=== PATIENT | male | born 1945 | race Hispanic/Latino ===

== ENCOUNTER 2019-09-30 23:44 | Emergency (ER) | payer MEDICARE ==
[~2019-09-30] VITALS: Ht 175.3 cm; Wt 85.7 kg
--- OUTSIDE RECORDS SUMMARY | 2019-09-30 23:49 | XMS REPORT ---
Author [facility] Address Unknown Phone Unavailable Care Team Providers Care Special Needs Teacher Name Role Phone Unavailable Unavailable Payers Payer Name Policy Type Policy Number Effective Date Expiration Date Problems This patient has no known problems. Allergies, Adverse Reactions, Alerts Allergy Name Allergy Type Status Severity Reaction(s) Onset Date Inactive Date Treating Clinician Comments No Known Allergies DA Active U 2019-08-21 00:00:00 No Known Contrast Allergies DA Active U 2005-10-22 00:00:00 No Known Drug Allergies DA Active U 2005-10-22 00:00:00 No Known Food Allergies DA Active U 2005-10-22 00:00:00 Medications This patient has no known medications. Results Test Description Test Time Test Comments Text Results Atomic Results Result Comments GLUBED 2019-09-18 10:03:00 GLUBED (test code=GLUBED) 151 mg/dL 74-106 Performed by certified blanching machine operator at [facility] [id number] 11:13:00* Test Item Value Reference Range Comments GLUBED (test code=GLUBED) 106 mg/dL 74-106 Performed by certified blanching machine operator at [facility] [id number] 07:37:00* Test Item Value Reference Range Comments GLUBED (test code=GLUBED) 125 mg/dL 74-106 Performed by certified blanching machine operator at [facility] [id number] 20:26:00* Test Item Value Reference Range Comments GLUBED (test code=GLUBED) 113 mg/dL 74-106 Performed by certified blanching machine operator at [facility] [id number] 14:51:00* Test Item Value Reference Range Comments GLUBED (test code=GLUBED) 130 mg/dL 74-106 Performed by certified blanching machine operator at [facility] [id number] 11:24:00* Test Item Value Reference Range Comments GLUBED (test code=GLUBED) 123 mg/dL 74-106 Performed by certified blanching machine operator at [facility] [id number] 07:41:00* Test Item Value Reference Range Comments GLUBED (test code=GLUBED) 127 mg/dL 74-106 Performed by certified blanching machine operator at [facility] [id number] 19:56:00* Test Item Value Reference Range Comments GLUBED (test code=GLUBED) 118 mg/dL 74-106 Performed by certified blanching machine operator at [facility] [id number] 16:51:00* Test Item Value Reference Range Comments GLUBED (test code=GLUBED) 120 mg/dL 74-106 [facility] certified blanching machine [facility] GASTRIC,[id number] 15:40:00 RUN DATE: 09/07/19 [place] - Lab PAGE 1 RUN TIME: 1540 Specimen Inqui ry RUN USER: INTERFACE PATIENT: MULUGETA DOTSON ACCT #: [id number] LOC: [facility] U #: [id number] AGE/SX: 73/M [facility] DR: Atul Maynard MD : 43 BED: A DIS: STATUS: ADM IN TLOC: SPEC #: [id number] RECD: 09/03/19 STATUS: EZEKIEL REQ #: [id number] NEEMA: 09/03/[address] [facility] [address]: Vikas Egan MD ENTERED: 09/03/19 SP TYPE: GASTRIC BX OTHR DR: Deondre Egan MD, Lawrence R MD Gonzalez, Julian J MD Guthikonda, Lalitha N MD Kalife, Gerardo MD Lee, Remington Pek Fong DO Pham, Dang Thanh MDORDERED: GROSS COPIES TO: Vikas Egan MD [address] [place] [address] Beka Louis MD [address] [place], [place] [id number] [place] [address] [place] [address] [place] [address] [facility] [place] [address] Deion Edgar MD [address] [place] [address] Tay Morrow DO [address] [place], [place] [address] Smitha Cruz MD [address] [place] [address] CONTINUED ON NEXT PAGE RUN DATE: 0 09/07/19 [facility] PAGE 2 RUN TIME: 1540 Specimen Inquiry R UN USER: INTERFACE --- ---------SPEC #: [id number] PATIENT: MULUGETA DOTSON #[id number] (Continued) PROCEDURES: GROSS (09/07/19-946) TISSUES: ANTRUM - BX CLINICAL HISTORY COLLECTION DATE: 09/03/19 DY SPHAGIA FINAL DIAGNOSIS Antrum, biopsy: CHRONIC INACTIVE GASTR ITIS NO INTESTINAL METAPLASIA SEEN NEGATIVE FOR HELICOBACTER PYLO RI BY GIEMSA STAIN NEGATIVE FOR MALIGNANCY DMW/[place]a D [id number], [address] MACROSCOPIC The specimen is received in formalin, labeled wi th the patient's name, and identified as "antrum bx", and consists of two ramirez biopsy tissue measuring 0.3 cm each. GROSS PERFORMED AT [facility] [address] [facility] [address] (P)[phone] MICROSCOPIC All of the stains, including any controls performed, stain appropriately. MICROSCOPIC PERFO RMED AT [facility] [address] [facility] [place] [address] (P)[phone] CONTINUED ON NEXT PAGE RUN DATE: 09/07/19 [place] [employer] [facility] PAGE 3 RUN TIME: 1540 Specimen Inquiry RUN USER: INTERFACE SPEC #: [id number] PATIENT: MULUGETA DOTSON #[id number] (Continued)--------- --- PERFORMING SITE Diagnosis performed at: [facility], [place] [address] [place] [address] Signed SIGNATURE ON FILE Clair East MD 09/07/19 1540 END OF REPORT [id number] 11:48:00* Test Item Value Reference Range Comments GLUBED (test code=GLUBED) 140 mg/dL 74-106 [facility] certified blanching machine [facility] [id number] 08:47:00* Test Item Value Reference Range Comments GLUBED (test code=GLUBED) 125 mg/dL 74-106 Performed by certified blanching machine operator [facility] BASIC METABOLIC [id number] 02:31:00* Test Item Value Reference Range Comments SODIUM (test code=NA) 137 mmol/L 136-145 POTASSIUM (test code=K) 4.2 mmol/L 3.5-5.1 CHLORIDE (test code=CL) 106.0 mmol/L 98-107 CARBON DIOXIDE (test code=CO2) 26.0 mmol/L 21-32 ANION GAP (test code=GAP) 9.2 10-20 GLUCOSE (test code=GLU) 136 mg/dL 74-106 BLOOD UREA NITROGEN (test code=BUN) 18 mg/dL 7-18 GLOMERULAR FILTRATION RATE (test code=GFR) > 60 mL/min >=60 Estimated GFR by using Modified MDRD formula.Chronic kidney disease is defined as either kidney damageor GFR <60 mL/min/1.73 m2 for >3 months. CREATININE (test code=CREAT) 0.80 mg/dL 0.7-1.3 BUN/CREATININE RATIO (test code=BUN/CREA) 23.7 10-20 CALCIUM (test code=CA) 7.9 mg/dL 8.5-10.1 [id number] 02:31:00* Test Item Value Reference Range Comments MAGNESIUM (test code=MAG) 2.0 mg/dL 1.8-2.4 BASIC METABOLIC [id number] 02:20:00* Test Item Value Reference Range Comments SODIUM (test code=NA) 137 mmol/L 136-145 POTASSIUM (test code=K) 4.2 mmol/L 3.5-5.1 CHLORIDE (test code=CL) 106.0 mmol/L 98-107 CARBON DIOXIDE (test code=CO2) mmol/L 21-32 ANION GAP (test code=GAP) 10-20 GLUCOSE (test code=GLU) mg/dL 74-106 BLOOD UREA NITROGEN (test code=BUN) mg/dL 7-18 GLOMERULAR FILTRATION RATE (test code=GFR) mL/min >=60 CREATININE (test code=CREAT) mg/dL 0.7-1.3 BUN/CREATININE RATIO (test code=BUN/CREA) 10-20 CALCIUM (test code=CA) mg/dL 8.5-10.1 [id number] 02:20:00* Test Item Value Reference Range Comments MAGNESIUM (test code=MAG) mg/dL 1.8-2.4 CBC W/O [id number] 02:10:00* Test Item Value Reference Range Comments WHITE BLOOD CELL (test code=WBC) 11.5 K/mm3 4.5-12.5 RED BLOOD CELL (test code=RBC) 4.39 mill/mm3 4.0-5.8 HEMOGLOBIN (test code=HGB) 12.0 gram/dL 13.0-17.5 HEMATOCRIT (test code=HCT) 37.8 % 42.0-52.0 MEAN CELL VOLUME (test code=MCV) 86.1 fL 80-98 MEAN CELL HGB (test code=MCH) 27.3 picogram 27.0-33.0 MEAN CELL HGB CONCETRATION (test code=MCHC) 31.7 gram/dL 33.0-36.0 RED CELL DISTRIBUTION WIDTH (test code=RDW) 13.8 % 11.6-16.2 PLATELET COUNT (test code=PLT) 404 K/mm3 150-450 MEAN PLATELET VOLUME (test code=MPV) 11.3 fL 6.7-11.0 [id number] 20:16:00* Test Item Value Reference Range Comments GLUBED (test code=GLUBED) 130 mg/dL 74-106 Performed by certified blanching machine operator at [facility] [id number] 16:29:00* Test Item Value Reference Range Comments GLUBED (test code=GLUBED) 116 mg/dL 74-106 Performed by certified blanching machine operator at [facility] [id number] 11:46:00* Test Item Value Reference Range Comments GLUBED (test code=GLUBED) 121 mg/dL 74-106 Performed by certified blanching machine operator at [facility] [id number] 08:17:00* Test Item Value Reference Range Comments GLUBED (test code=GLUBED) 134 mg/dL 74-106 Performed by certified blanching machine operator at [facility] BASIC METABOLIC [id number] 07:39:00* Test Item Value Reference Range Comments SODIUM (test code=NA) 140 mmol/L 136-145 POTASSIUM (test code=K) 4.5 mmol/L 3.5-5.1 CHLORIDE (test code=CL) 107.0 mmol/L 98-107 CARBON DIOXIDE (test code=CO2) 28.0 mmol/L 21-32 ANION GAP (test code=GAP) 9.5 10-20 GLUCOSE (test code=GLU) 110 mg/dL 74-106 BLOOD UREA NITROGEN (test code=BUN) 18 mg/dL 7-18 GLOMERULAR FILTRATION RATE (test code=GFR) > 60 mL/min >=60 Estimated GFR by using Modified MDRD formula.Chronic kidney disease is defined as either kidney damageor GFR <60 mL/min/1.73 m2 for >3 months. CREATININE (test code=CREAT) 0.80 mg/dL 0.7-1.3 BUN/CREATININE RATIO (test code=BUN/CREA) 21.8 10-20 CALCIUM (test code=CA) 7.5 mg/dL 8.5-10.1 CBC W/O [id number] 03:38:00* Test Item Value Reference Range Comments WHITE BLOOD CELL (test code=WBC) 13.2 K/mm3 4.5-12.5 RED BLOOD CELL (test code=RBC) 4.62 mill/mm3 4.0-5.8 HEMOGLOBIN (test code=HGB) 12.8 gram/dL 13.0-17.5 HEMATOCRIT (test code=HCT) 39.7 % 42.0-52.0 MEAN CELL VOLUME (test code=MCV) 85.9 fL 80-98 MEAN CELL HGB (test code=MCH) 27.7 picogram 27.0-33.0 MEAN CELL HGB CONCETRATION (test code=MCHC) 32.2 gram/dL 33.0-36.0 RED CELL DISTRIBUTION WIDTH (test code=RDW) 13.7 % 11.6-16.2 PLATELET COUNT (test code=PLT) 376 K/mm3 150-450 RESULT VERIFIED BY REPEAT ANALYSIS MEAN PLATELET VOLUME (test code=MPV) 11.6 fL 6.7-11.0 [id number] 03:04:00* Test Item Value Reference Range Comments MAGNESIUM (test code=MAG) 2.3 mg/dL 1.8-2.4 BASIC METABOLIC [id number] 05:58:00* Test Item Value Reference Range Comments SODIUM (test code=NA) 140 mmol/L 136-145 POTASSIUM (test code=K) 4.3 mmol/L 3.5-5.1 CHLORIDE (test code=CL) 109.0 mmol/L 98-107 CARBON DIOXIDE (test code=CO2) 27.0 mmol/L 21-32 ANION GAP (test code=GAP) 8.3 10-20 GLUCOSE (test code=GLU) 114 mg/dL 74-106 BLOOD UREA NITROGEN (test code=BUN) 22 mg/dL 7-18 GLOMERULAR FILTRATION RATE (test code=GFR) > 60 mL/min >=60 Estimated GFR by using Modified MDRD formula.Chronic kidney disease is defined as either kidney damageor GFR <60 mL/min/1.73 m2 for >3 months. CREATININE (test code=CREAT) 0.70 mg/dL 0.7-1.3 BUN/CREATININE RATIO (test code=BUN/CREA) 29.6 10-20 CALCIUM (test code=CA) 7.4 mg/dL 8.5-10.1 [id number] 05:58:00* Test Item Value Reference Range Comments PHOSPHORUS (test code=PHOS) 2.5 mg/dL 2.5-4.9 [id number] 05:58:00* Test Item Value Reference Range Comments MAGNESIUM (test code=MAG) 2.4 mg/dL 1.8-2.4 CALCIUM [id number] 05:58:00* Test Item Value Reference Range Comments CALCIUM IONIZED (test code=SHANNAN) 1.15 mmol/L 1.12-1.32 BASIC METABOLIC [id number] 05:47:00* Test Item Value Reference Range Comments SODIUM (test code=NA) 140 mmol/L 136-145 POTASSIUM (test code=K) 4.3 mmol/L 3.5-5.1 CHLORIDE (test code=CL) 109.0 mmol/L 98-107 CARBON DIOXIDE (test code=CO2) 27.0 mmol/L 21-32 ANION GAP (test code=GAP) 8.3 10-20 GLUCOSE (test code=GLU) 114 mg/dL 74-106 BLOOD UREA NITROGEN (test code=BUN) 22 mg/dL 7-18 GLOMERULAR FILTRATION RATE (test code=GFR) > 60 mL/min >=60 Estimated GFR by using Modified MDRD formula.Chronic kidney disease is defined as either kidney damageor GFR <60 mL/min/1.73 m2 for >3 months. CREATININE (test code=CREAT) 0.70 mg/dL 0.7-1.3 BUN/CREATININE RATIO (test code=BUN/CREA) 29.6 10-20 CALCIUM (test code=CA) 7.4 mg/dL 8.5-10.1 [id number] 05:47:00* Test Item Value Reference Range Comments PHOSPHORUS (test code=PHOS) 2.5 mg/dL 2.5-4.9 [id number] 05:47:00* Test Item Value Reference Range Comments MAGNESIUM (test code=MAG) 2.4 mg/dL 1.8-2.4 CALCIUM [id number] 05:47:00* Test Item Value Reference Range Comments CALCIUM IONIZED (test code=SHANNAN) mmol/L 1.12-1.32 BASIC METABOLIC [id number] 05:45:00* Test Item Value Reference Range Comments SODIUM (test code=NA) 140 mmol/L 136-145 POTASSIUM (test code=K) 4.3 mmol/L 3.5-5.1 CHLORIDE (test code=CL) 109.0 mmol/L 98-107 CARBON DIOXIDE (test code=CO2) mmol/L 21-32 ANION GAP (test code=GAP) 10-20 GLUCOSE (test code=GLU) mg/dL 74-106 BLOOD UREA NITROGEN (test code=BUN) mg/dL 7-18 GLOMERULAR FILTRATION RATE (test code=GFR) mL/min >=60 CREATININE (test code=CREAT) mg/dL 0.7-1.3 BUN/CREATININE RATIO (test code=BUN/CREA) 10-20 CALCIUM (test code=CA) mg/dL 8.5-10.1 [id number] 05:45:00* Test Item Value Reference Range Comments PHOSPHORUS (test code=PHOS) mg/dL 2.5-4.9 [id number] 05:45:00* Test Item Value Reference Range Comments MAGNESIUM (test code=MAG) mg/dL 1.8-2.4 CALCIUM [id number] 05:45:00* Test Item Value Reference Range Comments CALCIUM IONIZED (test code=SHANNAN) mmol/L 1.12-1.32 CBC W/O [id number] 05:36:00* Test Item Value Reference Range Comments WHITE BLOOD CELL (test code=WBC) 14.2 K/mm3 4.5-12.5 RED BLOOD CELL (test code=RBC) 4.72 mill/mm3 4.0-5.8 HEMOGLOBIN (test code=HGB) 13.1 gram/dL 13.0-17.5 HEMATOCRIT (test code=HCT) 40.8 % 42.0-52.0 MEAN CELL VOLUME (test code=MCV) 86.4 fL 80-98 MEAN CELL HGB (test code=MCH) 27.8 picogram 27.0-33.0 MEAN CELL HGB CONCETRATION (test code=MCHC) 32.1 gram/dL 33.0-36.0 RED CELL DISTRIBUTION WIDTH (test code=RDW) 13.4 % 11.6-16.2 PLATELET COUNT (test code=PLT) 276 K/mm3 150-450 MEAN PLATELET VOLUME (test code=MPV) 11.7 fL 6.7-11.0 CBC W/O [id number] 05:34:00* Test Item Value Reference Range Comments WHITE BLOOD CELL (test code=WBC) K/mm3 4.5-12.5 RED BLOOD CELL (test code=RBC) mill/mm3 4.0-5.8 HEMOGLOBIN (test code=HGB) 13.1 gram/dL 13.0-17.5 HEMATOCRIT (test code=HCT) % 42.0-52.0 MEAN CELL VOLUME (test code=MCV) fL 80-98 MEAN CELL HGB (test code=MCH) picogram 27.0-33.0 MEAN CELL HGB CONCETRATION (test code=MCHC) gram/dL 33.0-36.0 RED CELL DISTRIBUTION WIDTH (test code=RDW) % 11.6-16.2 PLATELET COUNT (test code=PLT) K/mm3 150-450 MEAN PLATELET VOLUME (test code=MPV) fL 6.7-11.0 THROMBOPLASTIN TIME [id number] 09:56:00* Test Item Value Reference Range Comments THROMBOPLASTIN TIME PARTIAL (test code=PTT) 67.2 seconds 25.0-36.5 IS PATIENT ON ANTICOAGULANTS? YLIST ANTICOAGULANTS HEPARINBASIC METABOLIC [id number] 05:09:00* Test Item Value Reference Range Comments SODIUM (test code=NA) 141 mmol/L 136-145 POTASSIUM (test code=K) 4.6 mmol/L 3.5-5.1 CHLORIDE (test code=CL) 108.0 mmol/L 98-107 CARBON DIOXIDE (test code=CO2) 31.0 mmol/L 21-32 ANION GAP (test code=GAP) 6.6 10-20 GLUCOSE (test code=GLU) 118 mg/dL 74-106 BLOOD UREA NITROGEN (test code=BUN) 37 mg/dL 7-18 RESULT VERIFIED BY REPEAT ANALYSIS GLOMERULAR FILTRATION RATE (test code=GFR) > 60 mL/min >=60 Estimated GFR by using Modified MDRD formula.Chronic kidney disease is defined as either kidney damageor GFR <60 mL/min/1.73 m2 for >3 months. CREATININE (test code=CREAT) 1.10 mg/dL 0.7-1.3 BUN/CREATININE RATIO (test code=BUN/CREA) 33.6 10-20 CALCIUM (test code=CA) 7.7 mg/dL 8.5-10.1 [id number] 05:09:00* Test Item Value Reference Range Comments PHOSPHORUS (test code=PHOS) 2.8 mg/dL 2.5-4.9 [id number] 05:09:00* Test Item Value Reference Range Comments MAGNESIUM (test code=MAG) 2.7 mg/dL 1.8-2.4 CALCIUM [id number] 05:09:00* Test Item Value Reference Range Comments CALCIUM IONIZED (test code=SHANNAN) 1.14 mmol/L 1.12-1.32 BASIC METABOLIC [id number] 04:47:00* Test Item Value Reference Range Comments SODIUM (test code=NA) 141 mmol/L 136-145 POTASSIUM (test code=K) 4.6 mmol/L 3.5-5.1 CHLORIDE (test code=CL) 108.0 mmol/L 98-107 CARBON DIOXIDE (test code=CO2) 31.0 mmol/L 21-32 ANION GAP (test code=GAP) 6.6 10-20 GLUCOSE (test code=GLU) 118 mg/dL 74-106 BLOOD UREA NITROGEN (test code=BUN) 37 mg/dL 7-18 RESULT VERIFIED BY REPEAT ANALYSIS GLOMERULAR FILTRATION RATE (test code=GFR) > 60 mL/min >=60 Estimated GFR by using Modified MDRD formula.Chronic kidney disease is defined as either kidney damageor GFR <60 mL/min/1.73 m2 for >3 months. CREATININE (test code=CREAT) 1.10 mg/dL 0.7-1.3 BUN/CREATININE RATIO (test code=BUN/CREA) 33.6 10-20 CALCIUM (test code=CA) 7.7 mg/dL 8.5-10.1 [id number] 04:47:00* Test Item Value Reference Range Comments PHOSPHORUS (test code=PHOS) 2.8 mg/dL 2.5-4.9 [id number] 04:47:00* Test Item Value Reference Range Comments MAGNESIUM (test code=MAG) 2.7 mg/dL 1.8-2.4 CALCIUM [id number] 04:47:00* Test Item Value Reference Range Comments CALCIUM IONIZED (test code=SHANNAN) mmol/L 1.12-1.32 CBC W/AUTO [id number] 04:01:00* Test Item Value Reference Range Comments WHITE BLOOD CELL (test code=WBC) 20.7 K/mm3 4.5-12.5 RED BLOOD CELL (test code=RBC) 4.49 mill/mm3 4.0-5.8 HEMOGLOBIN (test code=HGB) 12.5 gram/dL 13.0-17.5 HEMATOCRIT (test code=HCT) 39.4 % 42.0-52.0 MEAN CELL VOLUME (test code=MCV) 87.8 fL 80-98 MEAN CELL HGB (test code=MCH) 27.8 picogram 27.0-33.0 MEAN CELL HGB CONCETRATION (test code=MCHC) 31.7 gram/dL 33.0-36.0 RED CELL DISTRIBUTION WIDTH (test code=RDW) 13.6 % 11.6-16.2 RED CELL DISTRIBUTION WIDTH SD (test code=RDW-SD) 43.1 fL 37.0-51.0 PLATELET COUNT (test code=PLT) 265 K/mm3 150-450 MEAN PLATELET VOLUME (test code=MPV) 12.4 fL 6.7-11.0 NEUTROPHIL % (test code=NT%) 86.7 % 39.0-69.0 IMMATURE GRANULOCYTE % (test code=IG%) 1.3 % 0.0-5.0 LYMPHOCYTE % (test code=LY%) 6.8 % 25.0-55.0 MONOCYTE % (test code=MO%) 4.4 % 0.0-10.0 EOSINOPHIL % (test code=EO%) 0.6 % 0.0-5.0 BASOPHIL % (test code=BA%) 0.2 % 0.0-1.0 NUCLEATED RBC % (test code=NRBC%) 0.0 % 0-0 NEUTROPHIL # (test code=NT#) 17.94 K/mm3 1.8-7.7 IMMATURE GRANULOCYTE # (test code=IG#) 0.26 x10 3/uL 0-0.03 LYMPHOCYTE # (test code=LY#) 1.40 K/mm3 1.0-5.0 MONOCYTE # (test code=MO#) 0.92 K/mm3 0-0.8 EOSINOPHIL # (test code=EO#) 0.13 K/mm3 0.0-0.5 BASOPHIL # (test code=BA#) 0.05 K/mm3 0.0-0.2 NUCLEATED RBC # (test code=NRBC#) 0.00 K/mm3 0.0-0.1 MANUAL DIFF REQUIRED (test code=MDIFF) NO BASIC METABOLIC [id number] 03:57:00* Test Item Value Reference Range Comments SODIUM (test code=NA) 141 mmol/L 136-145 POTASSIUM (test code=K) 4.6 mmol/L 3.5-5.1 CHLORIDE (test code=CL) 108.0 mmol/L 98-107 CARBON DIOXIDE (test code=CO2) mmol/L 21-32 ANION GAP (test code=GAP) 10-20 GLUCOSE (test code=GLU) mg/dL 74-106 BLOOD UREA NITROGEN (test code=BUN) mg/dL 7-18 GLOMERULAR FILTRATION RATE (test code=GFR) mL/min >=60 CREATININE (test code=CREAT) mg/dL 0.7-1.3 BUN/CREATININE RATIO (test code=BUN/CREA) 10-20 CALCIUM (test code=CA) mg/dL 8.5-10.1 [id number] 03:57:00* Test Item Value Reference Range Comments PHOSPHORUS (test code=PHOS) mg/dL 2.5-4.9 [id number] 03:57:00* Test Item Value Reference Range Comments MAGNESIUM (test code=MAG) mg/dL 1.8-2.4 CALCIUM [id number] 03:57:00* Test Item Value Reference Range Comments CALCIUM IONIZED (test code=SHANNAN) mmol/L 1.12-1.32 THROMBOPLASTIN TIME [id number] 21:46:00* Test Item Value Reference Range Comments THROMBOPLASTIN TIME PARTIAL (test code=PTT) 29.2 seconds 25.0-36.5 IS PATIENT ON ANTICOAGULANTS? YLIST ANTICOAGULANTS HEPARINBASIC METABOLIC [id number] 03:42:00* Test Item Value Reference Range Comments SODIUM (test code=NA) 139 mmol/L 136-145 POTASSIUM (test code=K) 4.7 mmol/L 3.5-5.1 CHLORIDE (test code=CL) 105.0 mmol/L 98-107 CARBON DIOXIDE (test code=CO2) 27.0 mmol/L 21-32 ANION GAP (test code=GAP) 11.7 10-20 GLUCOSE (test code=GLU) 137 mg/dL 74-106 BLOOD UREA NITROGEN (test code=BUN) 53 mg/dL 7-18 GLOMERULAR FILTRATION RATE (test code=GFR) 46 mL/min >=60 Estimated GFR by using Modified MDRD formula.Chronic kidney disease is defined as either kidney damageor GFR <60 mL/min/1.73 m2 for >3 months. CREATININE (test code=CREAT) 1.50 mg/dL 0.7-1.3 BUN/CREATININE RATIO (test code=BUN/CREA) 35.3 10-20 CALCIUM (test code=CA) 8.1 mg/dL 8.5-10.1 [id number] 03:42:00* Test Item Value Reference Range Comments PHOSPHORUS (test code=PHOS) 3.8 mg/dL 2.5-4.9 [id number] 03:42:00* Test Item Value Reference Range Comments MAGNESIUM (test code=MAG) 2.7 mg/dL 1.8-2.4 CALCIUM [id number] 03:42:00* Test Item Value Reference Range Comments CALCIUM IONIZED (test code=SHANNAN) 1.12 mmol/L 1.12-1.32 BASIC METABOLIC [id number] 03:26:00* Test Item Value Reference Range Comments SODIUM (test code=NA) 139 mmol/L 136-145 POTASSIUM (test code=K) 4.7 mmol/L 3.5-5.1 CHLORIDE (test code=CL) 105.0 mmol/L 98-107 CARBON DIOXIDE (test code=CO2) 27.0 mmol/L 21-32 ANION GAP (test code=GAP) 11.7 10-20 GLUCOSE (test code=GLU) 137 mg/dL 74-106 BLOOD UREA NITROGEN (test code=BUN) 53 mg/dL 7-18 GLOMERULAR FILTRATION RATE (test code=GFR) 46 mL/min >=60 Estimated GFR by using Modified MDRD formula.Chronic kidney disease is defined as either kidney damageor GFR <60 mL/min/1.73 m2 for >3 months. CREATININE (test code=CREAT) 1.50 mg/dL 0.7-1.3 BUN/CREATININE RATIO (test code=BUN/CREA) 35.3 10-20 CALCIUM (test code=CA) 8.1 mg/dL 8.5-10.1 [id number] 03:26:00* Test Item Value Reference Range Comments PHOSPHORUS (test code=PHOS) 3.8 mg/dL 2.5-4.9 [id number] 03:26:00* Test Item Value Reference Range Comments MAGNESIUM (test code=MAG) 2.7 mg/dL 1.8-2.4 CALCIUM [id number] 03:26:00* Test Item Value Reference Range Comments CALCIUM IONIZED (test code=SHANNAN) mmol/L 1.12-1.32 BASIC METABOLIC [id number] 03:19:00* Test Item Value Reference Range Comments SODIUM (test code=NA) 139 mmol/L 136-145 POTASSIUM (test code=K) 4.7 mmol/L 3.5-5.1 CHLORIDE (test code=CL) 105.0 mmol/L 98-107 CARBON DIOXIDE (test code=CO2) mmol/L 21-32 ANION GAP (test code=GAP) 10-20 GLUCOSE (test code=GLU) mg/dL 74-106 BLOOD UREA NITROGEN (test code=BUN) mg/dL 7-18 GLOMERULAR FILTRATION RATE (test code=GFR) mL/min >=60 CREATININE (test code=CREAT) mg/dL 0.7-1.3 BUN/CREATININE RATIO (test code=BUN/CREA) 10-20 CALCIUM (test code=CA) mg/dL 8.5-10.1 [id number] 03:19:00* Test Item Value Reference Range Comments PHOSPHORUS (test code=PHOS) mg/dL 2.5-4.9 [id number] 03:19:00* Test Item Value Reference Range Comments MAGNESIUM (test code=MAG) mg/dL 1.8-2.4 CALCIUM [id number] 03:19:00* Test Item Value Reference Range Comments CALCIUM IONIZED (test code=SHANNAN) mmol/L 1.12-1.32 CBC W/AUTO [id number] 02:48:00* Test Item Value Reference Range Comments WHITE BLOOD CELL (test code=WBC) 18.4 K/mm3 4.5-12.5 RED BLOOD CELL (test code=RBC) 4.92 mill/mm3 4.0-5.8 HEMOGLOBIN (test code=HGB) 13.4 gram/dL 13.0-17.5 HEMATOCRIT (test code=HCT) 42.4 % 42.0-52.0 MEAN CELL VOLUME (test code=MCV) 86.2 fL 80-98 MEAN CELL HGB (test code=MCH) 27.2 picogram 27.0-33.0 MEAN CELL HGB CONCETRATION (test code=MCHC) 31.6 gram/dL 33.0-36.0 RED CELL DISTRIBUTION WIDTH (test code=RDW) 13.6 % 11.6-16.2 RED CELL DISTRIBUTION WIDTH SD (test code=RDW-SD) 42.5 fL 37.0-51.0 PLATELET COUNT (test code=PLT) 280 K/mm3 150-450 MEAN PLATELET VOLUME (test code=MPV) 12.1 fL 6.7-11.0 NEUTROPHIL % (test code=NT%) 83.9 % 39.0-69.0 IMMATURE GRANULOCYTE % (test code=IG%) 1.9 % 0.0-5.0 LYMPHOCYTE % (test code=LY%) 8.7 % 25.0-55.0 MONOCYTE % (test code=MO%) 4.4 % 0.0-10.0 EOSINOPHIL % (test code=EO%) 0.8 % 0.0-5.0 BASOPHIL % (test code=BA%) 0.3 % 0.0-1.0 NUCLEATED RBC % (test code=NRBC%) 0.0 % 0-0 NEUTROPHIL # (test code=NT#) 15.42 K/mm3 1.8-7.7 IMMATURE GRANULOCYTE # (test code=IG#) 0.34 x10 3/uL 0-0.03 LYMPHOCYTE # (test code=LY#) 1.60 K/mm3 1.0-5.0 MONOCYTE # (test code=MO#) 0.80 K/mm3 0-0.8 EOSINOPHIL # (test code=EO#) 0.14 K/mm3 0.0-0.5 BASOPHIL # (test code=BA#) 0.05 K/mm3 0.0-0.2 NUCLEATED RBC # (test code=NRBC#) 0.00 K/mm3 0.0-0.1 MANUAL DIFF REQUIRED (test code=MDIFF) NO CBC W/AUTO [id number] 02:46:00* Test Item Value Reference Range Comments WHITE BLOOD CELL (test code=WBC) K/mm3 4.5-12.5 RED BLOOD CELL (test code=RBC) mill/mm3 4.0-5.8 HEMOGLOBIN (test code=HGB) 13.4 gram/dL 13.0-17.5 HEMATOCRIT (test code=HCT) 42.4 % 42.0-52.0 MEAN CELL VOLUME (test code=MCV) fL 80-98 MEAN CELL HGB (test code=MCH) picogram 27.0-33.0 MEAN CELL HGB CONCETRATION (test code=MCHC) gram/dL 33.0-36.0 RED CELL DISTRIBUTION WIDTH (test code=RDW) % 11.6-16.2 RED CELL DISTRIBUTION WIDTH SD (test code=RDW-SD) fL 37.0-51.0 PLATELET COUNT (test code=PLT) K/mm3 150-450 MEAN PLATELET VOLUME (test code=MPV) fL 6.7-11.0 NEUTROPHIL % (test code=NT%) % 39.0-69.0 IMMATURE GRANULOCYTE % (test code=IG%) % 0.0-5.0 LYMPHOCYTE % (test code=LY%) % 25.0-55.0 MONOCYTE % (test code=MO%) % 0.0-10.0 EOSINOPHIL % (test code=EO%) % 0.0-5.0 BASOPHIL % (test code=BA%) % 0.0-1.0 NEUTROPHIL # (test code=NT#) K/mm3 1.8-7.7 LYMPHOCYTE # (test code=LY#) K/mm3 1.0-5.0 MONOCYTE # (test code=MO#) K/mm3 0-0.8 EOSINOPHIL # (test code=EO#) K/mm3 0.0-0.5 BASOPHIL # (test code=BA#) K/mm3 0.0-0.2 - XR CHEST 1 [id number] 06:21:00 FAX: Hung Laura [place]: St: ADM FAX: Davie Allen [phone] FAX: Atul Maynard MD [phone] Name: MULUGETA DOTSON [facility] : 1945 Age/S: 73/M [address] [facility] Unit #: [id number] Loc: VPatti [place] [address] Phys: Hung Laura Acct: [id number] Dis Date: Status: ADM IN PH ONE #: [phone] Exam Date: 09/02/2019 0540 FAX #: [phone] Reason: respiratory failure EXAMS: CPT CODE: [id number] XR CHEST 1 V 95462 CLINICAL HISTO RY: respiratory failure TECHNIQUE: AP chest x-ray CO MPARISON: Previous day. IMPRESSION: No signifi cant interval change. Bibasilar atelectasis, greater on the left. Cardio megaly. 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 ET and NG tubes. LOCATION: LP E lectronically Signed by Lilian Cruz D.O. on 09/02/2019 at 0621 Reported and signed by: Lilian Cruz D.O. CC: Hung Laura; Davie Schultz; Atul Maynard MD Technologist: RENZO Earl Trnscrd Date/Time/By: 09/02/2019 (620) : By: [email or web address] Orig Print D/T: S: 09/02/2019 (0648) PAGE 1 Signed Report BASIC METABOLIC [id number] 03:30:00* Test Item Value Reference Range Comments SODIUM (test code=NA) 139 mmol/L 136-145 POTASSIUM (test code=K) 4.3 mmol/L 3.5-5.1 CHLORIDE (test code=CL) 106.0 mmol/L 98-107 CARBON DIOXIDE (test code=CO2) 26.0 mmol/L 21-32 ANION GAP (test code=GAP) 11.3 10-20 GLUCOSE (test code=GLU) 137 mg/dL 74-106 BLOOD UREA NITROGEN (test code=BUN) 49 mg/dL 7-18 GLOMERULAR FILTRATION RATE (test code=GFR) 46 mL/min >=60 Estimated GFR by using Modified MDRD formula.Chronic kidney disease is defined as either kidney damageor GFR <60 mL/min/1.73 m2 for >3 months. CREATININE (test code=CREAT) 1.50 mg/dL 0.7-1.3 BUN/CREATININE RATIO (test code=BUN/CREA) 32.7 10-20 CALCIUM (test code=CA) 8.2 mg/dL 8.5-10.1 [id number] 03:30:00* Test Item Value Reference Range Comments PHOSPHORUS (test code=PHOS) 4.2 mg/dL 2.5-4.9 [id number] 03:30:00* Test Item Value Reference Range Comments MAGNESIUM (test code=MAG) 2.6 mg/dL 1.8-2.4 CALCIUM [id number] 03:30:00* Test Item Value Reference Range Comments CALCIUM IONIZED (test code=SHANNAN) 1.17 mmol/L 1.12-1.32 BASIC METABOLIC [id number] 03:29:00* Test Item Value Reference Range Comments SODIUM (test code=NA) 139 mmol/L 136-145 POTASSIUM (test code=K) 4.3 mmol/L 3.5-5.1 CHLORIDE (test code=CL) 106.0 mmol/L 98-107 CARBON DIOXIDE (test code=CO2) mmol/L 21-32 ANION GAP (test code=GAP) 10-20 GLUCOSE (test code=GLU) mg/dL 74-106 BLOOD UREA NITROGEN (test code=BUN) mg/dL 7-18 GLOMERULAR FILTRATION RATE (test code=GFR) mL/min >=60 CREATININE (test code=CREAT) mg/dL 0.7-1.3 BUN/CREATININE RATIO (test code=BUN/CREA) 10-20 CALCIUM (test code=CA) mg/dL 8.5-10.1 [id number] 03:29:00* Test Item Value Reference Range Comments PHOSPHORUS (test code=PHOS) mg/dL 2.5-4.9 [id number] 03:29:00* Test Item Value Reference Range Comments MAGNESIUM (test code=MAG) mg/dL 1.8-2.4 CALCIUM [id number] 03:29:00* Test Item Value Reference Range Comments CALCIUM IONIZED (test code=SHANNAN) 1.17 mmol/L 1.12-1.32 BASIC METABOLIC [id number] 03:21:00* Test Item Value Reference Range Comments SODIUM (test code=NA) 139 mmol/L 136-145 POTASSIUM (test code=K) 4.3 mmol/L 3.5-5.1 CHLORIDE (test code=CL) 106.0 mmol/L 98-107 CARBON DIOXIDE (test code=CO2) mmol/L 21-32 ANION GAP (test code=GAP) 10-20 GLUCOSE (test code=GLU) mg/dL 74-106 BLOOD UREA NITROGEN (test code=BUN) mg/dL 7-18 GLOMERULAR FILTRATION RATE (test code=GFR) mL/min >=60 CREATININE (test code=CREAT) mg/dL 0.7-1.3 BUN/CREATININE RATIO (test code=BUN/CREA) 10-20 CALCIUM (test code=CA) mg/dL 8.5-10.1 [id number] 03:21:00* Test Item Value Reference Range Comments PHOSPHORUS (test code=PHOS) mg/dL 2.5-4.9 [id number] 03:21:00* Test Item Value Reference Range Comments MAGNESIUM (test code=MAG) mg/dL 1.8-2.4 CALCIUM [id number] 03:21:00* Test Item Value Reference Range Comments CALCIUM IONIZED (test code=SHANNAN) mmol/L 1.12-1.32 CBC W/AUTO [id number] 03:08:00* Test Item Value Reference Range Comments WHITE BLOOD CELL (test code=WBC) 15.7 K/mm3 4.5-12.5 RED BLOOD CELL (test code=RBC) 5.33 mill/mm3 4.0-5.8 HEMOGLOBIN (test code=HGB) 14.4 gram/dL 13.0-17.5 HEMATOCRIT (test code=HCT) 46.0 % 42.0-52.0 MEAN CELL VOLUME (test code=MCV) 86.3 fL 80-98 MEAN CELL HGB (test code=MCH) 27.0 picogram 27.0-33.0 MEAN CELL HGB CONCETRATION (test code=MCHC) 31.3 gram/dL 33.0-36.0 RED CELL DISTRIBUTION WIDTH (test code=RDW) 13.6 % 11.6-16.2 RED CELL DISTRIBUTION WIDTH SD (test code=RDW-SD) 42.3 fL 37.0-51.0 PLATELET COUNT (test code=PLT) 280 K/mm3 150-450 MEAN PLATELET VOLUME (test code=MPV) 12.0 fL 6.7-11.0 NEUTROPHIL % (test code=NT%) 79.4 % 39.0-69.0 IMMATURE GRANULOCYTE % (test code=IG%) 2.6 % 0.0-5.0 LYMPHOCYTE % (test code=LY%) 10.3 % 25.0-55.0 MONOCYTE % (test code=MO%) 5.7 % 0.0-10.0 EOSINOPHIL % (test code=EO%) 1.7 % 0.0-5.0 BASOPHIL % (test code=BA%) 0.3 % 0.0-1.0 NUCLEATED RBC % (test code=NRBC%) 0.0 % 0-0 NEUTROPHIL # (test code=NT#) 12.47 K/mm3 1.8-7.7 IMMATURE GRANULOCYTE # (test code=IG#) 0.41 x10 3/uL 0-0.03 LYMPHOCYTE # (test code=LY#) 1.61 K/mm3 1.0-5.0 MONOCYTE # (test code=MO#) 0.89 K/mm3 0-0.8 EOSINOPHIL # (test code=EO#) 0.26 K/mm3 0.0-0.5 BASOPHIL # (test code=BA#) 0.04 K/mm3 0.0-0.2 NUCLEATED RBC # (test code=NRBC#) 0.00 K/mm3 0.0-0.1 MANUAL DIFF REQUIRED (test code=MDIFF) NO CBC W/AUTO [id number] 03:07:00* Test Item Value Reference Range Comments WHITE BLOOD CELL (test code=WBC) K/mm3 4.5-12.5 RED BLOOD CELL (test code=RBC) mill/mm3 4.0-5.8 HEMOGLOBIN (test code=HGB) 14.4 gram/dL 13.0-17.5 HEMATOCRIT (test code=HCT) 46.0 % 42.0-52.0 MEAN CELL VOLUME (test code=MCV) fL 80-98 MEAN CELL HGB (test code=MCH) picogram 27.0-33.0 MEAN CELL HGB CONCETRATION (test code=MCHC) gram/dL 33.0-36.0 RED CELL DISTRIBUTION WIDTH (test code=RDW) % 11.6-16.2 RED CELL DISTRIBUTION WIDTH SD (test code=RDW-SD) fL 37.0-51.0 PLATELET COUNT (test code=PLT) K/mm3 150-450 MEAN PLATELET VOLUME (test code=MPV) fL 6.7-11.0 NEUTROPHIL % (test code=NT%) % 39.0-69.0 IMMATURE GRANULOCYTE % (test code=IG%) % 0.0-5.0 LYMPHOCYTE % (test code=LY%) % 25.0-55.0 MONOCYTE % (test code=MO%) % 0.0-10.0 EOSINOPHIL % (test code=EO%) % 0.0-5.0 BASOPHIL % (test code=BA%) % 0.0-1.0 NEUTROPHIL # (test code=NT#) K/mm3 1.8-7.7 LYMPHOCYTE # (test code=LY#) K/mm3 1.0-5.0 MONOCYTE # (test code=MO#) K/mm3 0-0.8 EOSINOPHIL # (test code=EO#) K/mm3 0.0-0.5 BASOPHIL # (test code=BA#) K/mm3 0.0-0.2 ARTERIAL BLOOD [id number] 16:02:00* Test Item Value Reference Range Comments ARTERIAL BLOOD GAS PH (test code=PHA) 7.38 7.35-7.45 ARTERIAL BLOOD GAS PCO2 (test code=PCO2A) 39.6 mm Hg 35-45 ARTERIAL BLOOD GAS PO2 (test code=PO2A) 164.0 mmHg 80-100 BICARBONATE TOTAL HCO3 (test code=HCO3) 23.1 mmol/L 23.0-27.0 BASE EXCESS (test code=MEHUL) -1.7 mmol/L -3.0-5.0 ABG O2 SATURATION (test code=SATA) 98.9 % 90.0-98.0 ABG TYPE (test code=TYPEA) Arterial FIO2 (test code=FIO2A) 100.0 ABG VENT MODE (test code=MODEA) Assist Control ABG VENT RESP RATE (test code=RRA) 14.0 per min ABG TIDAL VOLUME (test code=TVA) 450.0 mL ABG PEEP (test code=PEEPA) 8.0 cmH2O ABG SITE (test code=SITEA) Rt RADIAL ARTERY MODIFIED ALLENS (test code=MODALL) Yes CHECK PERFORMED SODIUM (test code=NA/ABG) 136.6 mEq/L 135-148 POTASSIUM (test code=K/ABG) 4.4 mEq/L 3.5-4.5 CHLORIDE (test code=CL/ABG) 104 mEq/L 98-106 GLUCOSE (test code=GLU/ABG) 130 mg/dL 74-99 HEMATOCRIT (test code=HCT/ABG) 47 % 42-52 IONIZED CALCIUM (test code=CAIABG) 1.15 mmol/L 1.1-1.37 TOTAL HGB (test code=THB) 15.9 gram/dL 13.0-17.5 HGB O2 SAT (test code=HBOSAT) 97.9 % 94.00-98.00 CARBOXYHEMOGLOBIN (test code=HOHGBT) 0.5 %totalHg 0.5-1.5 METHEMOGLOBIN (test code=METHGB) 0.5 % 0.0-1.50 O2 CONTENT (test code=O2CT) 22.2 % vol 18.0-22.0 ARTERIAL BLOOD [id number] 16:00:00* Test Item Value Reference Range Comments ARTERIAL BLOOD GAS PH (test code=PHA) 7.45 7.35-7.45 ARTERIAL BLOOD GAS PCO2 (test code=PCO2A) 38.7 mm Hg 35-45 ARTERIAL BLOOD GAS PO2 (test code=PO2A) 87.9 mmHg 80-100 BICARBONATE TOTAL HCO3 (test code=HCO3) 26.2 mmol/L 23.0-27.0 BASE EXCESS (test code=MEHUL) 2.2 mmol/L -3.0-5.0 ABG O2 SATURATION (test code=SATA) 96.7 % 90.0-98.0 ABG TYPE (test code=TYPEA) Arterial FIO2 (test code=FIO2A) 100.0 ABG L/M (test code=L/M) 40.00 L/MIN ABG SITE (test code=SITEA) Rt RADIAL ARTERY MODIFIED ALLENS (test code=MODALL) Yes CHECK PERFORMED SODIUM (test code=NA/ABG) 137.2 mEq/L 135-148 POTASSIUM (test code=K/ABG) 4.0 mEq/L 3.5-4.5 CHLORIDE (test code=CL/ABG) 104 mEq/L 98-106 GLUCOSE (test code=GLU/ABG) 127 mg/dL 74-99 HEMATOCRIT (test code=HCT/ABG) 46 % 42-52 IONIZED CALCIUM (test code=CAIABG) 1.16 mmol/L 1.1-1.37 TOTAL HGB (test code=THB) 15.6 gram/dL 13.0-17.5 HGB O2 SAT (test code=HBOSAT) 95.7 % 94.00-98.00 CARBOXYHEMOGLOBIN (test code=HOHGBT) 0.6 %totalHg 0.5-1.5 METHEMOGLOBIN (test code=METHGB) 0.4 % 0.0-1.50 O2 CONTENT (test code=O2CT) 21.0 % vol 18.0-22.0 - XR CHEST 1 [id number] 14:52:00 FAX: Davie Allen [phone] [place]: St: ADM FAX: Atul Maynard MD [phone] FAX: Smitha Cruz MD [phone] Name: MULUGETA DOTSON [facility] : 1945 Age/S: 73/M [address] [facility] Unit #: [id number] Loc: V.S07 [place] [address] Phys: Smitha Cruz MD Acct: [id number] Dis Date: Status: ADM IN [facility] #: [phone] Exam Date: 09/01/2019 1444 FAX #: [phone] Reason: S/P INTUBATED EXAMS: CPT CODE: [id number] XR CHEST 1 V 70404 REASON FOR EXAM: S/P INTUBATED Exam Order Date: 09/01/2019 2:31 PM Ordering MGali: Smitha Cruz MD PROCEDURE: - XR CHEST 1 V COMPARISON: Chest x-ray earlier today at 5:20 AM FINDINGS/ IMPRESSION: The patient has been intubated with ET tu be terminating approximately 7.4 cm above the santi. Additionally the s iza port of the enteric suction tube terminates in the distal esophagus and advancement by 8 cm is recommended. Cardiopulmonary findings are unc hanged. Location: [facility] at 1452 Reported and signed by : Celso Coker MD CC: Davie Schultz; Atul Maynard MD; Smitha White MD Technologist: Yumiko Montgomery RT(R); STUDENT TECHNOLOGIST Trnscrd Date/Time/By: 09/01/2019 (1350) : By: [email or web address] Orig Print D/T: S: 09/01/2019 (6477) PAGE 1 Signed Report [id number] 12:45:00* Test Item Value Reference Range Comments DIGOXIN (test code=DIG) 1.1 ng/mL 0.90-2.0 NOTE: Spironolactone interference may cause a decrease inreported Digoxin results of 11-30 %. THROMBOPLASTIN TIME [id number] 12:14:00* Test Item Value Reference Range Comments THROMBOPLASTIN TIME PARTIAL (test code=PTT) 29.5 seconds 25.0-36.5 NO [email or web address] [email or web address] 09/01/19 0315IS PATIENT ON ANTICOAGULANTS? YLIST ANTICOAGU LANTS HEPARIN- XR CHEST 1 [id number] 06:24:00 FAX: Hung Laura [place]: B St: ADM FAX: Davie Allen [phone] FAX: Atul Maynard MD [phone] Name: MULUGETA DOTSON [facility] : 1945 Age/S: 73/M [address] Unit #: [id number] Loc: VS0 [place] [address] Phys: Hung Laura Acct: [id number] Dis Date: Status: ADM IN PH ONE #: [phone] Exam Date: 09/01/201928 FAX #: [phone] Reason: respiratory failure EXAMS: CPT CODE: [id number] XR CHEST 1 V 52703 CLINICAL HISTO RY: respiratory failure TECHNIQUE: AP chest x-ray CO MPARISON: Previous day. IMPRESSION: No signifi cant interval change. Left retrocardiac atelectasis. Mild right basilar subsegmental atelectasis. Cardiomegaly. Atherosclerotic vascular calcifi cation of the thoracic aorta. NG tube. LOC ATION: LP at 0624 Reported and signed by: Lilian Cruz D.O. CC: Hung Guido; Davie Schultz; Atul Maynard MD Technologist: RENZO PRYOR JR; Parisa Earl Trnscrd Date/Time/By: 09/01/2019 (623 ) : By: [email or web address] Orig Print D/T: S: 09/01/2019 (626) PAGE 1 Signed Report BASIC METABOLIC [id number] 03:54:00* Test Item Value Reference Range Comments SODIUM (test code=NA) 142 mmol/L 136-145 POTASSIUM (test code=K) 4.1 mmol/L 3.5-5.1 CHLORIDE (test code=CL) 108.0 mmol/L 98-107 CARBON DIOXIDE (test code=CO2) 26.0 mmol/L 21-32 ANION GAP (test code=GAP) 12.1 10-20 GLUCOSE (test code=GLU) 160 mg/dL 74-106 BLOOD UREA NITROGEN (test code=BUN) 43 mg/dL 7-18 GLOMERULAR FILTRATION RATE (test code=GFR) 59 mL/min >=60 Estimated GFR by using Modified MDRD formula.Chronic kidney disease is defined as either kidney damageor GFR <60 mL/min/1.73 m2 for >3 months. CREATININE (test code=CREAT) 1.20 mg/dL 0.7-1.3 BUN/CREATININE RATIO (test code=BUN/CREA) 35.8 10-20 CALCIUM (test code=CA) 8.1 mg/dL 8.5-10.1 [id number] 03:54:00* Test Item Value Reference Range Comments PHOSPHORUS (test code=PHOS) 3.3 mg/dL 2.5-4.9 [id number] 03:54:00* Test Item Value Reference Range Comments MAGNESIUM (test code=MAG) 2.5 mg/dL 1.8-2.4 CALCIUM [id number] 03:54:00* Test Item Value Reference Range Comments CALCIUM IONIZED (test code=SHANNAN) 1.18 mmol/L 1.12-1.32 BASIC METABOLIC [id number] 03:49:00* Test Item Value Reference Range Comments SODIUM (test code=NA) 142 mmol/L 136-145 POTASSIUM (test code=K) 4.1 mmol/L 3.5-5.1 CHLORIDE (test code=CL) 108.0 mmol/L 98-107 CARBON DIOXIDE (test code=CO2) mmol/L 21-32 ANION GAP (test code=GAP) 10-20 GLUCOSE (test code=GLU) mg/dL 74-106 BLOOD UREA NITROGEN (test code=BUN) mg/dL 7-18 GLOMERULAR FILTRATION RATE (test code=GFR) mL/min >=60 CREATININE (test code=CREAT) mg/dL 0.7-1.3 BUN/CREATININE RATIO (test code=BUN/CREA) 10-20 CALCIUM (test code=CA) 8.1 mg/dL 8.5-10.1 [id number] 03:49:00* Test Item Value Reference Range Comments PHOSPHORUS (test code=PHOS) mg/dL 2.5-4.9 [id number] 03:49:00* Test Item Value Reference Range Comments MAGNESIUM (test code=MAG) mg/dL 1.8-2.4 CALCIUM [id number] 03:49:00* Test Item Value Reference Range Comments CALCIUM IONIZED (test code=SHANNAN) 1.18 mmol/L 1.12-1.32 BASIC METABOLIC [id number] 03:39:00* Test Item Value Reference Range Comments SODIUM (test code=NA) mmol/L 136-145 POTASSIUM (test code=K) mmol/L 3.5-5.1 CHLORIDE (test code=CL) mmol/L 98-107 CARBON DIOXIDE (test code=CO2) mmol/L 21-32 ANION GAP (test code=GAP) 10-20 GLUCOSE (test code=GLU) mg/dL 74-106 BLOOD UREA NITROGEN (test code=BUN) mg/dL 7-18 GLOMERULAR FILTRATION RATE (test code=GFR) mL/min >=60 CREATININE (test code=CREAT) mg/dL 0.7-1.3 BUN/CREATININE RATIO (test code=BUN/CREA) 10-20 CALCIUM (test code=CA) mg/dL 8.5-10.1 [id number] 03:39:00* Test Item Value Reference Range Comments PHOSPHORUS (test code=PHOS) mg/dL 2.5-4.9 [id number] 03:39:00* Test Item Value Reference Range Comments MAGNESIUM (test code=MAG) mg/dL 1.8-2.4 CALCIUM [id number] 03:39:00* Test Item Value Reference Range Comments CALCIUM IONIZED (test code=SHANNAN) 1.18 mmol/L 1.12-1.32 CBC W/AUTO [id number] 03:35:00* Test Item Value Reference Range Comments WHITE BLOOD CELL (test code=WBC) 14.2 K/mm3 4.5-12.5 RED BLOOD CELL (test code=RBC) 5.29 mill/mm3 4.0-5.8 HEMOGLOBIN (test code=HGB) 14.6 gram/dL 13.0-17.5 HEMATOCRIT (test code=HCT) 45.8 % 42.0-52.0 MEAN CELL VOLUME (test code=MCV) 86.6 fL 80-98 MEAN CELL HGB (test code=MCH) 27.6 picogram 27.0-33.0 MEAN CELL HGB CONCETRATION (test code=MCHC) 31.9 gram/dL 33.0-36.0 RED CELL DISTRIBUTION WIDTH (test code=RDW) 13.5 % 11.6-16.2 RED CELL DISTRIBUTION WIDTH SD (test code=RDW-SD) 42.9 fL 37.0-51.0 PLATELET COUNT (test code=PLT) 244 K/mm3 150-450 MEAN PLATELET VOLUME (test code=MPV) 12.4 fL 6.7-11.0 NEUTROPHIL % (test code=NT%) 80.0 % 39.0-69.0 IMMATURE GRANULOCYTE % (test code=IG%) 2.5 % 0.0-5.0 LYMPHOCYTE % (test code=LY%) 10.0 % 25.0-55.0 MONOCYTE % (test code=MO%) 4.9 % 0.0-10.0 EOSINOPHIL % (test code=EO%) 2.2 % 0.0-5.0 BASOPHIL % (test code=BA%) 0.4 % 0.0-1.0 NUCLEATED RBC % (test code=NRBC%) 0.0 % 0-0 NEUTROPHIL # (test code=NT#) 11.38 K/mm3 1.8-7.7 IMMATURE GRANULOCYTE # (test code=IG#) 0.36 x10 3/uL 0-0.03 LYMPHOCYTE # (test code=LY#) 1.43 K/mm3 1.0-5.0 MONOCYTE # (test code=MO#) 0.70 K/mm3 0-0.8 EOSINOPHIL # (test code=EO#) 0.31 K/mm3 0.0-0.5 BASOPHIL # (test code=BA#) 0.06 K/mm3 0.0-0.2 NUCLEATED RBC # (test code=NRBC#) 0.00 K/mm3 0.0-0.1 MANUAL DIFF REQUIRED (test code=MDIFF) NO CBC W/AUTO [id number] 03:34:00* Test Item Value Reference Range Comments WHITE BLOOD CELL (test code=WBC) K/mm3 4.5-12.5 RED BLOOD CELL (test code=RBC) mill/mm3 4.0-5.8 HEMOGLOBIN (test code=HGB) 14.6 gram/dL 13.0-17.5 HEMATOCRIT (test code=HCT) 45.8 % 42.0-52.0 MEAN CELL VOLUME (test code=MCV) fL 80-98 MEAN CELL HGB (test code=MCH) picogram 27.0-33.0 MEAN CELL HGB CONCETRATION (test code=MCHC) gram/dL 33.0-36.0 RED CELL DISTRIBUTION WIDTH (test code=RDW) % 11.6-16.2 RED CELL DISTRIBUTION WIDTH SD (test code=RDW-SD) fL 37.0-51.0 PLATELET COUNT (test code=PLT) K/mm3 150-450 MEAN PLATELET VOLUME (test code=MPV) fL 6.7-11.0 NEUTROPHIL % (test code=NT%) % 39.0-69.0 IMMATURE GRANULOCYTE % (test code=IG%) % 0.0-5.0 LYMPHOCYTE % (test code=LY%) % 25.0-55.0 MONOCYTE % (test code=MO%) % 0.0-10.0 EOSINOPHIL % (test code=EO%) % 0.0-5.0 BASOPHIL % (test code=BA%) % 0.0-1.0 NEUTROPHIL # (test code=NT#) K/mm3 1.8-7.7 LYMPHOCYTE # (test code=LY#) K/mm3 1.0-5.0 MONOCYTE # (test code=MO#) K/mm3 0-0.8 EOSINOPHIL # (test code=EO#) K/mm3 0.0-0.5 BASOPHIL # (test code=BA#) K/mm3 0.0-0.2 THROMBOPLASTIN TIME [id number] 19:11:00* Test Item Value Reference Range Comments THROMBOPLASTIN TIME PARTIAL (test code=PTT) 71.7 seconds 25.0-36.5 IS PATIENT ON ANTICOAGULANTS? YLIST ANTICOAGULANTS HEPARINTHROMBOPLASTIN TIME [id number] 12:46:00* Test Item Value Reference Range Comments THROMBOPLASTIN TIME PARTIAL (test code=PTT) 112.3 seconds 25.0-36.5 Results called to [id number] by SHARON 08/31/19 1246Critical results verified and read back by Nurse? Y IS PATIENT ON ANTICOAGULANTS? YLIST ANTICOAGULANTS HEPARINPROTHROMBIN TIME 2019-08-31 11:01:00* Test Item Value Reference Range Comments PROTHROMBIN TIME PATIENT (test code=PTP) 15.2 seconds 9.0-14.0 INTERNATIONAL NORMAL RATIO (test code=INR) 1.3 0.8-1.2 The therapeutic range for oral anticoagulant therapy formost indications is an international normalized ratio (INR)of between 2.0 and 3.0. The recommended therapeutic INRrange for various clinical situations is listed below: Clinical Situation INR range Pulmonary e mbolism treatment (2.0-3.0)Venous thrombosis treatmentVenous thrombosis prophylaxis (high risk surgery)Prevention of systemic embolism from: Acute myocardial infarction Valvular heart disease Atrial fibrillation Mechanical prosthetic heart valves (2.5-3.5) IS PATIENT ON ANTICOAGULANTS? YLIST ANTICOAGULANTS HEPARIN- XR CHEST 1 V 2019-08-31 06:33:00 FAX: Hung Laura [place]: [address]: ADM FAX: Davie Allen [phone] FAX: Atul Maynard MD [phone] Name: MULUGETA DOTSON [facility] : 1945 Age/S: 73/M [address] [facility] Unit #: [id number] Loc: Meng7 [place] [address] Phys: Hung Laura Acct: [id number] Dis Date: Status: ADM IN ONE #: [phone] Exam Date: 08/31/2019526 FAX #: [phone] Reason: respiratory failure EXAMS: CPT CODE: [id number] XR CHEST 1 V [id number] CLINICAL HISTO RY: respiratory failure TECHNIQUE: AP chest x-ray CO MPARISON: Previous day. IMPRESSION: No signifi cant interval change. Left retrocardiac atelectasis and possible small p leural effusion. Mild right basilar subsegmental atelectasis. Cardiomega ly. 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 NG tub e. LOCATION: LP at 0633 Reported and signed by: Lilian Cruz D.O. CC: Hung Laura; Davie Schultz; Atul Maynard MD Technologist: RENZO Earl Trnscrd Date/Time/By: 08/31/2019 (0641) : By: [email or web address] Orig Print D/T: S: 08/31/2019 (9577) PAGE 1 Signed Report BASIC METABOLIC [id number] 03:58:00* Test Item Value Reference Range Comments SODIUM (test code=NA) 147 mmol/L 136-145 RESULT VERIFIED BY REPEAT ANALYSIS POTASSIUM (test code=K) 4.4 mmol/L 3.5-5.1 CHLORIDE (test code=CL) 112.0 mmol/L 98-107 CARBON DIOXIDE (test code=CO2) 31.0 mmol/L 21-32 ANION GAP (test code=GAP) 8.4 10-20 GLUCOSE (test code=GLU) 134 mg/dL 74-106 BLOOD UREA NITROGEN (test code=BUN) 45 mg/dL 7-18 GLOMERULAR FILTRATION RATE (test code=GFR) 54 mL/min >=60 Estimated GFR by using Modified MDRD formula.Chronic kidney disease is defined as either kidney damageor GFR <60 mL/min/1.73 m2 for >3 months. CREATININE (test code=CREAT) 1.30 mg/dL 0.7-1.3 BUN/CREATININE RATIO (test code=BUN/CREA) 34.6 10-20 CALCIUM (test code=CA) 8.6 mg/dL 8.5-10.1 [id number] 03:58:00* Test Item Value Reference Range Comments PHOSPHORUS (test code=PHOS) 3.3 mg/dL 2.5-4.9 [id number] 03:58:00* Test Item Value Reference Range Comments MAGNESIUM (test code=MAG) 2.7 mg/dL 1.8-2.4 CALCIUM [id number] 03:58:00* Test Item Value Reference Range Comments CALCIUM IONIZED (test code=SHANNAN) 1.13 mmol/L 1.12-1.32 THROMBOPLASTIN TIME [id number] 03:58:00* Test Item Value Reference Range Comments THROMBOPLASTIN TIME PARTIAL (test code=PTT) 150.2 seconds 25.0-36.5 Results called to [id number] by [email or web address] 08/31/19 [id number] results verified and read back by Nurse? Y IS PATIENT ON ANTICOAGULANTS? YLIST ANTICOAGULANTS HEPARINBASIC METABOLIC [id number] 03:56:00* Test Item Value Reference Range Comments SODIUM (test code=NA) mmol/L 136-145 POTASSIUM (test code=K) mmol/L 3.5-5.1 CHLORIDE (test code=CL) mmol/L 98-107 CARBON DIOXIDE (test code=CO2) mmol/L 21-32 ANION GAP (test code=GAP) 10-20 GLUCOSE (test code=GLU) mg/dL 74-106 BLOOD UREA NITROGEN (test code=BUN) mg/dL 7-18 GLOMERULAR FILTRATION RATE (test code=GFR) mL/min >=60 CREATININE (test code=CREAT) mg/dL 0.7-1.3 BUN/CREATININE RATIO (test code=BUN/CREA) 10-20 CALCIUM (test code=CA) mg/dL 8.5-10.1 [id number] 03:56:00* Test Item Value Reference Range Comments PHOSPHORUS (test code=PHOS) mg/dL 2.5-4.9 [id number] 03:56:00* Test Item Value Reference Range Comments MAGNESIUM (test code=MAG) mg/dL 1.8-2.4 CALCIUM [id number] 03:56:00* Test Item Value Reference Range Comments CALCIUM IONIZED (test code=SHANNAN) 1.13 mmol/L 1.12-1.32 CBC W/AUTO [id number] 03:17:00* Test Item Value Reference Range Comments WHITE BLOOD CELL (test code=WBC) 17.0 K/mm3 4.5-12.5 RED BLOOD CELL (test code=RBC) 5.63 mill/mm3 4.0-5.8 HEMOGLOBIN (test code=HGB) 15.5 gram/dL 13.0-17.5 HEMATOCRIT (test code=HCT) 49.3 % 42.0-52.0 MEAN CELL VOLUME (test code=MCV) 87.6 fL 80-98 MEAN CELL HGB (test code=MCH) 27.5 picogram 27.0-33.0 MEAN CELL HGB CONCETRATION (test code=MCHC) 31.4 gram/dL 33.0-36.0 RED CELL DISTRIBUTION WIDTH (test code=RDW) 13.8 % 11.6-16.2 RED CELL DISTRIBUTION WIDTH SD (test code=RDW-SD) 44.1 fL 37.0-51.0 PLATELET COUNT (test code=PLT) 220 K/mm3 150-450 MEAN PLATELET VOLUME (test code=MPV) 12.5 fL 6.7-11.0 NEUTROPHIL % (test code=NT%) 75.3 % 39.0-69.0 IMMATURE GRANULOCYTE % (test code=IG%) 3.7 % 0.0-5.0 LYMPHOCYTE % (test code=LY%) 11.6 % 25.0-55.0 MONOCYTE % (test code=MO%) 7.3 % 0.0-10.0 EOSINOPHIL % (test code=EO%) 1.6 % 0.0-5.0 BASOPHIL % (test code=BA%) 0.5 % 0.0-1.0 NUCLEATED RBC % (test code=NRBC%) 0.0 % 0-0 NEUTROPHIL # (test code=NT#) 12.82 K/mm3 1.8-7.7 IMMATURE GRANULOCYTE # (test code=IG#) 0.63 x10 3/uL 0-0.03 LYMPHOCYTE # (test code=LY#) 1.97 K/mm3 1.0-5.0 MONOCYTE # (test code=MO#) 1.24 K/mm3 0-0.8 EOSINOPHIL # (test code=EO#) 0.27 K/mm3 0.0-0.5 BASOPHIL # (test code=BA#) 0.08 K/mm3 0.0-0.2 NUCLEATED RBC # (test code=NRBC#) 0.00 K/mm3 0.0-0.1 MANUAL DIFF REQUIRED (test code=MDIFF) NO CBC W/AUTO [id number] 03:11:00* Test Item Value Reference Range Comments WHITE BLOOD CELL (test code=WBC) K/mm3 4.5-12.5 RED BLOOD CELL (test code=RBC) mill/mm3 4.0-5.8 HEMOGLOBIN (test code=HGB) 15.5 gram/dL 13.0-17.5 HEMATOCRIT (test code=HCT) 49.3 % 42.0-52.0 MEAN CELL VOLUME (test code=MCV) fL 80-98 MEAN CELL HGB (test code=MCH) picogram 27.0-33.0 MEAN CELL HGB CONCETRATION (test code=MCHC) gram/dL 33.0-36.0 RED CELL DISTRIBUTION WIDTH (test code=RDW) % 11.6-16.2 RED CELL DISTRIBUTION WIDTH SD (test code=RDW-SD) fL 37.0-51.0 PLATELET COUNT (test code=PLT) K/mm3 150-450 MEAN PLATELET VOLUME (test code=MPV) fL 6.7-11.0 NEUTROPHIL % (test code=NT%) % 39.0-69.0 IMMATURE GRANULOCYTE % (test code=IG%) % 0.0-5.0 LYMPHOCYTE % (test code=LY%) % 25.0-55.0 MONOCYTE % (test code=MO%) % 0.0-10.0 EOSINOPHIL % (test code=EO%) % 0.0-5.0 BASOPHIL % (test code=BA%) % 0.0-1.0 NEUTROPHIL # (test code=NT#) K/mm3 1.8-7.7 LYMPHOCYTE # (test code=LY#) K/mm3 1.0-5.0 MONOCYTE # (test code=MO#) K/mm3 0-0.8 EOSINOPHIL # (test code=EO#) K/mm3 0.0-0.5 BASOPHIL # (test code=BA#) K/mm3 0.0-0.2 THROMBOPLASTIN TIME [id number] 18:22:00* Test Item Value Reference Range Comments THROMBOPLASTIN TIME PARTIAL (test code=PTT) 35.0 seconds 25.0-36.5 IS PATIENT ON ANTICOAGULANTS? YLIST ANTICOAGULANTS HEPARINBASIC METABOLIC [id number] 17:04:00* Test Item Value Reference Range Comments SODIUM (test code=NA) 152 mmol/L 136-145 POTASSIUM (test code=K) 3.2 mmol/L 3.5-5.1 CHLORIDE (test code=CL) 119.0 mmol/L 98-107 CARBON DIOXIDE (test code=CO2) 31.0 mmol/L 21-32 ANION GAP (test code=GAP) 5.2 10-20 GLUCOSE (test code=GLU) 128 mg/dL 74-106 BLOOD UREA NITROGEN (test code=BUN) 41 mg/dL 7-18 GLOMERULAR FILTRATION RATE (test code=GFR) 59 mL/min >=60 Estimated GFR by using Modified MDRD formula.Chronic kidney disease is defined as either kidney damageor GFR <60 mL/min/1.73 m2 for >3 months. CREATININE (test code=CREAT) 1.20 mg/dL 0.7-1.3 BUN/CREATININE RATIO (test code=BUN/CREA) 34.2 10-20 CALCIUM (test code=CA) 7.1 mg/dL 8.5-10.1 SAMPLE TO BE COLLECTED BY [id number] 17:04:00* Test Item Value Reference Range Comments PHOSPHORUS (test code=PHOS) 2.2 mg/dL 2.5-4.9 SAMPLE TO BE COLLECTED BY [id number] 17:04:00* Test Item Value Reference Range Comments MAGNESIUM (test code=MAG) 2.3 mg/dL 1.8-2.4 SAMPLE TO BE COLLECTED BY NURSECALCIUM [id number] 17:04:00* Test Item Value Reference Range Comments CALCIUM IONIZED (test code=SHANNAN) 1.16 mmol/L 1.12-1.32 SAMPLE TO BE COLLECTED BY NURSEBASIC METABOLIC [id number] 16:57:00* Test Item Value Reference Range Comments SODIUM (test code=NA) 152 mmol/L 136-145 POTASSIUM (test code=K) 3.2 mmol/L 3.5-5.1 CHLORIDE (test code=CL) 119.0 mmol/L 98-107 CARBON DIOXIDE (test code=CO2) mmol/L 21-32 ANION GAP (test code=GAP) 10-20 GLUCOSE (test code=GLU) mg/dL 74-106 BLOOD UREA NITROGEN (test code=BUN) mg/dL 7-18 GLOMERULAR FILTRATION RATE (test code=GFR) mL/min >=60 CREATININE (test code=CREAT) mg/dL 0.7-1.3 BUN/CREATININE RATIO (test code=BUN/CREA) 10-20 CALCIUM (test code=CA) mg/dL 8.5-10.1 SAMPLE TO BE COLLECTED BY [id number] 16:57:00* Test Item Value Reference Range Comments PHOSPHORUS (test code=PHOS) mg/dL 2.5-4.9 SAMPLE TO BE COLLECTED BY [id number] 16:57:00* Test Item Value Reference Range Comments MAGNESIUM (test code=MAG) mg/dL 1.8-2.4 SAMPLE TO BE COLLECTED BY NURSECALCIUM [id number] 16:57:00* Test Item Value Reference Range Comments CALCIUM IONIZED (test code=SHANNAN) 1.16 mmol/L 1.12-1.32 SAMPLE TO BE COLLECTED BY NURSEBASIC METABOLIC [id number] 16:54:00* Test Item Value Reference Range Comments SODIUM (test code=NA) mmol/L 136-145 POTASSIUM (test code=K) mmol/L 3.5-5.1 CHLORIDE (test code=CL) mmol/L 98-107 CARBON DIOXIDE (test code=CO2) mmol/L 21-32 ANION GAP (test code=GAP) 10-20 GLUCOSE (test code=GLU) mg/dL 74-106 BLOOD UREA NITROGEN (test code=BUN) mg/dL 7-18 GLOMERULAR FILTRATION RATE (test code=GFR) mL/min >=60 CREATININE (test code=CREAT) mg/dL 0.7-1.3 BUN/CREATININE RATIO (test code=BUN/CREA) 10-20 CALCIUM (test code=CA) mg/dL 8.5-10.1 SAMPLE TO BE COLLECTED BY [id number] 16:54:00* Test Item Value Reference Range Comments PHOSPHORUS (test code=PHOS) mg/dL 2.5-4.9 SAMPLE TO BE COLLECTED BY [id number] 16:54:00* Test Item Value Reference Range Comments MAGNESIUM (test code=MAG) mg/dL 1.8-2.4 SAMPLE TO BE COLLECTED BY NURSECALCIUM [id number] 16:54:00* Test Item Value Reference Range Comments CALCIUM IONIZED (test code=SHANNAN) 1.16 mmol/L 1.12-1.32 SAMPLE TO BE COLLECTED BY NURSETHROMBOPLASTIN TIME [id number] 12:15:00* Test Item Value Reference Range Comments THROMBOPLASTIN TIME PARTIAL (test code=PTT) 27.7 seconds 25.0-36.5 IS PATIENT ON ANTICOAGULANTS? [id number] 12:03:00* Test Item Value Reference Range Comments HEMATOCRIT (test code=HCT) 49.1 % 42.0-52.0 PLATELET [id number] 12:03:00* Test Item Value Reference Range Comments PLATELET COUNT (test code=PLT) 232 K/mm3 150-450 [id number] 12:01:00* Test Item Value Reference Range Comments HEMATOCRIT (test code=HCT) 49.1 % 42.0-52.0 PLATELET [id number] 12:01:00* Test Item Value Reference Range Comments PLATELET COUNT (test code=PLT) K/mm3 150-450 - XR CHEST 1 [id number] 06:54:00 FAX: Hung Laura [place]: B St: ADM FAX: Davie Allen [phone] FAX: Atul Maynard MD [phone] Name: MULUGETA DOTSON [facility] : 1945 Age/S: 73/M [address] [facility] Unit #: [id number] Loc: V.7 [place] [address] Phys: Hung Laura Acct: [id number] Dis Date: Status: ADM IN ONE #: [phone] Exam Date: 08/30/2019 0233 FAX #: [phone] Reason: respiratory failure EXAMS: CPT CODE: [id number] XR CHEST 1 V 72536 HISTORY: Strok e. COMPARISON: None available. Location: TH. NG tube extends below the diaphragm in good position. Small left e ffusion is improved from previous examination. Improved left basal subseg mental atelectasis. No infiltrates or congestion. Right lung is clear. Cardiomegaly. IMPRESSION: Improving small left effusion and subsegmental atelectasis on the left. No infiltrates or c ongestion. at 0654 Reported and signed by: Kendall Santos M.D. CC: Hung Laura; Davie Schultz; Atul Maynard MD Brad hnologist: Marv Cervantes RT(R); JOSE GLORIA RT(R) Trnscrd Date/T julieth/By: 08/30/2019 (0654) : By: [email or web address] Orig Print D/T: S: 0 (0633) PAGE 1 Signed Report BASIC METABOLIC [id number] 04:37:00* Test Item Value Reference Range Comments SODIUM (test code=NA) 149 mmol/L 136-145 POTASSIUM (test code=K) 4.0 mmol/L 3.5-5.1 CHLORIDE (test code=CL) 109.0 mmol/L 98-107 CARBON DIOXIDE (test code=CO2) 37.0 mmol/L 21-32 ANION GAP (test code=GAP) 7.0 10-20 GLUCOSE (test code=GLU) 164 mg/dL 74-106 BLOOD UREA NITROGEN (test code=BUN) 49 mg/dL 7-18 GLOMERULAR FILTRATION RATE (test code=GFR) 39 mL/min >=60 Estimated GFR by using Modified MDRD formula.Chronic kidney disease is defined as either kidney damageor GFR <60 mL/min/1.73 m2 for >3 months. CREATININE (test code=CREAT) 1.70 mg/dL 0.7-1.3 BUN/CREATININE RATIO (test code=BUN/CREA) 28.8 10-20 CALCIUM (test code=CA) 8.8 mg/dL 8.5-10.1 [id number] 04:37:00* Test Item Value Reference Range Comments PHOSPHORUS (test code=PHOS) 2.8 mg/dL 2.5-4.9 [id number] 04:37:00* Test Item Value Reference Range Comments MAGNESIUM (test code=MAG) 2.9 mg/dL 1.8-2.4 CALCIUM [id number] 04:37:00* Test Item Value Reference Range Comments CALCIUM IONIZED (test code=SHANNAN) 1.19 mmol/L 1.12-1.32 CBC W/AUTO [id number] 04:28:00* Test Item Value Reference Range Comments WHITE BLOOD CELL (test code=WBC) 17.9 K/mm3 4.5-12.5 RED BLOOD CELL (test code=RBC) 5.69 mill/mm3 4.0-5.8 HEMOGLOBIN (test code=HGB) 15.7 gram/dL 13.0-17.5 HEMATOCRIT (test code=HCT) 50.1 % 42.0-52.0 MEAN CELL VOLUME (test code=MCV) 88.0 fL 80-98 MEAN CELL HGB (test code=MCH) 27.6 picogram 27.0-33.0 MEAN CELL HGB CONCETRATION (test code=MCHC) 31.3 gram/dL 33.0-36.0 RED CELL DISTRIBUTION WIDTH (test code=RDW) 13.9 % 11.6-16.2 RED CELL DISTRIBUTION WIDTH SD (test code=RDW-SD) 44.3 fL 37.0-51.0 PLATELET COUNT (test code=PLT) 213 K/mm3 150-450 MEAN PLATELET VOLUME (test code=MPV) 11.9 fL 6.7-11.0 NEUTROPHIL % (test code=NT%) 80.7 % 39.0-69.0 IMMATURE GRANULOCYTE % (test code=IG%) 2.0 % 0.0-5.0 LYMPHOCYTE % (test code=LY%) 8.5 % 25.0-55.0 MONOCYTE % (test code=MO%) 7.6 % 0.0-10.0 EOSINOPHIL % (test code=EO%) 0.8 % 0.0-5.0 BASOPHIL % (test code=BA%) 0.4 % 0.0-1.0 NUCLEATED RBC % (test code=NRBC%) 0.0 % 0-0 NEUTROPHIL # (test code=NT#) 14.40 K/mm3 1.8-7.7 IMMATURE GRANULOCYTE # (test code=IG#) 0.35 x10 3/uL 0-0.03 LYMPHOCYTE # (test code=LY#) 1.51 K/mm3 1.0-5.0 MONOCYTE # (test code=MO#) 1.36 K/mm3 0-0.8 EOSINOPHIL # (test code=EO#) 0.15 K/mm3 0.0-0.5 BASOPHIL # (test code=BA#) 0.08 K/mm3 0.0-0.2 NUCLEATED RBC # (test code=NRBC#) 0.00 K/mm3 0.0-0.1 MANUAL DIFF REQUIRED (test code=MDIFF) NO BASIC METABOLIC [id number] 04:25:00* Test Item Value Reference Range Comments SODIUM (test code=NA) 149 mmol/L 136-145 POTASSIUM (test code=K) 4.0 mmol/L 3.5-5.1 CHLORIDE (test code=CL) 109.0 mmol/L 98-107 CARBON DIOXIDE (test code=CO2) mmol/L 21-32 ANION GAP (test code=GAP) 10-20 GLUCOSE (test code=GLU) mg/dL 74-106 BLOOD UREA NITROGEN (test code=BUN) mg/dL 7-18 GLOMERULAR FILTRATION RATE (test code=GFR) mL/min >=60 CREATININE (test code=CREAT) mg/dL 0.7-1.3 BUN/CREATININE RATIO (test code=BUN/CREA) 10-20 CALCIUM (test code=CA) 8.8 mg/dL 8.5-10.1 [id number] 04:25:00* Test Item Value Reference Range Comments PHOSPHORUS (test code=PHOS) mg/dL 2.5-4.9 [id number] 04:25:00* Test Item Value Reference Range Comments MAGNESIUM (test code=MAG) mg/dL 1.8-2.4 CALCIUM [id number] 04:25:00* Test Item Value Reference Range Comments CALCIUM IONIZED (test code=SHANNAN) 1.19 mmol/L 1.12-1.32 BASIC METABOLIC [id number] 04:22:00* Test Item Value Reference Range Comments SODIUM (test code=NA) 149 mmol/L 136-145 POTASSIUM (test code=K) 4.0 mmol/L 3.5-5.1 CHLORIDE (test code=CL) 109.0 mmol/L 98-107 CARBON DIOXIDE (test code=CO2) mmol/L 21-32 ANION GAP (test code=GAP) 10-20 GLUCOSE (test code=GLU) mg/dL 74-106 BLOOD UREA NITROGEN (test code=BUN) mg/dL 7-18 GLOMERULAR FILTRATION RATE (test code=GFR) mL/min >=60 CREATININE (test code=CREAT) mg/dL 0.7-1.3 BUN/CREATININE RATIO (test code=BUN/CREA) 10-20 CALCIUM (test code=CA) 8.8 mg/dL 8.5-10.1 [id number] 04:22:00* Test Item Value Reference Range Comments PHOSPHORUS (test code=PHOS) mg/dL 2.5-4.9 [id number] 04:22:00* Test Item Value Reference Range Comments MAGNESIUM (test code=MAG) mg/dL 1.8-2.4 CALCIUM [id number] 04:22:00* Test Item Value Reference Range Comments CALCIUM IONIZED (test code=SHANNAN) mmol/L 1.12-1.32 CBC W/AUTO [id number] 04:17:00* Test Item Value Reference Range Comments WHITE BLOOD CELL (test code=WBC) K/mm3 4.5-12.5 RED BLOOD CELL (test code=RBC) mill/mm3 4.0-5.8 HEMOGLOBIN (test code=HGB) 15.7 gram/dL 13.0-17.5 HEMATOCRIT (test code=HCT) 50.1 % 42.0-52.0 MEAN CELL VOLUME (test code=MCV) fL 80-98 MEAN CELL HGB (test code=MCH) picogram 27.0-33.0 MEAN CELL HGB CONCETRATION (test code=MCHC) gram/dL 33.0-36.0 RED CELL DISTRIBUTION WIDTH (test code=RDW) % 11.6-16.2 RED CELL DISTRIBUTION WIDTH SD (test code=RDW-SD) fL 37.0-51.0 PLATELET COUNT (test code=PLT) K/mm3 150-450 MEAN PLATELET VOLUME (test code=MPV) fL 6.7-11.0 NEUTROPHIL % (test code=NT%) % 39.0-69.0 IMMATURE GRANULOCYTE % (test code=IG%) % 0.0-5.0 LYMPHOCYTE % (test code=LY%) % 25.0-55.0 MONOCYTE % (test code=MO%) % 0.0-10.0 EOSINOPHIL % (test code=EO%) % 0.0-5.0 BASOPHIL % (test code=BA%) % 0.0-1.0 NEUTROPHIL # (test code=NT#) K/mm3 1.8-7.7 LYMPHOCYTE # (test code=LY#) K/mm3 1.0-5.0 MONOCYTE # (test code=MO#) K/mm3 0-0.8 EOSINOPHIL # (test code=EO#) K/mm3 0.0-0.5 BASOPHIL # (test code=BA#) K/mm3 0.0-0.2 ARTERIAL BLOOD [id number] 20:55:00* Test Item Value Reference Range Comments ARTERIAL BLOOD GAS PH (test code=PHA) 7.55 7.35-7.45 Results called to and read back by [facility] 20:50 - 08/29/2019; by YULIANA ARTERIAL BLOOD GAS PCO2 (test code=PCO2A) 35.8 mm Hg 35-45 ARTERIAL BLOOD GAS PO2 (test code=PO2A) 54.6 mmHg 80-100 BICARBONATE TOTAL HCO3 (test code=HCO3) 30.6 mmol/L 23.0-27.0 BASE EXCESS (test code=MEHUL) 8.0 mmol/L -3.0-5.0 Results called to and read back by [facility] 20:50 - 08/29/2019; by YULIANA ABG O2 SATURATION (test code=SATA) 90.4 % 90.0-98.0 ABG TYPE (test code=TYPEA) Arterial FIO2 (test code=FIO2A) 76.0 ABG TEMPERATURE (test code=TEMPA) 37.0 Celsius ABG SITE (test code=SITEA) Lt RADIAL ARTERY MODIFIED ALLENS (test code=MODALL) Yes CHECK PERFORMED HEMATOCRIT (test code=HCT/ABG) 49 % 42-52 TOTAL HGB (test code=THB) 16.8 gram/dL 13.0-17.5 HGB O2 SAT (test code=HBOSAT) 89.4 % 94.00-98.00 CARBOXYHEMOGLOBIN (test code=HOHGBT) 0.8 %totalHg 0.5-1.5 METHEMOGLOBIN (test code=METHGB) 0.3 % 0.0-1.50 O2 CONTENT (test code=O2CT) 21.0 % vol 18.0-22.0 A-A GRADIENT (test code=AAGRADE) 449.3 mm Hg - XR CHEST 1 [id number] 07:36:00 FAX: Hung Laura [place]: B St: ADM FAX: Davie Allen [phone] FAX: Atul Maynard MD [phone] Name: MULUGETA DOTSON [facility] : 1945 Age/S: 73/M [address] Unit #: [id number] Loc: V.S07 [place]IM[place] [address] Phys: Hung Laura Acct: [id number] Dis Date: Status: ADM IN ONE #: [phone] Exam Date: 08/29/2019 0057 FAX #: [phone] Reason: respiratory failure EXAMS: CPT CODE: [id number] XR CHEST 1 V 70910 REASON FOR EXAM: respiratory failure Exam Order Date: 08/29/2019 4:00 AM Ordering Sushma: AUSTIN Kelley PROCEDURE: - XR CH EST 1 V COMPARISON: Chest x-ray the previous morning FINDINGS: There are bibasilar opacities which may represent any combina tion of atelectasis and consolidation. Additionally a small left-sided ple ural effusion cannot be excluded. These findings are unchanged from the prior exam. Cardiomediastinal silhouette is normal in size for technique. The mediastinal contours are within normal limits. Musculoskeletal structures are within normal limits. Enteric willson ction tube terminates in the stomach. IMPRESSION: No significant change from prior exam. Location: [facility] at 0736 Reported and signed by: Celso Coker MD CC: Hung Laura; Davie Schultz; Atul Maynard MD Technologist: Marv Cervantes RT(R); JOSE DANIEL RT(R) [facility] Date/Time/By: 08/29/2019 (0736) : By: Yasemin R31 Orig Print D/T: S: 08/29/2019 (0798) PAGE 1 Signed Report BASIC METABOLIC [id number] 03:43:00* Test Item Value Reference Range Comments SODIUM (test code=NA) 148 mmol/L 136-145 POTASSIUM (test code=K) 3.9 mmol/L 3.5-5.1 CHLORIDE (test code=CL) 108.0 mmol/L 98-107 CARBON DIOXIDE (test code=CO2) 34.0 mmol/L 21-32 ANION GAP (test code=GAP) 9.9 10-20 GLUCOSE (test code=GLU) 131 mg/dL 74-106 BLOOD UREA NITROGEN (test code=BUN) 54 mg/dL 7-18 GLOMERULAR FILTRATION RATE (test code=GFR) 37 mL/min >=60 Estimated GFR by using Modified MDRD formula.Chronic kidney disease is defined as either kidney damageor GFR <60 mL/min/1.73 m2 for >3 months. CREATININE (test code=CREAT) 1.80 mg/dL 0.7-1.3 BUN/CREATININE RATIO (test code=BUN/CREA) 30.0 10-20 CALCIUM (test code=CA) 8.8 mg/dL 8.5-10.1 [id number] 03:43:00* Test Item Value Reference Range Comments PHOSPHORUS (test code=PHOS) 4.0 mg/dL 2.5-4.9 [id number] 03:43:00* Test Item Value Reference Range Comments MAGNESIUM (test code=MAG) 2.8 mg/dL 1.8-2.4 CALCIUM [id number] 03:43:00* Test Item Value Reference Range Comments CALCIUM IONIZED (test code=SHANNAN) 1.19 mmol/L 1.12-1.32 BASIC METABOLIC [id number] 03:37:00* Test Item Value Reference Range Comments SODIUM (test code=NA) 148 mmol/L 136-145 POTASSIUM (test code=K) 3.9 mmol/L 3.5-5.1 CHLORIDE (test code=CL) 108.0 mmol/L 98-107 CARBON DIOXIDE (test code=CO2) mmol/L 21-32 ANION GAP (test code=GAP) 10-20 GLUCOSE (test code=GLU) mg/dL 74-106 BLOOD UREA NITROGEN (test code=BUN) mg/dL 7-18 GLOMERULAR FILTRATION RATE (test code=GFR) mL/min >=60 CREATININE (test code=CREAT) mg/dL 0.7-1.3 BUN/CREATININE RATIO (test code=BUN/CREA) 10-20 CALCIUM (test code=CA) mg/dL 8.5-10.1 [id number] 03:37:00* Test Item Value Reference Range Comments PHOSPHORUS (test code=PHOS) mg/dL 2.5-4.9 [id number] 03:37:00* Test Item Value Reference Range Comments MAGNESIUM (test code=MAG) mg/dL 1.8-2.4 CALCIUM [id number] 03:37:00* Test Item Value Reference Range Comments CALCIUM IONIZED (test code=SHANNAN) 1.19 mmol/L 1.12-1.32 BASIC METABOLIC [id number] 03:36:00* Test Item Value Reference Range Comments SODIUM (test code=NA) 148 mmol/L 136-145 POTASSIUM (test code=K) 3.9 mmol/L 3.5-5.1 CHLORIDE (test code=CL) 108.0 mmol/L 98-107 CARBON DIOXIDE (test code=CO2) mmol/L 21-32 ANION GAP (test code=GAP) 10-20 GLUCOSE (test code=GLU) mg/dL 74-106 BLOOD UREA NITROGEN (test code=BUN) mg/dL 7-18 GLOMERULAR FILTRATION RATE (test code=GFR) mL/min >=60 CREATININE (test code=CREAT) mg/dL 0.7-1.3 BUN/CREATININE RATIO (test code=BUN/CREA) 10-20 CALCIUM (test code=CA) mg/dL 8.5-10.1 [id number] 03:36:00* Test Item Value Reference Range Comments PHOSPHORUS (test code=PHOS) mg/dL 2.5-4.9 [id number] 03:36:00* Test Item Value Reference Range Comments MAGNESIUM (test code=MAG) mg/dL 1.8-2.4 CALCIUM [id number] 03:36:00* Test Item Value Reference Range Comments CALCIUM IONIZED (test code=SHANNAN) mmol/L 1.12-1.32 CBC W/AUTO [id number] 03:18:00* Test Item Value Reference Range Comments WHITE BLOOD CELL (test code=WBC) 19.3 K/mm3 4.5-12.5 RED BLOOD CELL (test code=RBC) 5.94 mill/mm3 4.0-5.8 HEMOGLOBIN (test code=HGB) 16.2 gram/dL 13.0-17.5 HEMATOCRIT (test code=HCT) 52.1 % 42.0-52.0 MEAN CELL VOLUME (test code=MCV) 87.7 fL 80-98 MEAN CELL HGB (test code=MCH) 27.3 picogram 27.0-33.0 MEAN CELL HGB CONCETRATION (test code=MCHC) 31.1 gram/dL 33.0-36.0 RED CELL DISTRIBUTION WIDTH (test code=RDW) 14.6 % 11.6-16.2 RED CELL DISTRIBUTION WIDTH SD (test code=RDW-SD) 44.8 fL 37.0-51.0 PLATELET COUNT (test code=PLT) 212 K/mm3 150-450 MEAN PLATELET VOLUME (test code=MPV) 11.5 fL 6.7-11.0 NEUTROPHIL % (test code=NT%) 82.3 % 39.0-69.0 IMMATURE GRANULOCYTE % (test code=IG%) 1.6 % 0.0-5.0 LYMPHOCYTE % (test code=LY%) 6.4 % 25.0-55.0 MONOCYTE % (test code=MO%) 8.7 % 0.0-10.0 EOSINOPHIL % (test code=EO%) 0.5 % 0.0-5.0 BASOPHIL % (test code=BA%) 0.5 % 0.0-1.0 NUCLEATED RBC % (test code=NRBC%) 0.0 % 0-0 NEUTROPHIL # (test code=NT#) 15.87 K/mm3 1.8-7.7 IMMATURE GRANULOCYTE # (test code=IG#) 0.31 x10 3/uL 0-0.03 LYMPHOCYTE # (test code=LY#) 1.23 K/mm3 1.0-5.0 MONOCYTE # (test code=MO#) 1.67 K/mm3 0-0.8 EOSINOPHIL # (test code=EO#) 0.09 K/mm3 0.0-0.5 BASOPHIL # (test code=BA#) 0.09 K/mm3 0.0-0.2 NUCLEATED RBC # (test code=NRBC#) 0.00 K/mm3 0.0-0.1 MANUAL DIFF REQUIRED (test code=MDIFF) NO - XR ABDOMEN AP 1 [id number] 10:43:00 FAX: Davie Allen [phone] [place]: St: ADM FAX: Atul Maynard MD [phone] FAX: Smitha Cruz MD [phone] Name: MULUGETA DOTSON [facility] : 1945 Age/S: 73/M [address] [facility] Unit #: [id number] Loc: [address] [address] Phys: Smitha Cruz MD Acct: [id number] Dis Date: Status: ADM IN [facility] #: [phone] Exam Date: 08/28/2019 0948 FAX #: [phone] Reason: constipation EXAMS: CPT CODE: [id number] XR ABDOMEN AP 1 V 09295 HISTORY: cons tipation TECHNIQUE: AP abdomen x-ray COMPARISON: N one FINDINGS: Nonobstructive bowel gas pattern. No signif icant stool burden. Enteric suction tube terminates in the stomach. No intra-abdominal mass effect. No abnormal calcifications are observed. Stent graft are present in the iliac arteries. Mild degenerative changes are present in the spine. Visualized thorax is within normal limits. IMPRESSION: No radiographic evidence of acute intra-abdominal process. L ocation: [facility] a t 1043 Reported and signed by: Celso Coker MD CC: Davie Schultz; Atul Maynard MD; Smitha Cruz MD Technologist: RENZO PRYOR JR Trnscrd Date/Time/By: 2019 (4067) : By: [email or web address] Orig Print D/T: S: 08/28/2019 (4832) PAGE 1 Signed Report - XR CHEST 1 [id number] 06:24:00 FAX: Hung Laura [place]: St: ADM FAX: Davie Allen [phone] FAX: Atul Maynard MD [phone] Name: MULUGETA DOTSON [facility] : 1945 Age/S: 73/M [address] [facility] Unit #: [id number] Loc: [address] [place] [address] Phys: Hung Laura Acct: [id number] Dis Date: Status: ADM IN ONE #: [phone] Exam Date: 08/28/2019527 FAX #: [phone] Reason: respiratory failure EXAMS: CPT CODE: [id number] XR CHEST 1 V 45830 CLINICAL HISTO RY: respiratory failure TECHNIQUE: AP chest x-ray CO MPARISON: Previous day. IMPRESSION: Increasing left basilar atelectasis and possible small pleural effusion. Mild right basilar subsegmental atelectasis. Cardiomegaly. 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 NG tube. LOCATION: LP at 0624 Reported and signed by: Lilian Cruz D.O. CC: Hung Laura; Davie Schultz; Atul Maynard MD Technologist: RENZO PRYOR JR; Parisa Earl Trnwyrd Date/Time/By: 08/28/2019 (0624) : By: [email or web address] Orig Print D/T: S: 08/28/2019 (9987) PAGE 1 Signed Report BASIC METABOLIC [id number] 03:24:00* Test Item Value Reference Range Comments SODIUM (test code=NA) 146 mmol/L 136-145 POTASSIUM (test code=K) 3.8 mmol/L 3.5-5.1 CHLORIDE (test code=CL) 109.0 mmol/L 98-107 CARBON DIOXIDE (test code=CO2) 33.0 mmol/L 21-32 ANION GAP (test code=GAP) 7.8 10-20 GLUCOSE (test code=GLU) 122 mg/dL 74-106 BLOOD UREA NITROGEN (test code=BUN) 57 mg/dL 7-18 GLOMERULAR FILTRATION RATE (test code=GFR) 42 mL/min >=60 Estimated GFR by using Modified MDRD formula.Chronic kidney disease is defined as either kidney damageor GFR <60 mL/min/1.73 m2 for >3 months. CREATININE (test code=CREAT) 1.60 mg/dL 0.7-1.3 BUN/CREATININE RATIO (test code=BUN/CREA) 35.6 10-20 CALCIUM (test code=CA) 8.9 mg/dL 8.5-10.1 [id number] 03:24:00* Test Item Value Reference Range Comments PHOSPHORUS (test code=PHOS) 4.4 mg/dL 2.5-4.9 [id number] 03:24:00* Test Item Value Reference Range Comments MAGNESIUM (test code=MAG) 2.8 mg/dL 1.8-2.4 CALCIUM [id number] 03:24:00* Test Item Value Reference Range Comments CALCIUM IONIZED (test code=SHANNAN) 1.21 mmol/L 1.12-1.32 BASIC METABOLIC [id number] 03:19:00* Test Item Value Reference Range Comments SODIUM (test code=NA) 146 mmol/L 136-145 POTASSIUM (test code=K) 3.8 mmol/L 3.5-5.1 CHLORIDE (test code=CL) 109.0 mmol/L 98-107 CARBON DIOXIDE (test code=CO2) 33.0 mmol/L 21-32 ANION GAP (test code=GAP) 7.8 10-20 GLUCOSE (test code=GLU) 122 mg/dL 74-106 BLOOD UREA NITROGEN (test code=BUN) 57 mg/dL 7-18 GLOMERULAR FILTRATION RATE (test code=GFR) 42 mL/min >=60 Estimated GFR by using Modified MDRD formula.Chronic kidney disease is defined as either kidney damageor GFR <60 mL/min/1.73 m2 for >3 months. CREATININE (test code=CREAT) 1.60 mg/dL 0.7-1.3 BUN/CREATININE RATIO (test code=BUN/CREA) 35.6 10-20 CALCIUM (test code=CA) 8.9 mg/dL 8.5-10.1 [id number] 03:19:00* Test Item Value Reference Range Comments PHOSPHORUS (test code=PHOS) 4.4 mg/dL 2.5-4.9 [id number] 03:19:00* Test Item Value Reference Range Comments MAGNESIUM (test code=MAG) 2.8 mg/dL 1.8-2.4 CALCIUM [id number] 03:19:00* Test Item Value Reference Range Comments CALCIUM IONIZED (test code=SHANNAN) mmol/L 1.12-1.32 BASIC METABOLIC [id number] 03:07:00* Test Item Value Reference Range Comments SODIUM (test code=NA) 146 mmol/L 136-145 POTASSIUM (test code=K) 3.8 mmol/L 3.5-5.1 CHLORIDE (test code=CL) 109.0 mmol/L 98-107 CARBON DIOXIDE (test code=CO2) mmol/L 21-32 ANION GAP (test code=GAP) 10-20 GLUCOSE (test code=GLU) mg/dL 74-106 BLOOD UREA NITROGEN (test code=BUN) mg/dL 7-18 GLOMERULAR FILTRATION RATE (test code=GFR) mL/min >=60 CREATININE (test code=CREAT) mg/dL 0.7-1.3 BUN/CREATININE RATIO (test code=BUN/CREA) 10-20 CALCIUM (test code=CA) mg/dL 8.5-10.1 [id number] 03:07:00* Test Item Value Reference Range Comments PHOSPHORUS (test code=PHOS) mg/dL 2.5-4.9 [id number] 03:07:00* Test Item Value Reference Range Comments MAGNESIUM (test code=MAG) mg/dL 1.8-2.4 CALCIUM [id number] 03:07:00* Test Item Value Reference Range Comments CALCIUM IONIZED (test code=SHANNAN) mmol/L 1.12-1.32 CBC W/MANUAL [id number] 03:06:00* Test Item Value Reference Range Comments WHITE BLOOD CELL (test code=WBC) 13.5 K/mm3 4.5-12.5 RED BLOOD CELL (test code=RBC) 5.73 mill/mm3 4.0-5.8 HEMOGLOBIN (test code=HGB) 15.6 gram/dL 13.0-17.5 HEMATOCRIT (test code=HCT) 50.8 % 42.0-52.0 MEAN CELL VOLUME (test code=MCV) 88.7 fL 80-98 MEAN CELL HGB (test code=MCH) 27.2 picogram 27.0-33.0 MEAN CELL HGB CONCETRATION (test code=MCHC) 30.7 gram/dL 33.0-36.0 RED CELL DISTRIBUTION WIDTH (test code=RDW) 13.8 % 11.6-16.2 RED CELL DISTRIBUTION WIDTH SD (test code=RDW-SD) 44.3 fL 37.0-51.0 PLATELET COUNT (test code=PLT) 172 K/mm3 150-450 MEAN PLATELET VOLUME (test code=MPV) 12.0 fL 6.7-11.0 IMMATURE GRANULOCYTE % (test code=IG%) 1.0 % 0.0-5.0 NUCLEATED RBC % (test code=NRBC%) 0.0 % 0-0 NEUTROPHIL # (test code=NT#) 11.12 K/mm3 1.8-7.7 IMMATURE GRANULOCYTE # (test code=IG#) 0.14 x10 3/uL 0-0.03 LYMPHOCYTE # (test code=LY#) 0.95 K/mm3 1.0-5.0 MONOCYTE # (test code=MO#) 1.02 K/mm3 0-0.8 EOSINOPHIL # (test code=EO#) 0.19 K/mm3 0.0-0.5 BASOPHIL # (test code=BA#) 0.03 K/mm3 0.0-0.2 NUCLEATED RBC # (test code=NRBC#) 0.00 K/mm3 0.0-0.1 MANUAL DIFF REQUIRED (test code=MDIFF) YES STAIN ACCEPTABILITY (test code=STN ACCEPTABLE) STAIN ACCEPTABLE TOTAL CELLS COUNTED (test code=TCC) 115 #CELLS SEGMENTED NEUTROPHILS (test code=SEG) 80.0 % 39-69 BAND NEUTROPHIL (test code=BAND) 0 % 0-10 LYMPHOCYTE (test code=LYMPH) 10.4 % 25-55 REACTIVE LYMPH (test code=RELYMPH) 1.7 % MONOCYTE (test code=MON) 7.0 % 0-10 EOSINOPHIL (test code=EOS) 0.9 % 0.0-5.0 BASOPHIL (test code=BASO) 0 % 0-1.0 METAMYELOCYTE (test code=META) 0 % 0-0 MYELOCYTE (test code=MYELO) 0 % 0.0-0.0 PROMYELOCYTE (test code=PROM) 0 % 0-0 MORPHOLOGY COMMENT (test code=MOC) NORMAL PLATELET ESTIMATE (test code=PLTEST) ADEQUATE PLATELET MORPHOLOGY (test code=PLTMORPH) NORMAL IMMATURE FORMS (test code=IMMAT) 0 % 0-0 CBC W/MANUAL [id number] 02:46:00* Test Item Value Reference Range Comments WHITE BLOOD CELL (test code=WBC) 13.5 K/mm3 4.5-12.5 RED BLOOD CELL (test code=RBC) 5.73 mill/mm3 4.0-5.8 HEMOGLOBIN (test code=HGB) 15.6 gram/dL 13.0-17.5 HEMATOCRIT (test code=HCT) 50.8 % 42.0-52.0 MEAN CELL VOLUME (test code=MCV) 88.7 fL 80-98 MEAN CELL HGB (test code=MCH) 27.2 picogram 27.0-33.0 MEAN CELL HGB CONCETRATION (test code=MCHC) 30.7 gram/dL 33.0-36.0 RED CELL DISTRIBUTION WIDTH (test code=RDW) 13.8 % 11.6-16.2 RED CELL DISTRIBUTION WIDTH SD (test code=RDW-SD) 44.3 fL 37.0-51.0 PLATELET COUNT (test code=PLT) 172 K/mm3 150-450 MEAN PLATELET VOLUME (test code=MPV) 12.0 fL 6.7-11.0 IMMATURE GRANULOCYTE % (test code=IG%) 1.0 % 0.0-5.0 NUCLEATED RBC % (test code=NRBC%) 0.0 % 0-0 NEUTROPHIL # (test code=NT#) 11.12 K/mm3 1.8-7.7 IMMATURE GRANULOCYTE # (test code=IG#) 0.14 x10 3/uL 0-0.03 LYMPHOCYTE # (test code=LY#) 0.95 K/mm3 1.0-5.0 MONOCYTE # (test code=MO#) 1.02 K/mm3 0-0.8 EOSINOPHIL # (test code=EO#) 0.19 K/mm3 0.0-0.5 BASOPHIL # (test code=BA#) 0.03 K/mm3 0.0-0.2 NUCLEATED RBC # (test code=NRBC#) 0.00 K/mm3 0.0-0.1 MANUAL DIFF REQUIRED (test code=MDIFF) YES STAIN ACCEPTABILITY (test code=STN ACCEPTABLE) TOTAL CELLS COUNTED (test code=TCC) #CELLS SEGMENTED NEUTROPHILS (test code=SEG) % 39-69 LYMPHOCYTE (test code=LYMPH) % 25-55 MONOCYTE (test code=MON) % 0-10 MORPHOLOGY COMMENT (test code=MOC) PLATELET ESTIMATE (test code=PLTEST) PLATELET MORPHOLOGY (test code=PLTMORPH) CBC W/MANUAL [id number] 02:43:00* Test Item Value Reference Range Comments WHITE BLOOD CELL (test code=WBC) 13.5 K/mm3 4.5-12.5 RED BLOOD CELL (test code=RBC) 5.73 mill/mm3 4.0-5.8 HEMOGLOBIN (test code=HGB) 15.6 gram/dL 13.0-17.5 HEMATOCRIT (test code=HCT) 50.8 % 42.0-52.0 MEAN CELL VOLUME (test code=MCV) 88.7 fL 80-98 MEAN CELL HGB (test code=MCH) 27.2 picogram 27.0-33.0 MEAN CELL HGB CONCETRATION (test code=MCHC) 30.7 gram/dL 33.0-36.0 RED CELL DISTRIBUTION WIDTH (test code=RDW) 13.8 % 11.6-16.2 RED CELL DISTRIBUTION WIDTH SD (test code=RDW-SD) 44.3 fL 37.0-51.0 PLATELET COUNT (test code=PLT) 172 K/mm3 150-450 MEAN PLATELET VOLUME (test code=MPV) 12.0 fL 6.7-11.0 IMMATURE GRANULOCYTE % (test code=IG%) 1.0 % 0.0-5.0 NUCLEATED RBC % (test code=NRBC%) 0.0 % 0-0 NEUTROPHIL # (test code=NT#) 11.12 K/mm3 1.8-7.7 IMMATURE GRANULOCYTE # (test code=IG#) 0.14 x10 3/uL 0-0.03 LYMPHOCYTE # (test code=LY#) 0.95 K/mm3 1.0-5.0 MONOCYTE # (test code=MO#) 1.02 K/mm3 0-0.8 EOSINOPHIL # (test code=EO#) 0.19 K/mm3 0.0-0.5 BASOPHIL # (test code=BA#) 0.03 K/mm3 0.0-0.2 NUCLEATED RBC # (test code=NRBC#) 0.00 K/mm3 0.0-0.1 MANUAL DIFF REQUIRED (test code=MDIFF) YES STAIN ACCEPTABILITY (test code=STN ACCEPTABLE) TOTAL CELLS COUNTED (test code=TCC) #CELLS SEGMENTED NEUTROPHILS (test code=SEG) % 39-69 LYMPHOCYTE (test code=LYMPH) % 25-55 MONOCYTE (test code=MON) % 0-10 EOSINOPHIL (test code=EOS) % 0.0-5.0 CABOT RINGS (test code=CAB) MORPHOLOGY COMMENT (test code=MOC) PLATELET ESTIMATE (test code=PLTEST) PLATELET MORPHOLOGY (test code=PLTMORPH) CBC W/MANUAL [id number] 02:43:00* Test Item Value Reference Range Comments WHITE BLOOD CELL (test code=WBC) 13.5 K/mm3 4.5-12.5 RED BLOOD CELL (test code=RBC) 5.73 mill/mm3 4.0-5.8 HEMOGLOBIN (test code=HGB) 15.6 gram/dL 13.0-17.5 HEMATOCRIT (test code=HCT) 50.8 % 42.0-52.0 MEAN CELL VOLUME (test code=MCV) 88.7 fL 80-98 MEAN CELL HGB (test code=MCH) 27.2 picogram 27.0-33.0 MEAN CELL HGB CONCETRATION (test code=MCHC) 30.7 gram/dL 33.0-36.0 RED CELL DISTRIBUTION WIDTH (test code=RDW) 13.8 % 11.6-16.2 RED CELL DISTRIBUTION WIDTH SD (test code=RDW-SD) 44.3 fL 37.0-51.0 PLATELET COUNT (test code=PLT) 172 K/mm3 150-450 MEAN PLATELET VOLUME (test code=MPV) 12.0 fL 6.7-11.0 IMMATURE GRANULOCYTE % (test code=IG%) 1.0 % 0.0-5.0 NUCLEATED RBC % (test code=NRBC%) 0.0 % 0-0 NEUTROPHIL # (test code=NT#) 11.12 K/mm3 1.8-7.7 IMMATURE GRANULOCYTE # (test code=IG#) 0.14 x10 3/uL 0-0.03 LYMPHOCYTE # (test code=LY#) 0.95 K/mm3 1.0-5.0 MONOCYTE # (test code=MO#) 1.02 K/mm3 0-0.8 EOSINOPHIL # (test code=EO#) 0.19 K/mm3 0.0-0.5 BASOPHIL # (test code=BA#) 0.03 K/mm3 0.0-0.2 NUCLEATED RBC # (test code=NRBC#) 0.00 K/mm3 0.0-0.1 MANUAL DIFF REQUIRED (test code=MDIFF) YES STAIN ACCEPTABILITY (test code=STN ACCEPTABLE) TOTAL CELLS COUNTED (test code=TCC) #CELLS SEGMENTED NEUTROPHILS (test code=SEG) % 39-69 LYMPHOCYTE (test code=LYMPH) % 25-55 MONOCYTE (test code=MON) % 0-10 EOSINOPHIL (test code=EOS) % 0.0-5.0 MORPHOLOGY COMMENT (test code=MOC) PLATELET ESTIMATE (test code=PLTEST) PLATELET MORPHOLOGY (test code=PLTMORPH) CBC W/MANUAL [id number] 02:42:00* Test Item Value Reference Range Comments WHITE BLOOD CELL (test code=WBC) 13.5 K/mm3 4.5-12.5 RED BLOOD CELL (test code=RBC) 5.73 mill/mm3 4.0-5.8 HEMOGLOBIN (test code=HGB) 15.6 gram/dL 13.0-17.5 HEMATOCRIT (test code=HCT) 50.8 % 42.0-52.0 MEAN CELL VOLUME (test code=MCV) 88.7 fL 80-98 MEAN CELL HGB (test code=MCH) 27.2 picogram 27.0-33.0 MEAN CELL HGB CONCETRATION (test code=MCHC) 30.7 gram/dL 33.0-36.0 RED CELL DISTRIBUTION WIDTH (test code=RDW) 13.8 % 11.6-16.2 RED CELL DISTRIBUTION WIDTH SD (test code=RDW-SD) 44.3 fL 37.0-51.0 PLATELET COUNT (test code=PLT) 172 K/mm3 150-450 MEAN PLATELET VOLUME (test code=MPV) 12.0 fL 6.7-11.0 IMMATURE GRANULOCYTE % (test code=IG%) 1.0 % 0.0-5.0 NUCLEATED RBC % (test code=NRBC%) 0.0 % 0-0 NEUTROPHIL # (test code=NT#) 11.12 K/mm3 1.8-7.7 IMMATURE GRANULOCYTE # (test code=IG#) 0.14 x10 3/uL 0-0.03 LYMPHOCYTE # (test code=LY#) 0.95 K/mm3 1.0-5.0 MONOCYTE # (test code=MO#) 1.02 K/mm3 0-0.8 EOSINOPHIL # (test code=EO#) 0.19 K/mm3 0.0-0.5 BASOPHIL # (test code=BA#) 0.03 K/mm3 0.0-0.2 NUCLEATED RBC # (test code=NRBC#) 0.00 K/mm3 0.0-0.1 MANUAL DIFF REQUIRED (test code=MDIFF) YES STAIN ACCEPTABILITY (test code=STN ACCEPTABLE) TOTAL CELLS COUNTED (test code=TCC) #CELLS SEGMENTED NEUTROPHILS (test code=SEG) % 39-69 LYMPHOCYTE (test code=LYMPH) % 25-55 MONOCYTE (test code=MON) % 0-10 EOSINOPHIL (test code=EOS) % 0.0-5.0 CABOT RINGS (test code=CAB) MORPHOLOGY COMMENT (test code=MOC) PLATELET ESTIMATE (test code=PLTEST) PLATELET MORPHOLOGY (test code=PLTMORPH) CBC W/MANUAL [id number] 02:42:00* Test Item Value Reference Range Comments WHITE BLOOD CELL (test code=WBC) 13.5 K/mm3 4.5-12.5 RED BLOOD CELL (test code=RBC) 5.73 mill/mm3 4.0-5.8 HEMOGLOBIN (test code=HGB) 15.6 gram/dL 13.0-17.5 HEMATOCRIT (test code=HCT) 50.8 % 42.0-52.0 MEAN CELL VOLUME (test code=MCV) 88.7 fL 80-98 MEAN CELL HGB (test code=MCH) 27.2 picogram 27.0-33.0 MEAN CELL HGB CONCETRATION (test code=MCHC) 30.7 gram/dL 33.0-36.0 RED CELL DISTRIBUTION WIDTH (test code=RDW) 13.8 % 11.6-16.2 RED CELL DISTRIBUTION WIDTH SD (test code=RDW-SD) 44.3 fL 37.0-51.0 PLATELET COUNT (test code=PLT) 172 K/mm3 150-450 MEAN PLATELET VOLUME (test code=MPV) 12.0 fL 6.7-11.0 IMMATURE GRANULOCYTE % (test code=IG%) 1.0 % 0.0-5.0 NUCLEATED RBC % (test code=NRBC%) 0.0 % 0-0 NEUTROPHIL # (test code=NT#) 11.12 K/mm3 1.8-7.7 IMMATURE GRANULOCYTE # (test code=IG#) 0.14 x10 3/uL 0-0.03 LYMPHOCYTE # (test code=LY#) 0.95 K/mm3 1.0-5.0 MONOCYTE # (test code=MO#) 1.02 K/mm3 0-0.8 EOSINOPHIL # (test code=EO#) 0.19 K/mm3 0.0-0.5 BASOPHIL # (test code=BA#) 0.03 K/mm3 0.0-0.2 NUCLEATED RBC # (test code=NRBC#) 0.00 K/mm3 0.0-0.1 MANUAL DIFF REQUIRED (test code=MDIFF) YES STAIN ACCEPTABILITY (test code=STN ACCEPTABLE) TOTAL CELLS COUNTED (test code=TCC) #CELLS SEGMENTED NEUTROPHILS (test code=SEG) % 39-69 LYMPHOCYTE (test code=LYMPH) % 25-55 MONOCYTE (test code=MON) % 0-10 EOSINOPHIL (test code=EOS) % 0.0-5.0 CABOT RINGS (test code=CAB) MORPHOLOGY COMMENT (test code=MOC) PLATELET ESTIMATE (test code=PLTEST) PLATELET MORPHOLOGY (test code=PLTMORPH) CBC W/AUTO [id number] 02:40:00* Test Item Value Reference Range Comments WHITE BLOOD CELL (test code=WBC) K/mm3 4.5-12.5 RED BLOOD CELL (test code=RBC) mill/mm3 4.0-5.8 HEMOGLOBIN (test code=HGB) 15.6 gram/dL 13.0-17.5 HEMATOCRIT (test code=HCT) 50.8 % 42.0-52.0 MEAN CELL VOLUME (test code=MCV) fL 80-98 MEAN CELL HGB (test code=MCH) picogram 27.0-33.0 MEAN CELL HGB CONCETRATION (test code=MCHC) gram/dL 33.0-36.0 RED CELL DISTRIBUTION WIDTH (test code=RDW) % 11.6-16.2 RED CELL DISTRIBUTION WIDTH SD (test code=RDW-SD) fL 37.0-51.0 PLATELET COUNT (test code=PLT) K/mm3 150-450 MEAN PLATELET VOLUME (test code=MPV) fL 6.7-11.0 NEUTROPHIL % (test code=NT%) % 39.0-69.0 IMMATURE GRANULOCYTE % (test code=IG%) % 0.0-5.0 LYMPHOCYTE % (test code=LY%) % 25.0-55.0 MONOCYTE % (test code=MO%) % 0.0-10.0 EOSINOPHIL % (test code=EO%) % 0.0-5.0 BASOPHIL % (test code=BA%) % 0.0-1.0 NEUTROPHIL # (test code=NT#) K/mm3 1.8-7.7 LYMPHOCYTE # (test code=LY#) K/mm3 1.0-5.0 MONOCYTE # (test code=MO#) K/mm3 0-0.8 EOSINOPHIL # (test code=EO#) K/mm3 0.0-0.5 BASOPHIL # (test code=BA#) K/mm3 0.0-0.2 THROMBOPLASTIN TIME [id number] 15:45:00* Test Item Value Reference Range Comments THROMBOPLASTIN TIME PARTIAL (test code=PTT) 51.0 seconds 25.0-36.5 IS PATIENT ON ANTICOAGULANTS? YLIST ANTICOAGULANTS HEPARIN- CT HEAD/BRAIN W/O [id number] 13:03:00 Name: MULUGETA DOTSON [facility] : 1945 Age/S: 73 / M [address] [facility] Unit #: [id number] Loc: [place] [address] Phys: Cami Mason MD Acct: [id number] Dis Date: Status: ADM IN PHONE #: [phone] Exam Date: 08/27/2019 1203 FAX #: [phone] Reason: Stroke; On heparin Gtt EXAMS: CPT CODE: [id number] CT HEAD/BRAIN W/O CONT 43539 HISTORY: Stroke; On heparin Gtt TECHNIQUE: Noncontrast 2.[address] of the head. Examination acquired within 24 hours of arrival. Automated exposure control for dose reduction. COMPARISON: MRI and CT scan of the brain August 22, 2019 FINDINGS: No lacerations or contusions of the scalp or facial soft tissues. Calvarium and skull base are intact. No acute hemorrhage. 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 There is edema of the right frontal lobe which compresses the right lateral ventricle which causes 3 mm contralateral midline shift (assessment for midline shift is somewhat limited due to suboptimal patient positioning. However compared to the prior exam this edema appears more pronounced with increased compression of the right lateral ventricle. Additionally there appears to be an old infarct involving the right occipital lobe that is unchanged from the prior exam. There is fluid and mucosal thickening in the right maxillary sinus. Mucosal thi ckening is also seen in the ethmoid sinuses.. Mastoid air cells and middl e ear cavities are clear. Orbital contents are unremarkable. IMPRESSION: Redemonstration of right MCA territor ial infarct with increased edema of the right frontal lobe from the prio r exam as evidenced by compression of the right lateral ventricle. Midli ne shift appears to be less than 5 mm however evaluation is somewhat camp ited due to patient positioning. Old infarct in the right occipi alex lobe appears unchanged. Location: [facility] PAGE 1 Signed Report (CONTINUED) Name: MULUGETA DOTSON [facility] : 1945 Age/S: 73 / M [address] Unit #: [id number] Loc: [place] Her[place] [address] Phys: Cami Mason MD Acct: [id number] Dis Date: Status: ADM IN PHONE #: [phone] Exam Date: 08/27/2019 1203 FAX #: [phone] Reason: St roke; On heparin Gtt EXAMS: CPT CODE: [id number] CT HEAD/BRAIN W/O CONT 04959 <Continued> at 1303 Reported and signed by: Celso Coker MD CC: Davie Schultz; Cami Mason MD; Autl Maynard MD Technologist:Dave Aguirre RT(R),(MR),(CT) CTDI: DLP: Trnscb Date/Time: 08/27/2019 (2733) [email or web address] Orig Print D/T: S: 08/27/2019 (5089) PAGE 2 Signed Report THROMBOPLASTIN TIME PARTIAL 2019-08-27 08:50:00* Test Item Value Reference Range Comments THROMBOPLASTIN TIME PARTIAL (test code=PTT) 52.2 seconds 25.0-36.5 IS PATIENT ON ANTICOAGULANTS? YLIST ANTICOAGULANTS HEPARIN- XR CHEST 1 V 2019-08-27 06:23:00 FAX: Hung Laura [place]: B St: ADM FAX: Davie Allen [phone] FAX: Atul Maynard MD [phone] Name: MULUGETA DOTSON [facility] : 1945 Age/S: 73/M [address] Unit #: [id number] Loc: V.S07 R[place] Herrera [address] Phys: Hung Laura Acct: [id number] Dis Date: Status: ADM IN PH ONE #: [phone] Exam Date: 08/27/2019534 FAX #: [phone] Reason: respiratory failure EXAMS: CPT CODE: [id number] XR CHEST 1 V 18609 CLINICAL HISTO RY: respiratory failure TECHNIQUE: AP chest x-ray CO MPARISON: Previous day. IMPRESSION: Low lung v olumes with bibasilar subsegmental atelectasis. Improved perihilar inter stitial opacity. No pleural effusion. Cardiomegaly. Atherosclerotic vasc ular calcification of the thoracic aorta. NG tube. LOCATION: LP Elect ronically Signed by Lilian Cruz D.O. on 08/27/2019 at 0623 Reported and signed by: Lilian Cruz D.O. CC: Hung Laura; Davie Schultz; Atul Maynard MD Technologist: RENZO Earl Trnscrd Date/Time/By: 08/27/2019 (622) : By: [email or web address] Orig Print D/T: S: 08/27/2019 (625) PAGE 1 Signed Report CBC W/MANUAL DIFF 2019-08-27 03:13:00* Test Item Value Reference Range Comments WHITE BLOOD CELL (test code=WBC) 14.9 K/mm3 4.5-12.5 RED BLOOD CELL (test code=RBC) 5.83 mill/mm3 4.0-5.8 HEMOGLOBIN (test code=HGB) 16.0 gram/dL 13.0-17.5 HEMATOCRIT (test code=HCT) 50.5 % 42.0-52.0 MEAN CELL VOLUME (test code=MCV) 86.6 fL 80-98 MEAN CELL HGB (test code=MCH) 27.4 picogram 27.0-33.0 MEAN CELL HGB CONCETRATION (test code=MCHC) 31.7 gram/dL 33.0-36.0 RED CELL DISTRIBUTION WIDTH (test code=RDW) 13.8 % 11.6-16.2 RED CELL DISTRIBUTION WIDTH SD (test code=RDW-SD) 43.0 fL 37.0-51.0 PLATELET COUNT (test code=PLT) 165 K/mm3 150-450 MEAN PLATELET VOLUME (test code=MPV) 12.1 fL 6.7-11.0 IMMATURE GRANULOCYTE % (test code=IG%) 0.6 % 0.0-5.0 NUCLEATED RBC % (test code=NRBC%) 0.0 % 0-0 NEUTROPHIL # (test code=NT#) 12.36 K/mm3 1.8-7.7 IMMATURE GRANULOCYTE # (test code=IG#) 0.09 x10 3/uL 0-0.03 LYMPHOCYTE # (test code=LY#) 1.19 K/mm3 1.0-5.0 MONOCYTE # (test code=MO#) 1.12 K/mm3 0-0.8 EOSINOPHIL # (test code=EO#) 0.13 K/mm3 0.0-0.5 BASOPHIL # (test code=BA#) 0.04 K/mm3 0.0-0.2 NUCLEATED RBC # (test code=NRBC#) 0.00 K/mm3 0.0-0.1 MANUAL DIFF REQUIRED (test code=MDIFF) YES STAIN ACCEPTABILITY (test code=STN ACCEPTABLE) STAIN ACCEPTABLE TOTAL CELLS COUNTED (test code=TCC) 115 #CELLS SEGMENTED NEUTROPHILS (test code=SEG) 86.9 % 39-69 BAND NEUTROPHIL (test code=BAND) 0 % 0-10 LYMPHOCYTE (test code=LYMPH) 6.1 % 25-55 REACTIVE LYMPH (test code=RELYMPH) 3.5 % MONOCYTE (test code=MON) 3.5 % 0-10 EOSINOPHIL (test code=EOS) 0 % 0.0-5.0 BASOPHIL (test code=BASO) 0 % 0-1.0 METAMYELOCYTE (test code=META) 0 % 0-0 MYELOCYTE (test code=MYELO) 0 % 0.0-0.0 PROMYELOCYTE (test code=PROM) 0 % 0-0 POLYCHROMASIA (test code=POLC) 1+ POIKILOCYTOSIS (test code=POIK) 1+ NANO CELLS (test code=NANO) 1+ NONE PLATELET ESTIMATE (test code=PLTEST) ADEQUATE PLATELET MORPHOLOGY (test code=PLTMORPH) NORMAL IMMATURE FORMS (test code=IMMAT) 0 % 0-0 THROMBOPLASTIN TIME [id number] 03:11:00* Test Item Value Reference Range Comments THROMBOPLASTIN TIME PARTIAL (test code=PTT) 57.6 seconds 25.0-36.5 IS PATIENT ON ANTICOAGULANTS? YLIST ANTICOAGULANTS HEPARINBASIC METABOLIC [id number] 02:52:00* Test Item Value Reference Range Comments SODIUM (test code=NA) 148 mmol/L 136-145 POTASSIUM (test code=K) 3.7 mmol/L 3.5-5.1 CHLORIDE (test code=CL) 106.0 mmol/L 98-107 CARBON DIOXIDE (test code=CO2) 36.0 mmol/L 21-32 ANION GAP (test code=GAP) 9.7 10-20 GLUCOSE (test code=GLU) 126 mg/dL 74-106 BLOOD UREA NITROGEN (test code=BUN) 54 mg/dL 7-18 GLOMERULAR FILTRATION RATE (test code=GFR) 39 mL/min >=60 Estimated GFR by using Modified MDRD formula.Chronic kidney disease is defined as either kidney damageor GFR <60 mL/min/1.73 m2 for >3 months. CREATININE (test code=CREAT) 1.70 mg/dL 0.7-1.3 BUN/CREATININE RATIO (test code=BUN/CREA) 31.8 10-20 CALCIUM (test code=CA) 9.4 mg/dL 8.5-10.1 [id number] 02:52:00* Test Item Value Reference Range Comments PHOSPHORUS (test code=PHOS) 4.6 mg/dL 2.5-4.9 [id number] 02:52:00* Test Item Value Reference Range Comments MAGNESIUM (test code=MAG) 2.7 mg/dL 1.8-2.4 CALCIUM [id number] 02:52:00* Test Item Value Reference Range Comments CALCIUM IONIZED (test code=SHANNAN) 1.23 mmol/L 1.12-1.32 CBC W/MANUAL [id number] 02:49:00* Test Item Value Reference Range Comments WHITE BLOOD CELL (test code=WBC) 14.9 K/mm3 4.5-12.5 RED BLOOD CELL (test code=RBC) 5.83 mill/mm3 4.0-5.8 HEMOGLOBIN (test code=HGB) 16.0 gram/dL 13.0-17.5 HEMATOCRIT (test code=HCT) 50.5 % 42.0-52.0 MEAN CELL VOLUME (test code=MCV) 86.6 fL 80-98 MEAN CELL HGB (test code=MCH) 27.4 picogram 27.0-33.0 MEAN CELL HGB CONCETRATION (test code=MCHC) 31.7 gram/dL 33.0-36.0 RED CELL DISTRIBUTION WIDTH (test code=RDW) 13.8 % 11.6-16.2 RED CELL DISTRIBUTION WIDTH SD (test code=RDW-SD) 43.0 fL 37.0-51.0 PLATELET COUNT (test code=PLT) 165 K/mm3 150-450 MEAN PLATELET VOLUME (test code=MPV) 12.1 fL 6.7-11.0 IMMATURE GRANULOCYTE % (test code=IG%) 0.6 % 0.0-5.0 NUCLEATED RBC % (test code=NRBC%) 0.0 % 0-0 NEUTROPHIL # (test code=NT#) 12.36 K/mm3 1.8-7.7 IMMATURE GRANULOCYTE # (test code=IG#) 0.09 x10 3/uL 0-0.03 LYMPHOCYTE # (test code=LY#) 1.19 K/mm3 1.0-5.0 MONOCYTE # (test code=MO#) 1.12 K/mm3 0-0.8 EOSINOPHIL # (test code=EO#) 0.13 K/mm3 0.0-0.5 BASOPHIL # (test code=BA#) 0.04 K/mm3 0.0-0.2 NUCLEATED RBC # (test code=NRBC#) 0.00 K/mm3 0.0-0.1 MANUAL DIFF REQUIRED (test code=MDIFF) YES STAIN ACCEPTABILITY (test code=STN ACCEPTABLE) TOTAL CELLS COUNTED (test code=TCC) #CELLS SEGMENTED NEUTROPHILS (test code=SEG) % 39-69 LYMPHOCYTE (test code=LYMPH) % 25-55 MONOCYTE (test code=MON) % 0-10 EOSINOPHIL (test code=EOS) % 0.0-5.0 CABOT RINGS (test code=CAB) MORPHOLOGY COMMENT (test code=MOC) PLATELET ESTIMATE (test code=PLTEST) PLATELET MORPHOLOGY (test code=PLTMORPH) CBC W/MANUAL [id number] 02:49:00* Test Item Value Reference Range Comments WHITE BLOOD CELL (test code=WBC) 14.9 K/mm3 4.5-12.5 RED BLOOD CELL (test code=RBC) 5.83 mill/mm3 4.0-5.8 HEMOGLOBIN (test code=HGB) 16.0 gram/dL 13.0-17.5 HEMATOCRIT (test code=HCT) 50.5 % 42.0-52.0 MEAN CELL VOLUME (test code=MCV) 86.6 fL 80-98 MEAN CELL HGB (test code=MCH) 27.4 picogram 27.0-33.0 MEAN CELL HGB CONCETRATION (test code=MCHC) 31.7 gram/dL 33.0-36.0 RED CELL DISTRIBUTION WIDTH (test code=RDW) 13.8 % 11.6-16.2 RED CELL DISTRIBUTION WIDTH SD (test code=RDW-SD) 43.0 fL 37.0-51.0 PLATELET COUNT (test code=PLT) 165 K/mm3 150-450 MEAN PLATELET VOLUME (test code=MPV) 12.1 fL 6.7-11.0 IMMATURE GRANULOCYTE % (test code=IG%) 0.6 % 0.0-5.0 NUCLEATED RBC % (test code=NRBC%) 0.0 % 0-0 NEUTROPHIL # (test code=NT#) 12.36 K/mm3 1.8-7.7 IMMATURE GRANULOCYTE # (test code=IG#) 0.09 x10 3/uL 0-0.03 LYMPHOCYTE # (test code=LY#) 1.19 K/mm3 1.0-5.0 MONOCYTE # (test code=MO#) 1.12 K/mm3 0-0.8 EOSINOPHIL # (test code=EO#) 0.13 K/mm3 0.0-0.5 BASOPHIL # (test code=BA#) 0.04 K/mm3 0.0-0.2 NUCLEATED RBC # (test code=NRBC#) 0.00 K/mm3 0.0-0.1 MANUAL DIFF REQUIRED (test code=MDIFF) YES STAIN ACCEPTABILITY (test code=STN ACCEPTABLE) TOTAL CELLS COUNTED (test code=TCC) #CELLS SEGMENTED NEUTROPHILS (test code=SEG) % 39-69 LYMPHOCYTE (test code=LYMPH) % 25-55 MONOCYTE (test code=MON) % 0-10 EOSINOPHIL (test code=EOS) % 0.0-5.0 MORPHOLOGY COMMENT (test code=MOC) PLATELET ESTIMATE (test code=PLTEST) PLATELET MORPHOLOGY (test code=PLTMORPH) CBC W/MANUAL [id number] 02:49:00* Test Item Value Reference Range Comments WHITE BLOOD CELL (test code=WBC) 14.9 K/mm3 4.5-12.5 RED BLOOD CELL (test code=RBC) 5.83 mill/mm3 4.0-5.8 HEMOGLOBIN (test code=HGB) 16.0 gram/dL 13.0-17.5 HEMATOCRIT (test code=HCT) 50.5 % 42.0-52.0 MEAN CELL VOLUME (test code=MCV) 86.6 fL 80-98 MEAN CELL HGB (test code=MCH) 27.4 picogram 27.0-33.0 MEAN CELL HGB CONCETRATION (test code=MCHC) 31.7 gram/dL 33.0-36.0 RED CELL DISTRIBUTION WIDTH (test code=RDW) 13.8 % 11.6-16.2 RED CELL DISTRIBUTION WIDTH SD (test code=RDW-SD) 43.0 fL 37.0-51.0 PLATELET COUNT (test code=PLT) 165 K/mm3 150-450 MEAN PLATELET VOLUME (test code=MPV) 12.1 fL 6.7-11.0 IMMATURE GRANULOCYTE % (test code=IG%) 0.6 % 0.0-5.0 NUCLEATED RBC % (test code=NRBC%) 0.0 % 0-0 NEUTROPHIL # (test code=NT#) 12.36 K/mm3 1.8-7.7 IMMATURE GRANULOCYTE # (test code=IG#) 0.09 x10 3/uL 0-0.03 LYMPHOCYTE # (test code=LY#) 1.19 K/mm3 1.0-5.0 MONOCYTE # (test code=MO#) 1.12 K/mm3 0-0.8 EOSINOPHIL # (test code=EO#) 0.13 K/mm3 0.0-0.5 BASOPHIL # (test code=BA#) 0.04 K/mm3 0.0-0.2 NUCLEATED RBC # (test code=NRBC#) 0.00 K/mm3 0.0-0.1 MANUAL DIFF REQUIRED (test code=MDIFF) YES STAIN ACCEPTABILITY (test code=STN ACCEPTABLE) TOTAL CELLS COUNTED (test code=TCC) #CELLS SEGMENTED NEUTROPHILS (test code=SEG) % 39-69 LYMPHOCYTE (test code=LYMPH) % 25-55 MONOCYTE (test code=MON) % 0-10 MORPHOLOGY COMMENT (test code=MOC) PLATELET ESTIMATE (test code=PLTEST) PLATELET MORPHOLOGY (test code=PLTMORPH) CBC W/MANUAL [id number] 02:48:00* Test Item Value Reference Range Comments WHITE BLOOD CELL (test code=WBC) 14.9 K/mm3 4.5-12.5 RED BLOOD CELL (test code=RBC) 5.83 mill/mm3 4.0-5.8 HEMOGLOBIN (test code=HGB) 16.0 gram/dL 13.0-17.5 HEMATOCRIT (test code=HCT) 50.5 % 42.0-52.0 MEAN CELL VOLUME (test code=MCV) 86.6 fL 80-98 MEAN CELL HGB (test code=MCH) 27.4 picogram 27.0-33.0 MEAN CELL HGB CONCETRATION (test code=MCHC) 31.7 gram/dL 33.0-36.0 RED CELL DISTRIBUTION WIDTH (test code=RDW) 13.8 % 11.6-16.2 RED CELL DISTRIBUTION WIDTH SD (test code=RDW-SD) 43.0 fL 37.0-51.0 PLATELET COUNT (test code=PLT) 165 K/mm3 150-450 MEAN PLATELET VOLUME (test code=MPV) 12.1 fL 6.7-11.0 IMMATURE GRANULOCYTE % (test code=IG%) 0.6 % 0.0-5.0 NUCLEATED RBC % (test code=NRBC%) 0.0 % 0-0 NEUTROPHIL # (test code=NT#) 12.36 K/mm3 1.8-7.7 IMMATURE GRANULOCYTE # (test code=IG#) 0.09 x10 3/uL 0-0.03 LYMPHOCYTE # (test code=LY#) 1.19 K/mm3 1.0-5.0 MONOCYTE # (test code=MO#) 1.12 K/mm3 0-0.8 EOSINOPHIL # (test code=EO#) 0.13 K/mm3 0.0-0.5 BASOPHIL # (test code=BA#) 0.04 K/mm3 0.0-0.2 NUCLEATED RBC # (test code=NRBC#) 0.00 K/mm3 0.0-0.1 MANUAL DIFF REQUIRED (test code=MDIFF) YES STAIN ACCEPTABILITY (test code=STN ACCEPTABLE) TOTAL CELLS COUNTED (test code=TCC) #CELLS SEGMENTED NEUTROPHILS (test code=SEG) % 39-69 LYMPHOCYTE (test code=LYMPH) % 25-55 MONOCYTE (test code=MON) % 0-10 EOSINOPHIL (test code=EOS) % 0.0-5.0 CABOT RINGS (test code=CAB) MORPHOLOGY COMMENT (test code=MOC) PLATELET ESTIMATE (test code=PLTEST) PLATELET MORPHOLOGY (test code=PLTMORPH) CBC W/MANUAL [id number] 02:48:00* Test Item Value Reference Range Comments WHITE BLOOD CELL (test code=WBC) 14.9 K/mm3 4.5-12.5 RED BLOOD CELL (test code=RBC) 5.83 mill/mm3 4.0-5.8 HEMOGLOBIN (test code=HGB) 16.0 gram/dL 13.0-17.5 HEMATOCRIT (test code=HCT) 50.5 % 42.0-52.0 MEAN CELL VOLUME (test code=MCV) 86.6 fL 80-98 MEAN CELL HGB (test code=MCH) 27.4 picogram 27.0-33.0 MEAN CELL HGB CONCETRATION (test code=MCHC) 31.7 gram/dL 33.0-36.0 RED CELL DISTRIBUTION WIDTH (test code=RDW) 13.8 % 11.6-16.2 RED CELL DISTRIBUTION WIDTH SD (test code=RDW-SD) 43.0 fL 37.0-51.0 PLATELET COUNT (test code=PLT) 165 K/mm3 150-450 MEAN PLATELET VOLUME (test code=MPV) 12.1 fL 6.7-11.0 IMMATURE GRANULOCYTE % (test code=IG%) 0.6 % 0.0-5.0 NUCLEATED RBC % (test code=NRBC%) 0.0 % 0-0 NEUTROPHIL # (test code=NT#) 12.36 K/mm3 1.8-7.7 IMMATURE GRANULOCYTE # (test code=IG#) 0.09 x10 3/uL 0-0.03 LYMPHOCYTE # (test code=LY#) 1.19 K/mm3 1.0-5.0 MONOCYTE # (test code=MO#) 1.12 K/mm3 0-0.8 EOSINOPHIL # (test code=EO#) 0.13 K/mm3 0.0-0.5 BASOPHIL # (test code=BA#) 0.04 K/mm3 0.0-0.2 NUCLEATED RBC # (test code=NRBC#) 0.00 K/mm3 0.0-0.1 MANUAL DIFF REQUIRED (test code=MDIFF) YES STAIN ACCEPTABILITY (test code=STN ACCEPTABLE) TOTAL CELLS COUNTED (test code=TCC) #CELLS SEGMENTED NEUTROPHILS (test code=SEG) % 39-69 LYMPHOCYTE (test code=LYMPH) % 25-55 MONOCYTE (test code=MON) % 0-10 EOSINOPHIL (test code=EOS) % 0.0-5.0 CABOT RINGS (test code=CAB) MORPHOLOGY COMMENT (test code=MOC) PLATELET ESTIMATE (test code=PLTEST) PLATELET MORPHOLOGY (test code=PLTMORPH) CBC W/AUTO [id number] 02:27:00* Test Item Value Reference Range Comments WHITE BLOOD CELL (test code=WBC) 14.9 K/mm3 4.5-12.5 RED BLOOD CELL (test code=RBC) 5.83 mill/mm3 4.0-5.8 HEMOGLOBIN (test code=HGB) 16.0 gram/dL 13.0-17.5 HEMATOCRIT (test code=HCT) 50.5 % 42.0-52.0 MEAN CELL VOLUME (test code=MCV) 86.6 fL 80-98 MEAN CELL HGB (test code=MCH) 27.4 picogram 27.0-33.0 MEAN CELL HGB CONCETRATION (test code=MCHC) 31.7 gram/dL 33.0-36.0 RED CELL DISTRIBUTION WIDTH (test code=RDW) 13.8 % 11.6-16.2 RED CELL DISTRIBUTION WIDTH SD (test code=RDW-SD) 43.0 fL 37.0-51.0 PLATELET COUNT (test code=PLT) 165 K/mm3 150-450 MEAN PLATELET VOLUME (test code=MPV) 12.1 fL 6.7-11.0 NEUTROPHIL % (test code=NT%) 82.7 % 39.0-69.0 IMMATURE GRANULOCYTE % (test code=IG%) 0.6 % 0.0-5.0 LYMPHOCYTE % (test code=LY%) 8.0 % 25.0-55.0 MONOCYTE % (test code=MO%) 7.5 % 0.0-10.0 EOSINOPHIL % (test code=EO%) 0.9 % 0.0-5.0 BASOPHIL % (test code=BA%) 0.3 % 0.0-1.0 NUCLEATED RBC % (test code=NRBC%) 0.0 % 0-0 NEUTROPHIL # (test code=NT#) 12.36 K/mm3 1.8-7.7 IMMATURE GRANULOCYTE # (test code=IG#) 0.09 x10 3/uL 0-0.03 LYMPHOCYTE # (test code=LY#) 1.19 K/mm3 1.0-5.0 MONOCYTE # (test code=MO#) 1.12 K/mm3 0-0.8 EOSINOPHIL # (test code=EO#) 0.13 K/mm3 0.0-0.5 BASOPHIL # (test code=BA#) 0.04 K/mm3 0.0-0.2 NUCLEATED RBC # (test code=NRBC#) 0.00 K/mm3 0.0-0.1 BASIC METABOLIC [id number] 02:20:00* Test Item Value Reference Range Comments SODIUM (test code=NA) 148 mmol/L 136-145 POTASSIUM (test code=K) 3.7 mmol/L 3.5-5.1 CHLORIDE (test code=CL) 106.0 mmol/L 98-107 CARBON DIOXIDE (test code=CO2) 36.0 mmol/L 21-32 ANION GAP (test code=GAP) 9.7 10-20 GLUCOSE (test code=GLU) 126 mg/dL 74-106 BLOOD UREA NITROGEN (test code=BUN) 54 mg/dL 7-18 GLOMERULAR FILTRATION RATE (test code=GFR) 39 mL/min >=60 Estimated GFR by using Modified MDRD formula.Chronic kidney disease is defined as either kidney damageor GFR <60 mL/min/1.73 m2 for >3 months. CREATININE (test code=CREAT) 1.70 mg/dL 0.7-1.3 BUN/CREATININE RATIO (test code=BUN/CREA) 31.8 10-20 CALCIUM (test code=CA) 9.4 mg/dL 8.5-10.1 [id number] 02:20:00* Test Item Value Reference Range Comments PHOSPHORUS (test code=PHOS) 4.6 mg/dL 2.5-4.9 [id number] 02:20:00* Test Item Value Reference Range Comments MAGNESIUM (test code=MAG) 2.7 mg/dL 1.8-2.4 CALCIUM [id number] 02:20:00* Test Item Value Reference Range Comments CALCIUM IONIZED (test code=SHANNAN) mmol/L 1.12-1.32 BASIC METABOLIC [id number] 02:17:00* Test Item Value Reference Range Comments SODIUM (test code=NA) 148 mmol/L 136-145 POTASSIUM (test code=K) 3.7 mmol/L 3.5-5.1 CHLORIDE (test code=CL) 106.0 mmol/L 98-107 CARBON DIOXIDE (test code=CO2) mmol/L 21-32 ANION GAP (test code=GAP) 10-20 GLUCOSE (test code=GLU) mg/dL 74-106 BLOOD UREA NITROGEN (test code=BUN) mg/dL 7-18 GLOMERULAR FILTRATION RATE (test code=GFR) mL/min >=60 CREATININE (test code=CREAT) mg/dL 0.7-1.3 BUN/CREATININE RATIO (test code=BUN/CREA) 10-20 CALCIUM (test code=CA) mg/dL 8.5-10.1 [id number] 02:17:00* Test Item Value Reference Range Comments PHOSPHORUS (test code=PHOS) mg/dL 2.5-4.9 [id number] 02:17:00* Test Item Value Reference Range Comments MAGNESIUM (test code=MAG) mg/dL 1.8-2.4 CALCIUM [id number] 02:17:00* Test Item Value Reference Range Comments CALCIUM IONIZED (test code=SHANNAN) mmol/L 1.12-1.32 THROMBOPLASTIN TIME [id number] 21:33:00* Test Item Value Reference Range Comments THROMBOPLASTIN TIME PARTIAL (test code=PTT) 47.2 seconds 25.0-36.5 IS PATIENT ON ANTICOAGULANTS? YLIST ANTICOAGULANTS HEPARINTHROMBOPLASTIN TIME [id number] 15:57:00* Test Item Value Reference Range Comments THROMBOPLASTIN TIME PARTIAL (test code=PTT) 64.9 seconds 25.0-36.5 IS PATIENT ON ANTICOAGULANTS? YLIST ANTICOAGULANTS HEPARINBASIC METABOLIC [id number] 11:07:00* Test Item Value Reference Range Comments SODIUM (test code=NA) 146 mmol/L 136-145 POTASSIUM (test code=K) 4.0 mmol/L 3.5-5.1 CHLORIDE (test code=CL) 106.0 mmol/L 98-107 CARBON DIOXIDE (test code=CO2) 32.0 mmol/L 21-32 ANION GAP (test code=GAP) 12.0 10-20 GLUCOSE (test code=GLU) 128 mg/dL 74-106 BLOOD UREA NITROGEN (test code=BUN) 52 mg/dL 7-18 GLOMERULAR FILTRATION RATE (test code=GFR) 37 mL/min >=60 Estimated GFR by using Modified MDRD formula.Chronic kidney disease is defined as either kidney damageor GFR <60 mL/min/1.73 m2 for >3 months. CREATININE (test code=CREAT) 1.80 mg/dL 0.7-1.3 BUN/CREATININE RATIO (test code=BUN/CREA) 28.9 10-20 CALCIUM (test code=CA) 8.9 mg/dL 8.5-10.1 BASIC METABOLIC [id number] 11:00:00* Test Item Value Reference Range Comments SODIUM (test code=NA) 146 mmol/L 136-145 POTASSIUM (test code=K) 4.0 mmol/L 3.5-5.1 CHLORIDE (test code=CL) 106.0 mmol/L 98-107 CARBON DIOXIDE (test code=CO2) mmol/L 21-32 ANION GAP (test code=GAP) 10-20 GLUCOSE (test code=GLU) mg/dL 74-106 BLOOD UREA NITROGEN (test code=BUN) mg/dL 7-18 GLOMERULAR FILTRATION RATE (test code=GFR) mL/min >=60 CREATININE (test code=CREAT) mg/dL 0.7-1.3 BUN/CREATININE RATIO (test code=BUN/CREA) 10-20 CALCIUM (test code=CA) mg/dL 8.5-10.1 THROMBOPLASTIN TIME [id number] 10:22:00* Test Item Value Reference Range Comments THROMBOPLASTIN TIME PARTIAL (test code=PTT) 67.4 seconds 25.0-36.5 IS PATIENT ON ANTICOAGULANTS? YLIST ANTICOAGULANTS HEPARIN- XR CHEST 1 V 2019-08-26 06:26:00 FAX: Hung Laura [place]: St: ADM FAX: Davie Allen [phone] FAX: Atul Maynard MD [phone] Name: MULUGETA DOTSON [facility] : 1945 Age/S: 73/M [address] [facility] Unit #: [id number] Loc: V.S07 [place] [address] Phys: Hung Laura Acct: [id number] Dis Date: Status: ADM IN ONE #: [phone] Exam Date: 08/26/2019518 FAX #: [phone] Reason: respiratory failure EXAMS: CPT CODE: [id number] XR CHEST 1 V [id number] CLINICAL HISTO RY: respiratory failure TECHNIQUE: AP chest x-ray CO MPARISON: Previous day. IMPRESSION: Low lung v olumes with bibasilar subsegmental atelectasis. Bilateral perihilar inte rstitial opacity. No pleural effusion. Cardiomegaly. Atherosclerotic vas cular calcification of the thoracic aorta. NG tube. LOCATION: at 0626 Reported and signed by: Lilian Cruz D.O. CC: Hung Laura; Davie Bain; Atul Maynard MD Technologist: RENZO Earl Trnscrd Date/Time/By: 08/26/2019 () : By: [email or web address] Orig Print D/T: S: 08/26/2019 ([id number]) PAGE 1 Signed Report CBC W/MANUAL DIFF 2019-08-26 05:19:00* Test Item Value Reference Range Comments WHITE BLOOD CELL (test code=WBC) 12.5 K/mm3 4.5-12.5 RED BLOOD CELL (test code=RBC) 5.93 mill/mm3 4.0-5.8 HEMOGLOBIN (test code=HGB) 16.0 gram/dL 13.0-17.5 HEMATOCRIT (test code=HCT) 50.2 % 42.0-52.0 MEAN CELL VOLUME (test code=MCV) 84.7 fL 80-98 MEAN CELL HGB (test code=MCH) 27.0 picogram 27.0-33.0 MEAN CELL HGB CONCETRATION (test code=MCHC) 31.9 gram/dL 33.0-36.0 RED CELL DISTRIBUTION WIDTH (test code=RDW) 13.7 % 11.6-16.2 RED CELL DISTRIBUTION WIDTH SD (test code=RDW-SD) 42.2 fL 37.0-51.0 PLATELET COUNT (test code=PLT) 131 K/mm3 150-450 MEAN PLATELET VOLUME (test code=MPV) 12.1 fL 6.7-11.0 IMMATURE GRANULOCYTE % (test code=IG%) 0.2 % 0.0-5.0 NUCLEATED RBC % (test code=NRBC%) 0.0 % 0-0 NEUTROPHIL # (test code=NT#) 10.11 K/mm3 1.8-7.7 IMMATURE GRANULOCYTE # (test code=IG#) 0.03 x10 3/uL 0-0.03 LYMPHOCYTE # (test code=LY#) 1.33 K/mm3 1.0-5.0 MONOCYTE # (test code=MO#) 0.99 K/mm3 0-0.8 EOSINOPHIL # (test code=EO#) 0.01 K/mm3 0.0-0.5 BASOPHIL # (test code=BA#) 0.05 K/mm3 0.0-0.2 NUCLEATED RBC # (test code=NRBC#) 0.00 K/mm3 0.0-0.1 MANUAL DIFF REQUIRED (test code=MDIFF) YES STAIN ACCEPTABILITY (test code=STN ACCEPTABLE) STAIN ACCEPTABLE TOTAL CELLS COUNTED (test code=TCC) 115 #CELLS SEGMENTED NEUTROPHILS (test code=SEG) 79.1 % 39-69 BAND NEUTROPHIL (test code=BAND) 0 % 0-10 LYMPHOCYTE (test code=LYMPH) 13.9 % 25-55 REACTIVE LYMPH (test code=RELYMPH) 0 % MONOCYTE (test code=MON) 7.0 % 0-10 EOSINOPHIL (test code=EOS) 0 % 0.0-5.0 BASOPHIL (test code=BASO) 0 % 0-1.0 METAMYELOCYTE (test code=META) 0 % 0-0 MYELOCYTE (test code=MYELO) 0 % 0.0-0.0 PROMYELOCYTE (test code=PROM) 0 % 0-0 POIKILOCYTOSIS (test code=POIK) 3+ CRENATED CELLS (test code=CREN) 3+ PLATELET ESTIMATE (test code=PLTEST) DECREASED PLATELET MORPHOLOGY (test code=PLTMORPH) NORMAL IMMATURE FORMS (test code=IMMAT) 0 % 0-0 BASIC METABOLIC [id number] 04:15:00* Test Item Value Reference Range Comments SODIUM (test code=NA) 145 mmol/L 136-145 POTASSIUM (test code=K) 3.6 mmol/L 3.5-5.1 CHLORIDE (test code=CL) 107.0 mmol/L 98-107 CARBON DIOXIDE (test code=CO2) 31.0 mmol/L 21-32 ANION GAP (test code=GAP) 10.6 10-20 GLUCOSE (test code=GLU) 143 mg/dL 74-106 BLOOD UREA NITROGEN (test code=BUN) 49 mg/dL 7-18 GLOMERULAR FILTRATION RATE (test code=GFR) 39 mL/min >=60 Estimated GFR by using Modified MDRD formula.Chronic kidney disease is defined as either kidney damageor GFR <60 mL/min/1.73 m2 for >3 months. CREATININE (test code=CREAT) 1.70 mg/dL 0.7-1.3 BUN/CREATININE RATIO (test code=BUN/CREA) 28.8 10-20 CALCIUM (test code=CA) 8.8 mg/dL 8.5-10.1 [id number] 04:15:00* Test Item Value Reference Range Comments PHOSPHORUS (test code=PHOS) 3.7 mg/dL 2.5-4.9 [id number] 04:15:00* Test Item Value Reference Range Comments MAGNESIUM (test code=MAG) 2.6 mg/dL 1.8-2.4 CALCIUM [id number] 04:15:00* Test Item Value Reference Range Comments CALCIUM IONIZED (test code=SHANNAN) 1.18 mmol/L 1.12-1.32 B-TYPE NATRIURETIC [id number] 04:14:00* Test Item Value Reference Range Comments B-TYPE NATRIURETIC PEPTIDE (test code=BNP) 377.93 pgram/mL 0-100 BASIC METABOLIC [id number] 03:59:00* Test Item Value Reference Range Comments SODIUM (test code=NA) 145 mmol/L 136-145 POTASSIUM (test code=K) 3.6 mmol/L 3.5-5.1 CHLORIDE (test code=CL) 107.0 mmol/L 98-107 CARBON DIOXIDE (test code=CO2) 31.0 mmol/L 21-32 ANION GAP (test code=GAP) 10.6 10-20 GLUCOSE (test code=GLU) 143 mg/dL 74-106 BLOOD UREA NITROGEN (test code=BUN) 49 mg/dL 7-18 GLOMERULAR FILTRATION RATE (test code=GFR) 39 mL/min >=60 Estimated GFR by using Modified MDRD formula.Chronic kidney disease is defined as either kidney damageor GFR <60 mL/min/1.73 m2 for >3 months. CREATININE (test code=CREAT) 1.70 mg/dL 0.7-1.3 BUN/CREATININE RATIO (test code=BUN/CREA) 28.8 10-20 CALCIUM (test code=CA) 8.8 mg/dL 8.5-10.1 [id number] 03:59:00* Test Item Value Reference Range Comments PHOSPHORUS (test code=PHOS) 3.7 mg/dL 2.5-4.9 [id number] 03:59:00* Test Item Value Reference Range Comments MAGNESIUM (test code=MAG) 2.6 mg/dL 1.8-2.4 CALCIUM [id number] 03:59:00* Test Item Value Reference Range Comments CALCIUM IONIZED (test code=SHANNAN) mmol/L 1.12-1.32 THROMBOPLASTIN TIME [id number] 03:58:00* Test Item Value Reference Range Comments THROMBOPLASTIN TIME PARTIAL (test code=PTT) 56.8 seconds 25.0-36.5 IS PATIENT ON ANTICOAGULANTS? YLIST ANTICOAGULANTS HEPARINBASIC METABOLIC [id number] 03:51:00* Test Item Value Reference Range Comments SODIUM (test code=NA) 145 mmol/L 136-145 POTASSIUM (test code=K) 3.6 mmol/L 3.5-5.1 CHLORIDE (test code=CL) 107.0 mmol/L 98-107 CARBON DIOXIDE (test code=CO2) mmol/L 21-32 ANION GAP (test code=GAP) 10-20 GLUCOSE (test code=GLU) mg/dL 74-106 BLOOD UREA NITROGEN (test code=BUN) mg/dL 7-18 GLOMERULAR FILTRATION RATE (test code=GFR) mL/min >=60 CREATININE (test code=CREAT) mg/dL 0.7-1.3 BUN/CREATININE RATIO (test code=BUN/CREA) 10-20 CALCIUM (test code=CA) mg/dL 8.5-10.1 [id number] 03:51:00* Test Item Value Reference Range Comments PHOSPHORUS (test code=PHOS) mg/dL 2.5-4.9 [id number] 03:51:00* Test Item Value Reference Range Comments MAGNESIUM (test code=MAG) mg/dL 1.8-2.4 CALCIUM [id number] 03:51:00* Test Item Value Reference Range Comments CALCIUM IONIZED (test code=SHANNAN) mmol/L 1.12-1.32 CBC W/MANUAL [id number] 03:24:00* Test Item Value Reference Range Comments WHITE BLOOD CELL (test code=WBC) 12.5 K/mm3 4.5-12.5 RED BLOOD CELL (test code=RBC) 5.93 mill/mm3 4.0-5.8 HEMOGLOBIN (test code=HGB) 16.0 gram/dL 13.0-17.5 HEMATOCRIT (test code=HCT) 50.2 % 42.0-52.0 MEAN CELL VOLUME (test code=MCV) 84.7 fL 80-98 MEAN CELL HGB (test code=MCH) 27.0 picogram 27.0-33.0 MEAN CELL HGB CONCETRATION (test code=MCHC) 31.9 gram/dL 33.0-36.0 RED CELL DISTRIBUTION WIDTH (test code=RDW) 13.7 % 11.6-16.2 RED CELL DISTRIBUTION WIDTH SD (test code=RDW-SD) 42.2 fL 37.0-51.0 PLATELET COUNT (test code=PLT) 131 K/mm3 150-450 MEAN PLATELET VOLUME (test code=MPV) 12.1 fL 6.7-11.0 IMMATURE GRANULOCYTE % (test code=IG%) 0.2 % 0.0-5.0 NUCLEATED RBC % (test code=NRBC%) 0.0 % 0-0 NEUTROPHIL # (test code=NT#) 10.11 K/mm3 1.8-7.7 IMMATURE GRANULOCYTE # (test code=IG#) 0.03 x10 3/uL 0-0.03 LYMPHOCYTE # (test code=LY#) 1.33 K/mm3 1.0-5.0 MONOCYTE # (test code=MO#) 0.99 K/mm3 0-0.8 EOSINOPHIL # (test code=EO#) 0.01 K/mm3 0.0-0.5 BASOPHIL # (test code=BA#) 0.05 K/mm3 0.0-0.2 NUCLEATED RBC # (test code=NRBC#) 0.00 K/mm3 0.0-0.1 MANUAL DIFF REQUIRED (test code=MDIFF) YES STAIN ACCEPTABILITY (test code=STN ACCEPTABLE) TOTAL CELLS COUNTED (test code=TCC) #CELLS SEGMENTED NEUTROPHILS (test code=SEG) % 39-69 LYMPHOCYTE (test code=LYMPH) % 25-55 MONOCYTE (test code=MON) % 0-10 EOSINOPHIL (test code=EOS) % 0.0-5.0 CABOT RINGS (test code=CAB) MORPHOLOGY COMMENT (test code=MOC) PLATELET ESTIMATE (test code=PLTEST) PLATELET MORPHOLOGY (test code=PLTMORPH) CBC W/MANUAL [id number] 03:24:00* Test Item Value Reference Range Comments WHITE BLOOD CELL (test code=WBC) 12.5 K/mm3 4.5-12.5 RED BLOOD CELL (test code=RBC) 5.93 mill/mm3 4.0-5.8 HEMOGLOBIN (test code=HGB) 16.0 gram/dL 13.0-17.5 HEMATOCRIT (test code=HCT) 50.2 % 42.0-52.0 MEAN CELL VOLUME (test code=MCV) 84.7 fL 80-98 MEAN CELL HGB (test code=MCH) 27.0 picogram 27.0-33.0 MEAN CELL HGB CONCETRATION (test code=MCHC) 31.9 gram/dL 33.0-36.0 RED CELL DISTRIBUTION WIDTH (test code=RDW) 13.7 % 11.6-16.2 RED CELL DISTRIBUTION WIDTH SD (test code=RDW-SD) 42.2 fL 37.0-51.0 PLATELET COUNT (test code=PLT) 131 K/mm3 150-450 MEAN PLATELET VOLUME (test code=MPV) 12.1 fL 6.7-11.0 IMMATURE GRANULOCYTE % (test code=IG%) 0.2 % 0.0-5.0 NUCLEATED RBC % (test code=NRBC%) 0.0 % 0-0 NEUTROPHIL # (test code=NT#) 10.11 K/mm3 1.8-7.7 IMMATURE GRANULOCYTE # (test code=IG#) 0.03 x10 3/uL 0-0.03 LYMPHOCYTE # (test code=LY#) 1.33 K/mm3 1.0-5.0 MONOCYTE # (test code=MO#) 0.99 K/mm3 0-0.8 EOSINOPHIL # (test code=EO#) 0.01 K/mm3 0.0-0.5 BASOPHIL # (test code=BA#) 0.05 K/mm3 0.0-0.2 NUCLEATED RBC # (test code=NRBC#) 0.00 K/mm3 0.0-0.1 MANUAL DIFF REQUIRED (test code=MDIFF) YES STAIN ACCEPTABILITY (test code=STN ACCEPTABLE) TOTAL CELLS COUNTED (test code=TCC) #CELLS SEGMENTED NEUTROPHILS (test code=SEG) % 39-69 LYMPHOCYTE (test code=LYMPH) % 25-55 MONOCYTE (test code=MON) % 0-10 EOSINOPHIL (test code=EOS) % 0.0-5.0 CABOT RINGS (test code=CAB) MORPHOLOGY COMMENT (test code=MOC) PLATELET ESTIMATE (test code=PLTEST) PLATELET MORPHOLOGY (test code=PLTMORPH) CBC W/MANUAL [id number] 03:24:00* Test Item Value Reference Range Comments WHITE BLOOD CELL (test code=WBC) 12.5 K/mm3 4.5-12.5 RED BLOOD CELL (test code=RBC) 5.93 mill/mm3 4.0-5.8 HEMOGLOBIN (test code=HGB) 16.0 gram/dL 13.0-17.5 HEMATOCRIT (test code=HCT) 50.2 % 42.0-52.0 MEAN CELL VOLUME (test code=MCV) 84.7 fL 80-98 MEAN CELL HGB (test code=MCH) 27.0 picogram 27.0-33.0 MEAN CELL HGB CONCETRATION (test code=MCHC) 31.9 gram/dL 33.0-36.0 RED CELL DISTRIBUTION WIDTH (test code=RDW) 13.7 % 11.6-16.2 RED CELL DISTRIBUTION WIDTH SD (test code=RDW-SD) 42.2 fL 37.0-51.0 PLATELET COUNT (test code=PLT) 131 K/mm3 150-450 MEAN PLATELET VOLUME (test code=MPV) 12.1 fL 6.7-11.0 IMMATURE GRANULOCYTE % (test code=IG%) 0.2 % 0.0-5.0 NUCLEATED RBC % (test code=NRBC%) 0.0 % 0-0 NEUTROPHIL # (test code=NT#) 10.11 K/mm3 1.8-7.7 IMMATURE GRANULOCYTE # (test code=IG#) 0.03 x10 3/uL 0-0.03 LYMPHOCYTE # (test code=LY#) 1.33 K/mm3 1.0-5.0 MONOCYTE # (test code=MO#) 0.99 K/mm3 0-0.8 EOSINOPHIL # (test code=EO#) 0.01 K/mm3 0.0-0.5 BASOPHIL # (test code=BA#) 0.05 K/mm3 0.0-0.2 NUCLEATED RBC # (test code=NRBC#) 0.00 K/mm3 0.0-0.1 MANUAL DIFF REQUIRED (test code=MDIFF) YES STAIN ACCEPTABILITY (test code=STN ACCEPTABLE) TOTAL CELLS COUNTED (test code=TCC) #CELLS SEGMENTED NEUTROPHILS (test code=SEG) % 39-69 LYMPHOCYTE (test code=LYMPH) % 25-55 MONOCYTE (test code=MON) % 0-10 EOSINOPHIL (test code=EOS) % 0.0-5.0 MORPHOLOGY COMMENT (test code=MOC) PLATELET ESTIMATE (test code=PLTEST) PLATELET MORPHOLOGY (test code=PLTMORPH) CBC W/MANUAL [id number] 03:24:00* Test Item Value Reference Range Comments WHITE BLOOD CELL (test code=WBC) 12.5 K/mm3 4.5-12.5 RED BLOOD CELL (test code=RBC) 5.93 mill/mm3 4.0-5.8 HEMOGLOBIN (test code=HGB) 16.0 gram/dL 13.0-17.5 HEMATOCRIT (test code=HCT) 50.2 % 42.0-52.0 MEAN CELL VOLUME (test code=MCV) 84.7 fL 80-98 MEAN CELL HGB (test code=MCH) 27.0 picogram 27.0-33.0 MEAN CELL HGB CONCETRATION (test code=MCHC) 31.9 gram/dL 33.0-36.0 RED CELL DISTRIBUTION WIDTH (test code=RDW) 13.7 % 11.6-16.2 RED CELL DISTRIBUTION WIDTH SD (test code=RDW-SD) 42.2 fL 37.0-51.0 PLATELET COUNT (test code=PLT) 131 K/mm3 150-450 MEAN PLATELET VOLUME (test code=MPV) 12.1 fL 6.7-11.0 IMMATURE GRANULOCYTE % (test code=IG%) 0.2 % 0.0-5.0 NUCLEATED RBC % (test code=NRBC%) 0.0 % 0-0 NEUTROPHIL # (test code=NT#) 10.11 K/mm3 1.8-7.7 IMMATURE GRANULOCYTE # (test code=IG#) 0.03 x10 3/uL 0-0.03 LYMPHOCYTE # (test code=LY#) 1.33 K/mm3 1.0-5.0 MONOCYTE # (test code=MO#) 0.99 K/mm3 0-0.8 EOSINOPHIL # (test code=EO#) 0.01 K/mm3 0.0-0.5 BASOPHIL # (test code=BA#) 0.05 K/mm3 0.0-0.2 NUCLEATED RBC # (test code=NRBC#) 0.00 K/mm3 0.0-0.1 MANUAL DIFF REQUIRED (test code=MDIFF) YES STAIN ACCEPTABILITY (test code=STN ACCEPTABLE) TOTAL CELLS COUNTED (test code=TCC) #CELLS SEGMENTED NEUTROPHILS (test code=SEG) % 39-69 LYMPHOCYTE (test code=LYMPH) % 25-55 MONOCYTE (test code=MON) % 0-10 MORPHOLOGY COMMENT (test code=MOC) PLATELET ESTIMATE (test code=PLTEST) PLATELET MORPHOLOGY (test code=PLTMORPH) CBC W/MANUAL [id number] 03:24:00* Test Item Value Reference Range Comments WHITE BLOOD CELL (test code=WBC) 12.5 K/mm3 4.5-12.5 RED BLOOD CELL (test code=RBC) 5.93 mill/mm3 4.0-5.8 HEMOGLOBIN (test code=HGB) 16.0 gram/dL 13.0-17.5 HEMATOCRIT (test code=HCT) 50.2 % 42.0-52.0 MEAN CELL VOLUME (test code=MCV) 84.7 fL 80-98 MEAN CELL HGB (test code=MCH) 27.0 picogram 27.0-33.0 MEAN CELL HGB CONCETRATION (test code=MCHC) 31.9 gram/dL 33.0-36.0 RED CELL DISTRIBUTION WIDTH (test code=RDW) 13.7 % 11.6-16.2 RED CELL DISTRIBUTION WIDTH SD (test code=RDW-SD) 42.2 fL 37.0-51.0 PLATELET COUNT (test code=PLT) 131 K/mm3 150-450 MEAN PLATELET VOLUME (test code=MPV) 12.1 fL 6.7-11.0 IMMATURE GRANULOCYTE % (test code=IG%) 0.2 % 0.0-5.0 NUCLEATED RBC % (test code=NRBC%) 0.0 % 0-0 NEUTROPHIL # (test code=NT#) 10.11 K/mm3 1.8-7.7 IMMATURE GRANULOCYTE # (test code=IG#) 0.03 x10 3/uL 0-0.03 LYMPHOCYTE # (test code=LY#) 1.33 K/mm3 1.0-5.0 MONOCYTE # (test code=MO#) 0.99 K/mm3 0-0.8 EOSINOPHIL # (test code=EO#) 0.01 K/mm3 0.0-0.5 BASOPHIL # (test code=BA#) 0.05 K/mm3 0.0-0.2 NUCLEATED RBC # (test code=NRBC#) 0.00 K/mm3 0.0-0.1 MANUAL DIFF REQUIRED (test code=MDIFF) YES STAIN ACCEPTABILITY (test code=STN ACCEPTABLE) TOTAL CELLS COUNTED (test code=TCC) #CELLS SEGMENTED NEUTROPHILS (test code=SEG) % 39-69 LYMPHOCYTE (test code=LYMPH) % 25-55 MONOCYTE (test code=MON) % 0-10 EOSINOPHIL (test code=EOS) % 0.0-5.0 CABOT RINGS (test code=CAB) MORPHOLOGY COMMENT (test code=MOC) PLATELET ESTIMATE (test code=PLTEST) PLATELET MORPHOLOGY (test code=PLTMORPH) CBC W/AUTO [id number] 03:12:00* Test Item Value Reference Range Comments WHITE BLOOD CELL (test code=WBC) K/mm3 4.5-12.5 RED BLOOD CELL (test code=RBC) mill/mm3 4.0-5.8 HEMOGLOBIN (test code=HGB) 16.0 gram/dL 13.0-17.5 HEMATOCRIT (test code=HCT) 50.2 % 42.0-52.0 MEAN CELL VOLUME (test code=MCV) fL 80-98 MEAN CELL HGB (test code=MCH) picogram 27.0-33.0 MEAN CELL HGB CONCETRATION (test code=MCHC) gram/dL 33.0-36.0 RED CELL DISTRIBUTION WIDTH (test code=RDW) % 11.6-16.2 RED CELL DISTRIBUTION WIDTH SD (test code=RDW-SD) fL 37.0-51.0 PLATELET COUNT (test code=PLT) K/mm3 150-450 MEAN PLATELET VOLUME (test code=MPV) fL 6.7-11.0 NEUTROPHIL % (test code=NT%) % 39.0-69.0 IMMATURE GRANULOCYTE % (test code=IG%) % 0.0-5.0 LYMPHOCYTE % (test code=LY%) % 25.0-55.0 MONOCYTE % (test code=MO%) % 0.0-10.0 EOSINOPHIL % (test code=EO%) % 0.0-5.0 BASOPHIL % (test code=BA%) % 0.0-1.0 NEUTROPHIL # (test code=NT#) K/mm3 1.8-7.7 LYMPHOCYTE # (test code=LY#) K/mm3 1.0-5.0 MONOCYTE # (test code=MO#) K/mm3 0-0.8 EOSINOPHIL # (test code=EO#) K/mm3 0.0-0.5 BASOPHIL # (test code=BA#) K/mm3 0.0-0.2 THROMBOPLASTIN TIME [id number] 20:04:00* Test Item Value Reference Range Comments THROMBOPLASTIN TIME PARTIAL (test code=PTT) 126.6 seconds 25.0-36.5 Results called to [id number] by DARIO 08/25/19 2000Critical results verified and read back by Nurse? Y IS PATIENT ON ANTICOAGULANTS? YLIST ANTICOAGULANTS [id number] 12:53:00* Test Item Value Reference Range Comments GLUBED (test code=GLUBED) 141 mg/dL 74-106 Performed by certified blanching machine operator at [facility] ARTERIAL BLOOD [id number] 12:40:00* Test Item Value Reference Range Comments ARTERIAL BLOOD GAS PH (test code=PHA) 7.51 7.35-7.45 ARTERIAL BLOOD GAS PCO2 (test code=PCO2A) 32.8 mm Hg 35-45 ARTERIAL BLOOD GAS PO2 (test code=PO2A) 58.5 mmHg 80-100 BICARBONATE TOTAL HCO3 (test code=HCO3) 25.6 mmol/L 23.0-27.0 BASE EXCESS (test code=MEHUL) 3.4 mmol/L -3.0-5.0 ABG O2 SATURATION (test code=SATA) 91.8 % 90.0-98.0 ABG TYPE (test code=TYPEA) Arterial FIO2 (test code=FIO2A) 45.0 ABG SITE (test code=SITEA) Lt RADIAL ARTERY MODIFIED ALLENS (test code=MODALL) Yes CHECK PERFORMED HEMATOCRIT (test code=HCT/ABG) 53 % 42-52 TOTAL HGB (test code=THB) 18.1 gram/dL 13.0-17.5 HGB O2 SAT (test code=HBOSAT) 90.9 % 94.00-98.00 CARBOXYHEMOGLOBIN (test code=HOHGBT) 0.7 %totalHg 0.5-1.5 METHEMOGLOBIN (test code=METHGB) 0.3 % 0.0-1.50 O2 CONTENT (test code=O2CT) 23.1 % vol 18.0-22.0 THROMBOPLASTIN TIME [id number] 10:54:00* Test Item Value Reference Range Comments THROMBOPLASTIN TIME PARTIAL (test code=PTT) 25.2 seconds 25.0-36.5 IS PATIENT ON ANTICOAGULANTS? YLIST ANTICOAGULANTS HEPARINHEMATOCRIT 2019-08-25 10:43:00* Test Item Value Reference Range Comments HEMATOCRIT (test code=HCT) 51.2 % 42.0-52.0 PLATELET [id number] 10:43:00* Test Item Value Reference Range Comments PLATELET COUNT (test code=PLT) 128 K/mm3 150-450 - XR CHEST 1 [id number] 06:55:00 FAX: Hung Laura [place]: B St: ADM FAX: Davie Allen [phone] FAX: Atul Maynard MD [phone] Name: MULUGETA DOTSON [facility] : 1945 Age/S: 73/M [address] [facility] Unit #: [id number] Loc: V.S07 [place]IM[place] [address] Phys: Hung Laura Acct: [id number] Dis Date: Status: ADM IN [facility] #: [phone] Exam Date: 08/25/2019 0637 FAX #: [phone] Reason: respiratory distress EXAMS: CPT CODE: [id number] XR CHEST 1 V 00033 AFTER HOURS SE RVICE ON: 08/25/2019 6:54 AM AP Portable Chest Locati on Code M12 HISTORY: respiratory distress FINDINGS: There is mild pulmonary vascular congestion. There is an NG tube in the stomach. There are no pleural effusions. There is no pneumo thorax. Cardiac silhouette and mediastinum appear within normal limits. IMPRESSION: Development of mild central pulmon mahamed vascular congestion/volume overload compared to 08/24/2019. at 0655 Reported and signed by: Phil Iyer M.D. CC: Hung Laura; Davie Christina; Atul Maynard MD Technologist: RENZO PRYOR JR Trnscrd Date/Time/By: 08/25/2019 (0655) : By: [email or web address] Orig Print D/T: S: 08/25/2019 (0611) PAGE 1 Signed Report ARTERIAL BLOOD GAS 2019-08-25 06:01:00* Test Item Value Reference Range Comments ARTERIAL BLOOD GAS PH (test code=PHA) 7.46 7.35-7.45 ARTERIAL BLOOD GAS PCO2 (test code=PCO2A) 36.6 mm Hg 35-45 ARTERIAL BLOOD GAS PO2 (test code=PO2A) 52.0 mmHg 80-100 BICARBONATE TOTAL HCO3 (test code=HCO3) 25.3 mmol/L 23.0-27.0 BASE EXCESS (test code=MEHUL) 1.7 mmol/L -3.0-5.0 ABG O2 SATURATION (test code=SATA) 87.7 % 90.0-98.0 ABG TYPE (test code=TYPEA) Arterial FIO2 (test code=FIO2A) 40.0 ABG PEEP (test code=PEEPA) 5.0 cmH2O ABG SITE (test code=SITEA) Lt RADIAL ARTERY MODIFIED ALLENS (test code=MODALL) Yes CHECK PERFORMED SODIUM (test code=NA/ABG) 141.4 mEq/L 135-148 POTASSIUM (test code=K/ABG) 4.4 mEq/L 3.5-4.5 CHLORIDE (test code=CL/ABG) 103 mEq/L 98-106 GLUCOSE (test code=GLU/ABG) 145 mg/dL 74-99 HEMATOCRIT (test code=HCT/ABG) 50 % 42-52 IONIZED CALCIUM (test code=CAIABG) 1.13 mmol/L 1.1-1.37 TOTAL HGB (test code=THB) 17.0 gram/dL 13.0-17.5 HGB O2 SAT (test code=HBOSAT) 86.8 % 94.00-98.00 CARBOXYHEMOGLOBIN (test code=HOHGBT) 0.7 %totalHg 0.5-1.5 METHEMOGLOBIN (test code=METHGB) 0.3 % 0.0-1.50 O2 CONTENT (test code=O2CT) 20.7 % vol 18.0-22.0 CBC W/MANUAL [id number] 04:42:00* Test Item Value Reference Range Comments WHITE BLOOD CELL (test code=WBC) 15.6 K/mm3 4.5-12.5 RED BLOOD CELL (test code=RBC) 6.10 mill/mm3 4.0-5.8 HEMOGLOBIN (test code=HGB) 16.8 gram/dL 13.0-17.5 HEMATOCRIT (test code=HCT) 51.5 % 42.0-52.0 MEAN CELL VOLUME (test code=MCV) 84.4 fL 80-98 MEAN CELL HGB (test code=MCH) 27.5 picogram 27.0-33.0 MEAN CELL HGB CONCETRATION (test code=MCHC) 32.6 gram/dL 33.0-36.0 RED CELL DISTRIBUTION WIDTH (test code=RDW) 13.3 % 11.6-16.2 RED CELL DISTRIBUTION WIDTH SD (test code=RDW-SD) 41.1 fL 37.0-51.0 PLATELET COUNT (test code=PLT) 141 K/mm3 150-450 MEAN PLATELET VOLUME (test code=MPV) 11.4 fL 6.7-11.0 IMMATURE GRANULOCYTE % (test code=IG%) 0.4 % 0.0-5.0 NUCLEATED RBC % (test code=NRBC%) 0.0 % 0-0 NEUTROPHIL # (test code=NT#) 13.02 K/mm3 1.8-7.7 IMMATURE GRANULOCYTE # (test code=IG#) 0.07 x10 3/uL 0-0.03 LYMPHOCYTE # (test code=LY#) 1.09 K/mm3 1.0-5.0 MONOCYTE # (test code=MO#) 1.44 K/mm3 0-0.8 EOSINOPHIL # (test code=EO#) 0.00 K/mm3 0.0-0.5 BASOPHIL # (test code=BA#) 0.02 K/mm3 0.0-0.2 NUCLEATED RBC # (test code=NRBC#) 0.00 K/mm3 0.0-0.1 MANUAL DIFF REQUIRED (test code=MDIFF) YES STAIN ACCEPTABILITY (test code=STN ACCEPTABLE) STAIN ACCEPTABLE TOTAL CELLS COUNTED (test code=TCC) 115 #CELLS SEGMENTED NEUTROPHILS (test code=SEG) 84.3 % 39-69 BAND NEUTROPHIL (test code=BAND) 1.7 % 0-10 LYMPHOCYTE (test code=LYMPH) 9.6 % 25-55 REACTIVE LYMPH (test code=RELYMPH) 0.9 % MONOCYTE (test code=MON) 3.5 % 0-10 EOSINOPHIL (test code=EOS) 0 % 0.0-5.0 BASOPHIL (test code=BASO) 0 % 0-1.0 METAMYELOCYTE (test code=META) 0 % 0-0 MYELOCYTE (test code=MYELO) 0 % 0.0-0.0 PROMYELOCYTE (test code=PROM) 0 % 0-0 POIKILOCYTOSIS (test code=POIK) 1+ CRENATED CELLS (test code=CREN) 1+ PLATELET ESTIMATE (test code=PLTEST) ADEQUATE PLATELET MORPHOLOGY (test code=PLTMORPH) NORMAL IMMATURE FORMS (test code=IMMAT) 0 % 0-0 REDRAW OF CLOTTED SPECIMEN [id number] W/MANUAL [id number] 04:17:00* Test Item Value Reference Range Comments WHITE BLOOD CELL (test code=WBC) 15.6 K/mm3 4.5-12.5 RED BLOOD CELL (test code=RBC) 6.10 mill/mm3 4.0-5.8 HEMOGLOBIN (test code=HGB) 16.8 gram/dL 13.0-17.5 HEMATOCRIT (test code=HCT) 51.5 % 42.0-52.0 MEAN CELL VOLUME (test code=MCV) 84.4 fL 80-98 MEAN CELL HGB (test code=MCH) 27.5 picogram 27.0-33.0 MEAN CELL HGB CONCETRATION (test code=MCHC) 32.6 gram/dL 33.0-36.0 RED CELL DISTRIBUTION WIDTH (test code=RDW) 13.3 % 11.6-16.2 RED CELL DISTRIBUTION WIDTH SD (test code=RDW-SD) 41.1 fL 37.0-51.0 PLATELET COUNT (test code=PLT) 141 K/mm3 150-450 MEAN PLATELET VOLUME (test code=MPV) 11.4 fL 6.7-11.0 IMMATURE GRANULOCYTE % (test code=IG%) 0.4 % 0.0-5.0 NUCLEATED RBC % (test code=NRBC%) 0.0 % 0-0 NEUTROPHIL # (test code=NT#) 13.02 K/mm3 1.8-7.7 IMMATURE GRANULOCYTE # (test code=IG#) 0.07 x10 3/uL 0-0.03 LYMPHOCYTE # (test code=LY#) 1.09 K/mm3 1.0-5.0 MONOCYTE # (test code=MO#) 1.44 K/mm3 0-0.8 EOSINOPHIL # (test code=EO#) 0.00 K/mm3 0.0-0.5 BASOPHIL # (test code=BA#) 0.02 K/mm3 0.0-0.2 NUCLEATED RBC # (test code=NRBC#) 0.00 K/mm3 0.0-0.1 MANUAL DIFF REQUIRED (test code=MDIFF) YES STAIN ACCEPTABILITY (test code=STN ACCEPTABLE) TOTAL CELLS COUNTED (test code=TCC) #CELLS SEGMENTED NEUTROPHILS (test code=SEG) % 39-69 LYMPHOCYTE (test code=LYMPH) % 25-55 MONOCYTE (test code=MON) % 0-10 EOSINOPHIL (test code=EOS) % 0.0-5.0 CABOT RINGS (test code=CAB) MORPHOLOGY COMMENT (test code=MOC) PLATELET ESTIMATE (test code=PLTEST) PLATELET MORPHOLOGY (test code=PLTMORPH) REDRAW OF CLOTTED SPECIMEN [id number] W/MANUAL [id number] 04:17:00* Test Item Value Reference Range Comments WHITE BLOOD CELL (test code=WBC) 15.6 K/mm3 4.5-12.5 RED BLOOD CELL (test code=RBC) 6.10 mill/mm3 4.0-5.8 HEMOGLOBIN (test code=HGB) 16.8 gram/dL 13.0-17.5 HEMATOCRIT (test code=HCT) 51.5 % 42.0-52.0 MEAN CELL VOLUME (test code=MCV) 84.4 fL 80-98 MEAN CELL HGB (test code=MCH) 27.5 picogram 27.0-33.0 MEAN CELL HGB CONCETRATION (test code=MCHC) 32.6 gram/dL 33.0-36.0 RED CELL DISTRIBUTION WIDTH (test code=RDW) 13.3 % 11.6-16.2 RED CELL DISTRIBUTION WIDTH SD (test code=RDW-SD) 41.1 fL 37.0-51.0 PLATELET COUNT (test code=PLT) 141 K/mm3 150-450 MEAN PLATELET VOLUME (test code=MPV) 11.4 fL 6.7-11.0 IMMATURE GRANULOCYTE % (test code=IG%) 0.4 % 0.0-5.0 NUCLEATED RBC % (test code=NRBC%) 0.0 % 0-0 NEUTROPHIL # (test code=NT#) 13.02 K/mm3 1.8-7.7 IMMATURE GRANULOCYTE # (test code=IG#) 0.07 x10 3/uL 0-0.03 LYMPHOCYTE # (test code=LY#) 1.09 K/mm3 1.0-5.0 MONOCYTE # (test code=MO#) 1.44 K/mm3 0-0.8 EOSINOPHIL # (test code=EO#) 0.00 K/mm3 0.0-0.5 BASOPHIL # (test code=BA#) 0.02 K/mm3 0.0-0.2 NUCLEATED RBC # (test code=NRBC#) 0.00 K/mm3 0.0-0.1 MANUAL DIFF REQUIRED (test code=MDIFF) YES STAIN ACCEPTABILITY (test code=STN ACCEPTABLE) TOTAL CELLS COUNTED (test code=TCC) #CELLS SEGMENTED NEUTROPHILS (test code=SEG) % 39-69 LYMPHOCYTE (test code=LYMPH) % 25-55 MONOCYTE (test code=MON) % 0-10 EOSINOPHIL (test code=EOS) % 0.0-5.0 MORPHOLOGY COMMENT (test code=MOC) PLATELET ESTIMATE (test code=PLTEST) PLATELET MORPHOLOGY (test code=PLTMORPH) REDRAW OF CLOTTED SPECIMEN [id number] W/MANUAL [id number] 04:17:00* Test Item Value Reference Range Comments WHITE BLOOD CELL (test code=WBC) 15.6 K/mm3 4.5-12.5 RED BLOOD CELL (test code=RBC) 6.10 mill/mm3 4.0-5.8 HEMOGLOBIN (test code=HGB) 16.8 gram/dL 13.0-17.5 HEMATOCRIT (test code=HCT) 51.5 % 42.0-52.0 MEAN CELL VOLUME (test code=MCV) 84.4 fL 80-98 MEAN CELL HGB (test code=MCH) 27.5 picogram 27.0-33.0 MEAN CELL HGB CONCETRATION (test code=MCHC) 32.6 gram/dL 33.0-36.0 RED CELL DISTRIBUTION WIDTH (test code=RDW) 13.3 % 11.6-16.2 RED CELL DISTRIBUTION WIDTH SD (test code=RDW-SD) 41.1 fL 37.0-51.0 PLATELET COUNT (test code=PLT) 141 K/mm3 150-450 MEAN PLATELET VOLUME (test code=MPV) 11.4 fL 6.7-11.0 IMMATURE GRANULOCYTE % (test code=IG%) 0.4 % 0.0-5.0 NUCLEATED RBC % (test code=NRBC%) 0.0 % 0-0 NEUTROPHIL # (test code=NT#) 13.02 K/mm3 1.8-7.7 IMMATURE GRANULOCYTE # (test code=IG#) 0.07 x10 3/uL 0-0.03 LYMPHOCYTE # (test code=LY#) 1.09 K/mm3 1.0-5.0 MONOCYTE # (test code=MO#) 1.44 K/mm3 0-0.8 EOSINOPHIL # (test code=EO#) 0.00 K/mm3 0.0-0.5 BASOPHIL # (test code=BA#) 0.02 K/mm3 0.0-0.2 NUCLEATED RBC # (test code=NRBC#) 0.00 K/mm3 0.0-0.1 MANUAL DIFF REQUIRED (test code=MDIFF) YES STAIN ACCEPTABILITY (test code=STN ACCEPTABLE) TOTAL CELLS COUNTED (test code=TCC) #CELLS SEGMENTED NEUTROPHILS (test code=SEG) % 39-69 LYMPHOCYTE (test code=LYMPH) % 25-55 MONOCYTE (test code=MON) % 0-10 MORPHOLOGY COMMENT (test code=MOC) PLATELET ESTIMATE (test code=PLTEST) PLATELET MORPHOLOGY (test code=PLTMORPH) REDRAW OF CLOTTED SPECIMEN [id number] W/MANUAL [id number] 04:16:00* Test Item Value Reference Range Comments WHITE BLOOD CELL (test code=WBC) 15.6 K/mm3 4.5-12.5 RED BLOOD CELL (test code=RBC) 6.10 mill/mm3 4.0-5.8 HEMOGLOBIN (test code=HGB) 16.8 gram/dL 13.0-17.5 HEMATOCRIT (test code=HCT) 51.5 % 42.0-52.0 MEAN CELL VOLUME (test code=MCV) 84.4 fL 80-98 MEAN CELL HGB (test code=MCH) 27.5 picogram 27.0-33.0 MEAN CELL HGB CONCETRATION (test code=MCHC) 32.6 gram/dL 33.0-36.0 RED CELL DISTRIBUTION WIDTH (test code=RDW) 13.3 % 11.6-16.2 RED CELL DISTRIBUTION WIDTH SD (test code=RDW-SD) 41.1 fL 37.0-51.0 PLATELET COUNT (test code=PLT) 141 K/mm3 150-450 MEAN PLATELET VOLUME (test code=MPV) 11.4 fL 6.7-11.0 IMMATURE GRANULOCYTE % (test code=IG%) 0.4 % 0.0-5.0 NUCLEATED RBC % (test code=NRBC%) 0.0 % 0-0 NEUTROPHIL # (test code=NT#) 13.02 K/mm3 1.8-7.7 IMMATURE GRANULOCYTE # (test code=IG#) 0.07 x10 3/uL 0-0.03 LYMPHOCYTE # (test code=LY#) 1.09 K/mm3 1.0-5.0 MONOCYTE # (test code=MO#) 1.44 K/mm3 0-0.8 EOSINOPHIL # (test code=EO#) 0.00 K/mm3 0.0-0.5 BASOPHIL # (test code=BA#) 0.02 K/mm3 0.0-0.2 NUCLEATED RBC # (test code=NRBC#) 0.00 K/mm3 0.0-0.1 MANUAL DIFF REQUIRED (test code=MDIFF) YES STAIN ACCEPTABILITY (test code=STN ACCEPTABLE) TOTAL CELLS COUNTED (test code=TCC) #CELLS SEGMENTED NEUTROPHILS (test code=SEG) % 39-69 LYMPHOCYTE (test code=LYMPH) % 25-55 MONOCYTE (test code=MON) % 0-10 EOSINOPHIL (test code=EOS) % 0.0-5.0 CABOT RINGS (test code=CAB) MORPHOLOGY COMMENT (test code=MOC) PLATELET ESTIMATE (test code=PLTEST) PLATELET MORPHOLOGY (test code=PLTMORPH) REDRAW OF CLOTTED SPECIMEN [id number] W/MANUAL [id number] 04:16:00* Test Item Value Reference Range Comments WHITE BLOOD CELL (test code=WBC) 15.6 K/mm3 4.5-12.5 RED BLOOD CELL (test code=RBC) 6.10 mill/mm3 4.0-5.8 HEMOGLOBIN (test code=HGB) 16.8 gram/dL 13.0-17.5 HEMATOCRIT (test code=HCT) 51.5 % 42.0-52.0 MEAN CELL VOLUME (test code=MCV) 84.4 fL 80-98 MEAN CELL HGB (test code=MCH) 27.5 picogram 27.0-33.0 MEAN CELL HGB CONCETRATION (test code=MCHC) 32.6 gram/dL 33.0-36.0 RED CELL DISTRIBUTION WIDTH (test code=RDW) 13.3 % 11.6-16.2 RED CELL DISTRIBUTION WIDTH SD (test code=RDW-SD) 41.1 fL 37.0-51.0 PLATELET COUNT (test code=PLT) 141 K/mm3 150-450 MEAN PLATELET VOLUME (test code=MPV) 11.4 fL 6.7-11.0 IMMATURE GRANULOCYTE % (test code=IG%) 0.4 % 0.0-5.0 NUCLEATED RBC % (test code=NRBC%) 0.0 % 0-0 NEUTROPHIL # (test code=NT#) 13.02 K/mm3 1.8-7.7 IMMATURE GRANULOCYTE # (test code=IG#) 0.07 x10 3/uL 0-0.03 LYMPHOCYTE # (test code=LY#) 1.09 K/mm3 1.0-5.0 MONOCYTE # (test code=MO#) 1.44 K/mm3 0-0.8 EOSINOPHIL # (test code=EO#) 0.00 K/mm3 0.0-0.5 BASOPHIL # (test code=BA#) 0.02 K/mm3 0.0-0.2 NUCLEATED RBC # (test code=NRBC#) 0.00 K/mm3 0.0-0.1 MANUAL DIFF REQUIRED (test code=MDIFF) YES STAIN ACCEPTABILITY (test code=STN ACCEPTABLE) TOTAL CELLS COUNTED (test code=TCC) #CELLS SEGMENTED NEUTROPHILS (test code=SEG) % 39-69 LYMPHOCYTE (test code=LYMPH) % 25-55 MONOCYTE (test code=MON) % 0-10 EOSINOPHIL (test code=EOS) % 0.0-5.0 CABOT RINGS (test code=CAB) MORPHOLOGY COMMENT (test code=MOC) PLATELET ESTIMATE (test code=PLTEST) PLATELET MORPHOLOGY (test code=PLTMORPH) REDRAW OF CLOTTED SPECIMEN [id number] W/AUTO [id number] 04:15:00* Test Item Value Reference Range Comments WHITE BLOOD CELL (test code=WBC) K/mm3 4.5-12.5 RED BLOOD CELL (test code=RBC) mill/mm3 4.0-5.8 HEMOGLOBIN (test code=HGB) 16.8 gram/dL 13.0-17.5 HEMATOCRIT (test code=HCT) 51.5 % 42.0-52.0 MEAN CELL VOLUME (test code=MCV) fL 80-98 MEAN CELL HGB (test code=MCH) picogram 27.0-33.0 MEAN CELL HGB CONCETRATION (test code=MCHC) gram/dL 33.0-36.0 RED CELL DISTRIBUTION WIDTH (test code=RDW) % 11.6-16.2 RED CELL DISTRIBUTION WIDTH SD (test code=RDW-SD) fL 37.0-51.0 PLATELET COUNT (test code=PLT) K/mm3 150-450 MEAN PLATELET VOLUME (test code=MPV) fL 6.7-11.0 NEUTROPHIL % (test code=NT%) % 39.0-69.0 IMMATURE GRANULOCYTE % (test code=IG%) % 0.0-5.0 LYMPHOCYTE % (test code=LY%) % 25.0-55.0 MONOCYTE % (test code=MO%) % 0.0-10.0 EOSINOPHIL % (test code=EO%) % 0.0-5.0 BASOPHIL % (test code=BA%) % 0.0-1.0 NEUTROPHIL # (test code=NT#) K/mm3 1.8-7.7 LYMPHOCYTE # (test code=LY#) K/mm3 1.0-5.0 MONOCYTE # (test code=MO#) K/mm3 0-0.8 EOSINOPHIL # (test code=EO#) K/mm3 0.0-0.5 BASOPHIL # (test code=BA#) K/mm3 0.0-0.2 REDRAW OF CLOTTED SPECIMEN [id number] METABOLIC [id number] 03:40:00* Test Item Value Reference Range Comments SODIUM (test code=NA) 142 mmol/L 136-145 POTASSIUM (test code=K) 4.9 mmol/L 3.5-5.1 CHLORIDE (test code=CL) 106.0 mmol/L 98-107 CARBON DIOXIDE (test code=CO2) 27.0 mmol/L 21-32 ANION GAP (test code=GAP) 13.9 10-20 GLUCOSE (test code=GLU) 146 mg/dL 74-106 BLOOD UREA NITROGEN (test code=BUN) 35 mg/dL 7-18 GLOMERULAR FILTRATION RATE (test code=GFR) 59 mL/min >=60 Estimated GFR by using Modified MDRD formula.Chronic kidney disease is defined as either kidney damageor GFR <60 mL/min/1.73 m2 for >3 months. CREATININE (test code=CREAT) 1.20 mg/dL 0.7-1.3 BUN/CREATININE RATIO (test code=BUN/CREA) 29.2 10-20 CALCIUM (test code=CA) 8.7 mg/dL 8.5-10.1 [id number] 03:40:00* Test Item Value Reference Range Comments PHOSPHORUS (test code=PHOS) 3.4 mg/dL 2.5-4.9 [id number] 03:40:00* Test Item Value Reference Range Comments MAGNESIUM (test code=MAG) 2.3 mg/dL 1.8-2.4 CALCIUM [id number] 03:40:00* Test Item Value Reference Range Comments CALCIUM IONIZED (test code=SHANNAN) 1.17 mmol/L 1.12-1.32 BASIC METABOLIC [id number] 03:35:00* Test Item Value Reference Range Comments SODIUM (test code=NA) 142 mmol/L 136-145 POTASSIUM (test code=K) 4.9 mmol/L 3.5-5.1 CHLORIDE (test code=CL) 106.0 mmol/L 98-107 CARBON DIOXIDE (test code=CO2) mmol/L 21-32 ANION GAP (test code=GAP) 10-20 GLUCOSE (test code=GLU) mg/dL 74-106 BLOOD UREA NITROGEN (test code=BUN) mg/dL 7-18 GLOMERULAR FILTRATION RATE (test code=GFR) mL/min >=60 CREATININE (test code=CREAT) mg/dL 0.7-1.3 BUN/CREATININE RATIO (test code=BUN/CREA) 10-20 CALCIUM (test code=CA) mg/dL 8.5-10.1 [id number] 03:35:00* Test Item Value Reference Range Comments PHOSPHORUS (test code=PHOS) mg/dL 2.5-4.9 [id number] 03:35:00* Test Item Value Reference Range Comments MAGNESIUM (test code=MAG) mg/dL 1.8-2.4 CALCIUM [id number] 03:35:00* Test Item Value Reference Range Comments CALCIUM IONIZED (test code=SHANNAN) 1.17 mmol/L 1.12-1.32 BASIC METABOLIC [id number] 03:29:00* Test Item Value Reference Range Comments SODIUM (test code=NA) mmol/L 136-145 POTASSIUM (test code=K) mmol/L 3.5-5.1 CHLORIDE (test code=CL) mmol/L 98-107 CARBON DIOXIDE (test code=CO2) mmol/L 21-32 ANION GAP (test code=GAP) 10-20 GLUCOSE (test code=GLU) mg/dL 74-106 BLOOD UREA NITROGEN (test code=BUN) mg/dL 7-18 GLOMERULAR FILTRATION RATE (test code=GFR) mL/min >=60 CREATININE (test code=CREAT) mg/dL 0.7-1.3 BUN/CREATININE RATIO (test code=BUN/CREA) 10-20 CALCIUM (test code=CA) mg/dL 8.5-10.1 [id number] 03:29:00* Test Item Value Reference Range Comments PHOSPHORUS (test code=PHOS) mg/dL 2.5-4.9 [id number] 03:29:00* Test Item Value Reference Range Comments MAGNESIUM (test code=MAG) mg/dL 1.8-2.4 CALCIUM [id number] 03:29:00* Test Item Value Reference Range Comments CALCIUM IONIZED (test code=SHANNAN) 1.17 mmol/L 1.12-1.32 ARTERIAL BLOOD [id number] 01:13:00* Test Item Value Reference Range Comments ARTERIAL BLOOD GAS PH (test code=PHA) 7.46 7.35-7.45 ARTERIAL BLOOD GAS PCO2 (test code=PCO2A) 24.2 mm Hg 35-45 Results called to and read back by Mikal 08/25/2019; by MOUNA RESIDENTIAL BUILDING INSPECTOR ARTERIAL BLOOD GAS PO2 (test code=PO2A) 109.5 mmHg 80-100 BICARBONATE TOTAL HCO3 (test code=HCO3) 17.0 mmol/L 23.0-27.0 BASE EXCESS (test code=MEHUL) -4.4 mmol/L -3.0-5.0 Results called to and read back by Mikal 08/25/2019; by MOUNA RESIDENTIAL BUILDING INSPECTOR ABG O2 SATURATION (test code=SATA) 98.3 % 90.0-98.0 ABG TYPE (test code=TYPEA) Arterial FIO2 (test code=FIO2A) 40.0 ABG PEEP (test code=PEEPA) 5.0 cmH2O ABG SITE (test code=SITEA) Rt RADIAL ARTERY MODIFIED ALLENS (test code=MODALL) Yes CHECK PERFORMED SODIUM (test code=NA/ABG) 135.2 mEq/L 135-148 POTASSIUM (test code=K/ABG) 4.4 mEq/L 3.5-4.5 CHLORIDE (test code=CL/ABG) 104 mEq/L 98-106 GLUCOSE (test code=GLU/ABG) 155 mg/dL 74-99 HEMATOCRIT (test code=HCT/ABG) 49 % 42-52 IONIZED CALCIUM (test code=CAIABG) 1.17 mmol/L 1.1-1.37 TOTAL HGB (test code=THB) 16.8 gram/dL 13.0-17.5 HGB O2 SAT (test code=HBOSAT) 97.2 % 94.00-98.00 CARBOXYHEMOGLOBIN (test code=HOHGBT) 0.8 %totalHg 0.5-1.5 METHEMOGLOBIN (test code=METHGB) 0.3 % 0.0-1.50 O2 CONTENT (test code=O2CT) 23.0 % vol 18.0-22.0 - XR CHEST 1 [id number] 07:16:00 FAX: Hung Laura PA [place]: [address] St: ADM FAX: Y Antoine,Davie J M [phone] FAX: Atul Maynard MD [phone] Name: MULUGETA DOTSON [facility] : 1945 Age/S: 73/M [address] [facility] Unit #: [id number] Loc: [address] [address] Phys: Hung Laura Acct: [id number] Dis Date: Status: ADM IN ONE #: [phone] Exam Date: 08/24/2019 0700 FAX #: [phone] Reason: NGT LEFT NARE PLACEMENT. EXAMS: CPT CODE: [id number] XR CHEST 1 V 58161 CLINICAL HISTO RY: NG tube placement TECHNIQUE: AP chest x-ray COMP ARISON: Same date, 1 hour earlier IMPRESSION: Interval placement of NG tube into the stomach; side port at the level o f the gastroesophageal junction. Recommend advancement. Otherw ise unchanged appearance of the chest compared to earlier today. LOCATION: LP at 0716 Reported and si gned by: Lilian Cruz D.O. CC: Hung Laura; Maia Schultz; Atul Maynard MD Technologist: Sridevi Myers) Trnscrd Date/Time/By: 08/24/2019 (0716) : By: [email or web address] O rig Print D/T: S: 08/24/2019 (0719) PAGE 1 Signed Report - XR CHEST 1 [id number] 07:03:00 FAX: Hung Laura [place]: [address] St: ADM FAX: Davie Allen [phone] FAX: Atul Maynard MD [phone] Name: MULUGETA DOTSON [facility] : 1945 Age/S: 73/M [address] Unit #: [id number] Loc: V.S07 [address] [address] Phys: Hung Laura Acct: [id number] Dis Date: Status: ADM IN ONE #: [phone] Exam Date: 08/24/2019639 FAX #: [phone] Reason: NGT PLACEMENT EXAMS: CPT CODE: [id number] XR CHEST 1 V 63770 CLINICAL HISTO RY: Atrial fibrillation, NG tube placement TECHNIQUE: AP chest x-r ay COMPARISON: Previous day. IMPRESSION: NG tube has been removed. Low lung volumes with bibas ilar subsegmental atelectasis. No airspace consolidation or pleural effu dodie. Cardiomegaly. Atherosclerotic vascular calcification of the thorac ic aorta. LOCATION: LP at 0703 Reported and signed by: Lilian Cruz D.O. CC: Hung Laura; Davie Schultz; Atul Maynard MD Technologist: Parisa linn Trnscrd Date/Time/By: 08/24/2019 (0703) : By: [email or web address] Orig Print D/T: S: 08/24/2019 (0706) PAGE 1 Signed Report CBC W/AUTO [id number] 03:43:00* Test Item Value Reference Range Comments WHITE BLOOD CELL (test code=WBC) 14.3 K/mm3 4.5-12.5 RED BLOOD CELL (test code=RBC) 5.84 mill/mm3 4.0-5.8 HEMOGLOBIN (test code=HGB) 16.1 gram/dL 13.0-17.5 HEMATOCRIT (test code=HCT) 48.7 % 42.0-52.0 MEAN CELL VOLUME (test code=MCV) 83.4 fL 80-98 MEAN CELL HGB (test code=MCH) 27.6 picogram 27.0-33.0 MEAN CELL HGB CONCETRATION (test code=MCHC) 33.1 gram/dL 33.0-36.0 RED CELL DISTRIBUTION WIDTH (test code=RDW) 13.5 % 11.6-16.2 RED CELL DISTRIBUTION WIDTH SD (test code=RDW-SD) 40.8 fL 37.0-51.0 PLATELET COUNT (test code=PLT) 154 K/mm3 150-450 MEAN PLATELET VOLUME (test code=MPV) 12.1 fL 6.7-11.0 NEUTROPHIL % (test code=NT%) 81.9 % 39.0-69.0 IMMATURE GRANULOCYTE % (test code=IG%) 0.3 % 0.0-5.0 LYMPHOCYTE % (test code=LY%) 9.5 % 25.0-55.0 MONOCYTE % (test code=MO%) 8.1 % 0.0-10.0 EOSINOPHIL % (test code=EO%) 0.0 % 0.0-5.0 BASOPHIL % (test code=BA%) 0.2 % 0.0-1.0 NUCLEATED RBC % (test code=NRBC%) 0.0 % 0-0 NEUTROPHIL # (test code=NT#) 11.67 K/mm3 1.8-7.7 IMMATURE GRANULOCYTE # (test code=IG#) 0.04 x10 3/uL 0-0.03 LYMPHOCYTE # (test code=LY#) 1.36 K/mm3 1.0-5.0 MONOCYTE # (test code=MO#) 1.15 K/mm3 0-0.8 EOSINOPHIL # (test code=EO#) 0.00 K/mm3 0.0-0.5 BASOPHIL # (test code=BA#) 0.03 K/mm3 0.0-0.2 NUCLEATED RBC # (test code=NRBC#) 0.00 K/mm3 0.0-0.1 BASIC METABOLIC [id number] 03:30:00* Test Item Value Reference Range Comments SODIUM (test code=NA) 140 mmol/L 136-145 POTASSIUM (test code=K) 4.2 mmol/L 3.5-5.1 CHLORIDE (test code=CL) 109.0 mmol/L 98-107 CARBON DIOXIDE (test code=CO2) 24.0 mmol/L 21-32 ANION GAP (test code=GAP) 11.2 10-20 GLUCOSE (test code=GLU) 134 mg/dL 74-106 BLOOD UREA NITROGEN (test code=BUN) 27 mg/dL 7-18 GLOMERULAR FILTRATION RATE (test code=GFR) 54 mL/min >=60 Estimated GFR by using Modified MDRD formula.Chronic kidney disease is defined as either kidney damageor GFR <60 mL/min/1.73 m2 for >3 months. CREATININE (test code=CREAT) 1.30 mg/dL 0.7-1.3 BUN/CREATININE RATIO (test code=BUN/CREA) 20.8 10-20 CALCIUM (test code=CA) 8.9 mg/dL 8.5-10.1 [id number] 03:30:00* Test Item Value Reference Range Comments PHOSPHORUS (test code=PHOS) 2.7 mg/dL 2.5-4.9 [id number] 03:30:00* Test Item Value Reference Range Comments MAGNESIUM (test code=MAG) 2.3 mg/dL 1.8-2.4 CALCIUM [id number] 03:30:00* Test Item Value Reference Range Comments CALCIUM IONIZED (test code=SHANNAN) 1.24 mmol/L 1.12-1.32 BASIC METABOLIC [id number] 03:22:00* Test Item Value Reference Range Comments SODIUM (test code=NA) 140 mmol/L 136-145 POTASSIUM (test code=K) 4.2 mmol/L 3.5-5.1 CHLORIDE (test code=CL) 109.0 mmol/L 98-107 CARBON DIOXIDE (test code=CO2) mmol/L 21-32 ANION GAP (test code=GAP) 10-20 GLUCOSE (test code=GLU) mg/dL 74-106 BLOOD UREA NITROGEN (test code=BUN) mg/dL 7-18 GLOMERULAR FILTRATION RATE (test code=GFR) mL/min >=60 CREATININE (test code=CREAT) mg/dL 0.7-1.3 BUN/CREATININE RATIO (test code=BUN/CREA) 10-20 CALCIUM (test code=CA) mg/dL 8.5-10.1 [id number] 03:22:00* Test Item Value Reference Range Comments PHOSPHORUS (test code=PHOS) mg/dL 2.5-4.9 [id number] 03:22:00* Test Item Value Reference Range Comments MAGNESIUM (test code=MAG) mg/dL 1.8-2.4 CALCIUM [id number] 03:22:00* Test Item Value Reference Range Comments CALCIUM IONIZED (test code=SHANNAN) 1.24 mmol/L 1.12-1.32 CBC W/AUTO [id number] 03:18:00* Test Item Value Reference Range Comments WHITE BLOOD CELL (test code=WBC) K/mm3 4.5-12.5 RED BLOOD CELL (test code=RBC) mill/mm3 4.0-5.8 HEMOGLOBIN (test code=HGB) 16.1 gram/dL 13.0-17.5 HEMATOCRIT (test code=HCT) 48.7 % 42.0-52.0 MEAN CELL VOLUME (test code=MCV) fL 80-98 MEAN CELL HGB (test code=MCH) picogram 27.0-33.0 MEAN CELL HGB CONCETRATION (test code=MCHC) gram/dL 33.0-36.0 RED CELL DISTRIBUTION WIDTH (test code=RDW) % 11.6-16.2 RED CELL DISTRIBUTION WIDTH SD (test code=RDW-SD) fL 37.0-51.0 PLATELET COUNT (test code=PLT) K/mm3 150-450 MEAN PLATELET VOLUME (test code=MPV) fL 6.7-11.0 NEUTROPHIL % (test code=NT%) % 39.0-69.0 IMMATURE GRANULOCYTE % (test code=IG%) % 0.0-5.0 LYMPHOCYTE % (test code=LY%) % 25.0-55.0 MONOCYTE % (test code=MO%) % 0.0-10.0 EOSINOPHIL % (test code=EO%) % 0.0-5.0 BASOPHIL % (test code=BA%) % 0.0-1.0 NEUTROPHIL # (test code=NT#) K/mm3 1.8-7.7 LYMPHOCYTE # (test code=LY#) K/mm3 1.0-5.0 MONOCYTE # (test code=MO#) K/mm3 0-0.8 EOSINOPHIL # (test code=EO#) K/mm3 0.0-0.5 BASOPHIL # (test code=BA#) K/mm3 0.0-0.2 BASIC METABOLIC [id number] 03:15:00* Test Item Value Reference Range Comments SODIUM (test code=NA) mmol/L 136-145 POTASSIUM (test code=K) mmol/L 3.5-5.1 CHLORIDE (test code=CL) mmol/L 98-107 CARBON DIOXIDE (test code=CO2) mmol/L 21-32 ANION GAP (test code=GAP) 10-20 GLUCOSE (test code=GLU) mg/dL 74-106 BLOOD UREA NITROGEN (test code=BUN) mg/dL 7-18 GLOMERULAR FILTRATION RATE (test code=GFR) mL/min >=60 CREATININE (test code=CREAT) mg/dL 0.7-1.3 BUN/CREATININE RATIO (test code=BUN/CREA) 10-20 CALCIUM (test code=CA) mg/dL 8.5-10.1 [id number] 03:15:00* Test Item Value Reference Range Comments PHOSPHORUS (test code=PHOS) mg/dL 2.5-4.9 [id number] 03:15:00* Test Item Value Reference Range Comments MAGNESIUM (test code=MAG) mg/dL 1.8-2.4 CALCIUM [id number] 03:15:00* Test Item Value Reference Range Comments CALCIUM IONIZED (test code=SHANNAN) 1.24 mmol/L 1.12-1.32 - XR CHEST 1 [id number] 16:40:00 FAX: Salma Herbert NP [phone] [place]: St: [facility] FAX: Davie Allen [phone] FAX: Atul Maynard MD [phone] Name: MULUGETA DOTSON [facility] : 1945 Age/S: 73/M [address] Unit #: [id number] Loc: [place] [address] Phys: Salma Herbert SHEEP RANCHER Acct: [id number] Dis Date: Status: ADM IN ONE #: [phone] Exam Date: 08/23/2019 1617 FAX #: [phone] Reason: Replacement of NG tube EXAMS: CPT CODE: [id number] XR CHEST 1 V 09291 REASON FOR EXAM: Replacement of NG tube EXAM ORDER DATE: 08/23/2019 12:00 AM Ordering: Salma Herbert NP Attending:Atul Maynard MD Location: PROCEDURE: - XR CHEST 1 V COMPARIS ON: FINDINGS: Portable AP frontal view of the chest obtained at 4 :17 PM shows the heart size is minimally enlarged. Pulmonary vasculatures are minimally congested. IMPRESSION: NG tube tip is in th e stomach at 164 0 Reported and signed by: Livan Damon M.D. CC: Salma Herbert NP; Davie Schultz; Atul Maynard MD Technologist: Akilah Jin RT(R) Trnscrd Date/Time/By: 2019 (2716) : By: ParminderVTL Orig Print D/T: S: 08/23/2019 (4746) PAGE 1 Signed Report BASIC METABOLIC [id number] 02:52:00* Test Item Value Reference Range Comments SODIUM (test code=NA) 140 mmol/L 136-145 POTASSIUM (test code=K) 3.9 mmol/L 3.5-5.1 CHLORIDE (test code=CL) 108.0 mmol/L 98-107 CARBON DIOXIDE (test code=CO2) 25.0 mmol/L 21-32 ANION GAP (test code=GAP) 10.9 10-20 GLUCOSE (test code=GLU) 110 mg/dL 74-106 BLOOD UREA NITROGEN (test code=BUN) 17 mg/dL 7-18 GLOMERULAR FILTRATION RATE (test code=GFR) 59 mL/min >=60 Estimated GFR by using Modified MDRD formula.Chronic kidney disease is defined as either kidney damageor GFR <60 mL/min/1.73 m2 for >3 months. CREATININE (test code=CREAT) 1.20 mg/dL 0.7-1.3 BUN/CREATININE RATIO (test code=BUN/CREA) 14.2 10-20 CALCIUM (test code=CA) 8.4 mg/dL 8.5-10.1 [id number] 02:52:00* Test Item Value Reference Range Comments PHOSPHORUS (test code=PHOS) 2.8 mg/dL 2.5-4.9 [id number] 02:52:00* Test Item Value Reference Range Comments MAGNESIUM (test code=MAG) 2.0 mg/dL 1.8-2.4 CALCIUM [id number] 02:52:00* Test Item Value Reference Range Comments CALCIUM IONIZED (test code=SHANNAN) mmol/L 1.12-1.32 BASIC METABOLIC [id number] 02:52:00* Test Item Value Reference Range Comments SODIUM (test code=NA) 140 mmol/L 136-145 POTASSIUM (test code=K) 3.9 mmol/L 3.5-5.1 CHLORIDE (test code=CL) 108.0 mmol/L 98-107 CARBON DIOXIDE (test code=CO2) 25.0 mmol/L 21-32 ANION GAP (test code=GAP) 10.9 10-20 GLUCOSE (test code=GLU) 110 mg/dL 74-106 BLOOD UREA NITROGEN (test code=BUN) 17 mg/dL 7-18 GLOMERULAR FILTRATION RATE (test code=GFR) 59 mL/min >=60 Estimated GFR by using Modified MDRD formula.Chronic kidney disease is defined as either kidney damageor GFR <60 mL/min/1.73 m2 for >3 months. CREATININE (test code=CREAT) 1.20 mg/dL 0.7-1.3 BUN/CREATININE RATIO (test code=BUN/CREA) 14.2 10-20 CALCIUM (test code=CA) 8.4 mg/dL 8.5-10.1 [id number] 02:52:00* Test Item Value Reference Range Comments PHOSPHORUS (test code=PHOS) 2.8 mg/dL 2.5-4.9 [id number] 02:52:00* Test Item Value Reference Range Comments MAGNESIUM (test code=MAG) 2.0 mg/dL 1.8-2.4 CALCIUM [id number] 02:52:00* Test Item Value Reference Range Comments CALCIUM IONIZED (test code=SHANNAN) 1.17 mmol/L 1.12-1.32 CBC W/AUTO [id number] 02:34:00* Test Item Value Reference Range Comments WHITE BLOOD CELL (test code=WBC) 12.2 K/mm3 4.5-12.5 RED BLOOD CELL (test code=RBC) 5.58 mill/mm3 4.0-5.8 HEMOGLOBIN (test code=HGB) 15.3 gram/dL 13.0-17.5 HEMATOCRIT (test code=HCT) 46.6 % 42.0-52.0 MEAN CELL VOLUME (test code=MCV) 83.5 fL 80-98 MEAN CELL HGB (test code=MCH) 27.4 picogram 27.0-33.0 MEAN CELL HGB CONCETRATION (test code=MCHC) 32.8 gram/dL 33.0-36.0 RED CELL DISTRIBUTION WIDTH (test code=RDW) 13.6 % 11.6-16.2 RED CELL DISTRIBUTION WIDTH SD (test code=RDW-SD) 41.2 fL 37.0-51.0 PLATELET COUNT (test code=PLT) 143 K/mm3 150-450 MEAN PLATELET VOLUME (test code=MPV) 11.0 fL 6.7-11.0 NEUTROPHIL % (test code=NT%) 77.6 % 39.0-69.0 IMMATURE GRANULOCYTE % (test code=IG%) 0.3 % 0.0-5.0 LYMPHOCYTE % (test code=LY%) 12.8 % 25.0-55.0 MONOCYTE % (test code=MO%) 8.9 % 0.0-10.0 EOSINOPHIL % (test code=EO%) 0.2 % 0.0-5.0 BASOPHIL % (test code=BA%) 0.2 % 0.0-1.0 NUCLEATED RBC % (test code=NRBC%) 0.0 % 0-0 NEUTROPHIL # (test code=NT#) 9.43 K/mm3 1.8-7.7 IMMATURE GRANULOCYTE # (test code=IG#) 0.04 x10 3/uL 0-0.03 LYMPHOCYTE # (test code=LY#) 1.56 K/mm3 1.0-5.0 MONOCYTE # (test code=MO#) 1.08 K/mm3 0-0.8 EOSINOPHIL # (test code=EO#) 0.02 K/mm3 0.0-0.5 BASOPHIL # (test code=BA#) 0.02 K/mm3 0.0-0.2 NUCLEATED RBC # (test code=NRBC#) 0.00 K/mm3 0.0-0.1 MANUAL DIFF REQUIRED (test code=MDIFF) NO CBC W/AUTO [id number] 02:30:00* Test Item Value Reference Range Comments WHITE BLOOD CELL (test code=WBC) K/mm3 4.5-12.5 RED BLOOD CELL (test code=RBC) mill/mm3 4.0-5.8 HEMOGLOBIN (test code=HGB) 15.3 gram/dL 13.0-17.5 HEMATOCRIT (test code=HCT) 46.6 % 42.0-52.0 MEAN CELL VOLUME (test code=MCV) fL 80-98 MEAN CELL HGB (test code=MCH) picogram 27.0-33.0 MEAN CELL HGB CONCETRATION (test code=MCHC) gram/dL 33.0-36.0 RED CELL DISTRIBUTION WIDTH (test code=RDW) % 11.6-16.2 RED CELL DISTRIBUTION WIDTH SD (test code=RDW-SD) fL 37.0-51.0 PLATELET COUNT (test code=PLT) K/mm3 150-450 MEAN PLATELET VOLUME (test code=MPV) fL 6.7-11.0 NEUTROPHIL % (test code=NT%) % 39.0-69.0 IMMATURE GRANULOCYTE % (test code=IG%) % 0.0-5.0 LYMPHOCYTE % (test code=LY%) % 25.0-55.0 MONOCYTE % (test code=MO%) % 0.0-10.0 EOSINOPHIL % (test code=EO%) % 0.0-5.0 BASOPHIL % (test code=BA%) % 0.0-1.0 NEUTROPHIL # (test code=NT#) K/mm3 1.8-7.7 LYMPHOCYTE # (test code=LY#) K/mm3 1.0-5.0 MONOCYTE # (test code=MO#) K/mm3 0-0.8 EOSINOPHIL # (test code=EO#) K/mm3 0.0-0.5 BASOPHIL # (test code=BA#) K/mm3 0.0-0.2 - XR CHEST 1 [id number] 20:54:00 FAX: Salma Herbert NP [phone] [place]: St: ADM FAX: Davie Allen [phone] FAX: Atul Maynard MD [phone] Name: MULUGETA DOTSON [facility] : 1945 Age/S: 73/M [address] [facility] Unit #: [id number] Loc: [address] [place] [address] Phys: Salma Herbert NP Acct: [id number] Dis Date: Status: ADM IN ONE #: [phone] Exam Date: 08/22/20192029 FAX #: [phone] Reason: CXR at 1800 --NG TUBE PLACEMENT planned EXAMS: CPT CODE: [id number] XR CHEST 1 V 45274 CLINICAL HISTO RY: CXR at 1800 --NG TUBE PLACEMENT planned TECHNIQUE: AP chest x- ray COMPARISON: Previous day. IMPRESSION: Low lung volumes with bibasilar subsegmental atelectasis. No airspace consolidation or pleural effusion. Cardiomegaly. Mediastinal asael houette is unremarkable. Placement of NG tube into the stomach. LOCATION: LP at 2054 Reported and sig francisca by: Lilian Cruz D.O. CC: Salma Herbert NP; Mi Schultz; Atul Maynard MD Technologist: Jacquelyn Jin RT(R); SHEFALI PRATER RT(R) Trnscrd Date/Time/By: 08/22/2019 (2053) : By: [email or web address] O rig Print D/T: S: 08/22/2019 (2056) PAGE 1 Signed Report - MRI BRAIN W/O CONTRAST 2019-08-22 12:36:00 FAX: Davie Allen [phone] [place]: St: [facility] FAX: Atul Maynard MD [phone] FAX: Zachary Awan [phone] Name: MULUGETA DOTSON [facility] : 1945 Age/S: 73/M [address] [facility] Unit #: [id number] Loc: V.S07 [place] [address] Phys: Bart Nuñez MD Acct: [id number] Dis Date: Status: ADM IN [facility] #: [phone] Exam Date: 08/22/2019 1217 FAX #: [phone] Reason: r/o stroke EXAMS: CPT CODE: [id number] MR I BRAIN W/O CONTRAST 12957 HISTORY: Acute stroke TECHNIQUE: Sagittal T1, axial FLAIR, axial T2, axial gradi ent T2, axial T1, coronal T2, and DWI/ADC sequences of the brain were acquired. COMPARISON: Head CT from earlier today FINDINGS: Examination is degraded by motion artifact. Large acute right MCA territory infarct involving the inferolateral right frontal lob e, anterosuperior right temporal lobe, caudate, lentiform nucleus, and insula. Chronic right occipital lobe infarct. Mild periventricular band machine operator marcello microvascular ischemic changes. No intracranial hemorrhage. No intracr anial mass or mass effect. Mild global parenchymal atrophy with ex vacuo d ilation of the ventricular system. No hydrocephalus. Pituitary gland and c orpus callosum are normal in appearance. No extra-axial fluid collections. Visualized orbital contents are grossly unremarkable. Right maxillary 2.3 cm mucous retention cyst/polyp. Calvarial and skull base marrow signal is preserved. IMPRESSION: Large acute r ight MCA territory infarct, as noted on earlier CT. No MRI evidence of a cute hemorrhage. LOCATION: LP Electronically Signed by Lilian Cruz D.O. on 2019 at 1236 Reported and signed by: Lilian Cruz D.O. PAGE 1 Signed Report (CONTINUED) FAX: Davie Allen [phone] [place]: St: ADM FAX: Atul Maynard MD [phone] FAX: Zachary Awan --------- Name: MULUGETA DOTSON [facility] : 1945 Age/S: 73/M [address] [facility] it #: [id number] Loc: V.S07 [place] [address] Phys: Bart Nuñez MD Acct: [id number] Dis Date: Status: ADM IN ONE #: [phone] Exam Date: 08/22/2019 1217 FAX #: [phone] Reason: r/o stroke EXAMS: CPT CODE: [id number] MR I BRAIN W/O CONTRAST 21473 <Continued> CC: Davie Schultz; Atul Maynard MD; Bart Nuñez MD Technologist: Krish Hicks(Gatito)(MR) Trnscrd Date/Time/By: 08/22/2019 (2696) : By: [email or web address] Orig Print D/T: S: 08/22/2019 (7873) PAGE 2 Signed Report - CT HEAD/BRAIN W/O [id number] 11:50:00 Name: MULUGETA DOTSON [facility] : 1945 Age/S: 73 / M [address] Unit #: [id number] Loc: [place] [address] Phys: Bart Nuñez MD Acct: [id number] Dis Date: Status: ADM IN PHONE #: [phone] Exam Date: 08/22/2019 1135 FAX #: [phone] Reason: Repeat post TPA EXAMS: CPT CODE: [id number] CT HEAD/BRAIN W/O CONT 95793 REASON FOR EXAM: Repeat post TPA EXAM ORDER DATE: 08/22/2019 10:38 AM Ordering: Bart Nuñez MD Attending:Atul Maynard MD Location:[facility] PROCEDURE: - CT HEAD/BRAIN W/O CONT COMPARISON: 08/21/2019 FINDINGS: CT images of the brain were obtained without IV contrast. Dose modulation, iterative reconstruction, and/or weight based adjustment of the MA/KV was utilized to reduce the radiation dose to as low as reasonably achievable. Large hypodense area in the right temporal lobe consistent with an acute right MCA infarct. No evidence of midline shift or mass effect. The infarct is more apparent on today's exam. IMPRESSION: Acute right MCA nonhemorrhagic infarct at 1150 Reported and signed by: Livan Damon M.D. CC: Davie Schultz; Atul Maynard MD; Bart Nuñez MD Technologist:Supriya Martin RT(R),CT; CTDI: DLP: Trnscb Date/Time: 08/22/2019 (1150) t.RHINAL Orig Print D/T: S: 08/22/2019 (9829) PAGE 1 Signed Report [id number] 2019-08-22 02:48:00* Test Item Value Reference Range Comments GLYCOSYLATED HEMOGLOBIN (HA1C) (test code=GLYHGB) 6.0 % HbA1 SUGGESTED DIAGNOSIS: HbA1C (%) Diabetic >6.4Prediabetes 5.7 - 6.4Normal <5.7 ESTIMATED AVERAGE GLUCOSE (test code=EAG) 126 MG/DL B-TYPE NATRIURETIC [id number] 02:44:00* Test Item Value Reference Range Comments B-TYPE NATRIURETIC PEPTIDE (test code=BNP) 336.48 pgram/mL 0-100 LACTIC [id number] 02:37:00* Test Item Value Reference Range Comments LACTIC ACID (test code=LACT) 1.4 mmol/L 0.4-1.9 COMPREHENSIVE METABOLIC [id number] 02:37:00* Test Item Value Reference Range Comments SODIUM (test code=NA) 141 mmol/L 136-145 POTASSIUM (test code=K) 4.9 mmol/L 3.5-5.1 CHLORIDE (test code=CL) 109.0 mmol/L 98-107 CARBON DIOXIDE (test code=CO2) 28.0 mmol/L 21-32 ANION GAP (test code=GAP) 8.9 10-20 GLUCOSE (test code=GLU) 133 mg/dL 74-106 BLOOD UREA NITROGEN (test code=BUN) 16 mg/dL 7-18 GLOMERULAR FILTRATION RATE (test code=GFR) 59 mL/min >=60 Estimated GFR by using Modified MDRD formula.Chronic kidney disease is defined as either kidney damageor GFR <60 mL/min/1.73 m2 for >3 months. CREATININE (test code=CREAT) 1.20 mg/dL 0.7-1.3 BUN/CREATININE RATIO (test code=BUN/CREA) 13.3 10-20 TOTAL PROTEIN (test code=PROT) 6.1 gram/dL 6.4-8.2 ALBUMIN (test code=ALB) 3.3 g/dL 3.4-5.0 GLOBULIN (test code=GLOB) 2.8 gram/dL 2.7-4.2 ALBUMIN/GLOBULIN RATIO (test code=A/G) 1.2 0.75-1.50 CALCIUM (test code=CA) 8.5 mg/dL 8.5-10.1 BILIRUBIN TOTAL (test code=BILT) 0.70 mg/dL 0.0-1.0 SGOT/AST (test code=AST) 21 IUnit/L 15-37 SGPT/ALT (test code=ALT) 18 IUnit/L 12-78 ALKALINE PHOSPHATASE TOTAL (test code=ALKP) 82 IUnit/L 45-117 Note change in reference range due to change in reagent. LIPID PROFILE (CORONARY RISK)2019-08-22 02:37:00* Test Item Value Reference Range Comments TRIGLYCERIDES (test code=TRIG) 71 mg/dL 20-150 CHOLESTEROL (test code=CHOL) 147 mg/dL 0-200 CHOLESTEROL/HDL RATIO (test code=CHOLHDL) 3.0 RATIO 0-4.9 RISK ASSOCIATED WITH CHOL/HDL RATIOS: Risk Male Female1/2 AVERAGE 3.43 3.27AVERAGE 4.97 4.442X AVERAGE 9.55 7.053X AVERAGE 23.39 11.04 REFERENCE VALUE IS RELATED TO RISK LEVELS ASRECOMMENDED BY THE [facility]. HEART, LUNG, AND BLOOD INST. HDL CHOLESTEROL (test code=HDL) 40 mg/dL 40-60 LIPOPROTEIN LDL (test code=LDL) 101 mg/dL 100-129 RN PERSONNEL, CONTACT PHYSICIAN IMMEDIATELY IF THIS IS A STROKE, AMI OR CAROTID STENOSIS PATIENT WHEN THE LDL >100 (1ST OCCURENCE, THIS ADMISSION) Reference Interval: mg/dL mmol/L Optimal <100 <2.6Near/above optimal 100-129 2.6- 3.3Borderline High 130-159 3.4-4.1High 160-189 4.1-4.9Very High >=190 >=4.9=========This LDL result is a direct measurement.========= [id number] 02:37:00* Test Item Value Reference Range Comments PHOSPHORUS (test code=PHOS) 3.0 mg/dL 2.5-4.9 [id number] 02:37:00* Test Item Value Reference Range Comments MAGNESIUM (test code=MAG) 1.9 mg/dL 1.8-2.4 CBC W/O [id number] 02:27:00* Test Item Value Reference Range Comments WHITE BLOOD CELL (test code=WBC) 11.6 K/mm3 4.5-12.5 RED BLOOD CELL (test code=RBC) 5.47 mill/mm3 4.0-5.8 HEMOGLOBIN (test code=HGB) 15.1 gram/dL 13.0-17.5 HEMATOCRIT (test code=HCT) 46.3 % 42.0-52.0 MEAN CELL VOLUME (test code=MCV) 84.6 fL 80-98 MEAN CELL HGB (test code=MCH) 27.6 picogram 27.0-33.0 MEAN CELL HGB CONCETRATION (test code=MCHC) 32.6 gram/dL 33.0-36.0 RED CELL DISTRIBUTION WIDTH (test code=RDW) 13.4 % 11.6-16.2 PLATELET COUNT (test code=PLT) 174 K/mm3 150-450 MEAN PLATELET VOLUME (test code=MPV) 11.7 fL 6.7-11.0 COMPREHENSIVE METABOLIC [id number] 02:27:00* Test Item Value Reference Range Comments SODIUM (test code=NA) 141 mmol/L 136-145 POTASSIUM (test code=K) 4.9 mmol/L 3.5-5.1 CHLORIDE (test code=CL) 109.0 mmol/L 98-107 CARBON DIOXIDE (test code=CO2) mmol/L 21-32 ANION GAP (test code=GAP) 10-20 GLUCOSE (test code=GLU) mg/dL 74-106 BLOOD UREA NITROGEN (test code=BUN) mg/dL 7-18 GLOMERULAR FILTRATION RATE (test code=GFR) mL/min >=60 CREATININE (test code=CREAT) mg/dL 0.7-1.3 BUN/CREATININE RATIO (test code=BUN/CREA) 10-20 TOTAL PROTEIN (test code=PROT) gram/dL 6.4-8.2 ALBUMIN (test code=ALB) g/dL 3.4-5.0 GLOBULIN (test code=GLOB) gram/dL 2.7-4.2 ALBUMIN/GLOBULIN RATIO (test code=A/G) 0.75-1.50 CALCIUM (test code=CA) mg/dL 8.5-10.1 BILIRUBIN TOTAL (test code=BILT) mg/dL 0.0-1.0 SGOT/AST (test code=AST) IUnit/L 15-37 SGPT/ALT (test code=ALT) IUnit/L 12-78 ALKALINE PHOSPHATASE TOTAL (test code=ALKP) IUnit/L 45-117 LIPID PROFILE (CORONARY RISK)2019-08-22 02:27:00* Test Item Value Reference Range Comments TRIGLYCERIDES (test code=TRIG) mg/dL 20-150 CHOLESTEROL (test code=CHOL) mg/dL 0-200 CHOLESTEROL/HDL RATIO (test code=CHOLHDL) RATIO 0-4.9 HDL CHOLESTEROL (test code=HDL) mg/dL 40-60 LIPOPROTEIN LDL (test code=LDL) mg/dL 100-129 [id number] 02:27:00* Test Item Value Reference Range Comments PHOSPHORUS (test code=PHOS) mg/dL 2.5-4.9 [id number] 02:27:00* Test Item Value Reference Range Comments MAGNESIUM (test code=MAG) mg/dL 1.8-2.4 - CTA [id number] 20:59:00 Name: MULUGETA DOTSON [facility] : 1945 Age/S: 73 / M [address] [facility] Unit #: [id number] Loc: [place] [address] Phys: Arthur Mcclendon MD Acct: [id number] Dis Date: Status: ADM IN PHONE #: [phone] Exam Date: 08/21/2019624 FAX #: [phone] Reason: left sided deficits, afib Report Has Been Amended EXAMS: CPT CODE: [id number] CTA HEAD 79349 Addendum - 08/21/2019 SIGNED 08/21/2019 ADDENDUM: [id number] CT/CTANHDWWO ADDENDUM: 3-D angiographic images show a short occlusion of the right M1 segment. at 2059 Reported and signed by: Trevor Ramirez M.D. Transcribed: 08/21/2019 (2058) Mehran Report EXAM: CT angiography of the head; INFORMATION: Code stroke; left sided deficits; A. fib; TECHNIQUE AND FINDINGS: CT dose reduction protocol; Helical scans were obtained through the head and neck, during intravenous infusion of contrast material. Multiple curvilinear reconstructions were obtained. 3-D angiographic studies are currently been generated on an independent workstation. There is dense enhancement of the arterial system. Calcified plaques are seen at the carotid bifurcation bilaterally and also involving the origin of the internal carotid arteries. This is associated with significant stenosis. Calcified plaques are seen in the cavernous portion of the internal carotid arteries. No evidence of significant stenosis. Both anterior and middle cerebral arteries are patent. The vertebral arteries are patent and without stenosis. The right vertebral artery is hypoplastic. The basilar artery and both posterior cerebral arteries are patent. No evidence of aneurysms or vascular malformations. IMPRESSION: 1. Atherosclerotic plaques involving the ca rotid bifurcation and the PAGE 1 Signed Report (CONTINUED) Name: MULUGETA DOTSON [facility] : 1945 Age/S: 73 / M [address] [facility] Unit #: [id number] Loc: [place] [address] Phys: Arthur Mcclendon MD Acct: [id number] Dis Date: Status: ADM IN PHONE #: [phone] Exam Date: 08/21/2019624 FAX #: [phone] Reason: left sided deficits, afib Report Has Been Amended EXAMS: CPT CODE: [id number] CTA HEAD 76217 <Continued> proximal portions of the internal carotid arteries bilaterally without significant stenosis. 2. Atherosclerotic plaques of the cavernous portion of the internal carotid arteries, again without significant stenosis. 3. Otherwise, the [place] and its tributaries are unremarkable; no evidence of significant stenosis or occlusions; no evidence of aneurysms or vascular malformations. An addendum will be generated, once the 3-D reconstructions become available. Location code: [facility] at 1910 Reported and signed by: Trevor Ramirez M.D. CC: Davie Schultz; Arthur Mcclendon MD Technologist:Kolton Jeronimo RT(R) CTDI: DLP: Trnscb Date/Time: 08/21/2019 (1909) Mehran Orig Print D/T: S: 08/21/2019 (1912) PAGE 2 Signed Report - CTA [id number] 20:26:00 Name: MULUGETA DOTSON [facility] : 1945 Age/S: 73 / M [address] [facility] Unit #: [id number] Loc: [place] [address] Phys: Arthur Mcclendon MD Acct: [id number] Dis Date: Status: ADM IN PHONE #: [phone] Exam Date: 08/21/2019624 FAX #: [phone] Reason: left sided deficits, afib Report Has Been Amended EXAMS: CPT CODE: [id number] CTA NECK 13754 Addendum - 08/21/2019 SIGNED 08/21/2019 ADDENDUM: [id number] CT/CTANNKWWO ADDENDUM: 3-D angiographic studies demonstrate a short occlusion of the proximal portion of the right middle cerebral artery. at 2025 Reported and signed by: Trevor Ramirez M.D. Transcribed: 08/21/2019 (2025) Mehran Report EXAM: CT angiography of the head and neck; INFORMATION: Left-sided weakness, code stroke; TECHNIQUE AND FINDINGS: CT dose reduction protocol; Helical scans were obtained through the head and neck during intravenous infusion of contrast material. Axial images were displayed with 2.5 minute slice thickness; multiple curvilinear reconstructions were obtained. 3-D angiographic studies were generated on an independent workstation, using volume rendering and maximum intensity projection algorithms. Both common carotid, external carotid arteries as well as the cervical portions of the internal carotid arteries are patent. Calcified plaques are seen at the carotid bifurcation and the origin of both internal carotid arteries. These are not associated with significant stenoses. Both vertebral arteries are patent and without stenosis. The left vertebral artery is the dominant vessel. The basilar artery and both posterior cerebral arteries are patent. The intracranial portions of the internal carotid arteries show calcified plaques in the cavernous sinus. No evidence of significant stenosis. There is a short occlusion of the right M1 segment. Peripheral branches of the right middle cerebral artery are perfused, apparently PAGE 1 Signed Report (CONTINUED) Name: MULUGETA DOTSON [facility] : 1945 Age/S: 73 / M [address] [facility] Unit #: [id number] Loc: [place] [address] Phys: Arthur Mcclendon MD Acct: [id number] Dis Date: Status: ADM IN PHONE #: [phone] Exam Date: 2019 FAX #: [phone] Reason: left sided defic its, afib Report Has Been Amende d EXAMS: CPT CODE: [id number] CTA NECK [id number] < Continued> via collaterals. The left MCA and both ACAs are unremarkable. No evidence of aneurysms or dissection. IMPRESSION: 1. 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 Collateral supply to the peripheral right MCA branches. 2. The remainder of the craig of [place] and its tributaries is patent and without significant stenosis or additional occlusions. 3. No aneurysms or vascular malformations. 4. Calcified plaques involving the cavernous portions of both internal carotid arteries as well as the origin and the carotid bifurcation bilaterally. This is not associated with significant stenosis. 5. Vertebral arteries are patent. FINDINGS were discussed with Dr. Rodas, ER, at 2019 hours. FOR INTERNAL CODING PURPOSES ONLY RESULT CODE: CVR at 2021 Reported and signed by: Trevor Ramirez M.D. CC: Davie Schultz; Arthur Mcclendon MD Technologist:Kolton YOO(R); CHERYL WEBB CTDI: DLP: Trnscb Date/Time: 08/21/2019 (2021) Peng.GRW Orig Print D/T: S: 08/21/2019 (2024) PAGE 2 Signed Report - CTA [id number] 20:22:00 Name: [facility] 1945 Age/S: 73 / M [address] Unit #: [id number] Loc: [place] [address] Phys: Arthur Mcclendon MD Acct: [id number] Dis Date: Status: ADM IN PHONE #: [phone] Exam Date: 08/21/2019624 FAX #: [phone] Reason: left sided deficits, afib EXAMS: CPT CODE: [id number] CTA NECK [id number] EXAM: CT angiography of the head and neck; INFORMATION: Left-sided weakness, code stroke; TECHNIQUE AND FINDINGS: CT dose reduction protocol; Helical scans were obtained through the head and neck during intravenous infusion of contrast material. Axial images were displayed with 2.5 minute slice thickness; multiple curvilinear reconstructions were obtained. 3-D angiographic studies were generated on an independent workstation, using volume rendering and maximum intensity projection algorithms. Both common carotid, external carotid arteries as well as the cervical portions of the internal carotid arteries are patent. Calcified plaques are seen at the carotid bifurcation and the origin of both internal carotid arteries. These are not associated with significant stenoses. Both vertebral arteries are patent and without stenosis. The left vertebral artery is the dominant vessel. The basilar artery and both posterior cerebral arteries are patent. The intracranial portions of the internal carotid arteries show calcified plaques in the cavernous sinus. No evidence of significant stenosis. There is a short occlusion of the right M1 segment. Peripheral branches of the right middle cerebral artery are perfused, apparently via collaterals. The left MCA and both ACAs are unremarkable. No evidence of aneurysms or dissection. IMPRESSION: 1. 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 Collateral supply to the peripheral right MCA branches. 2. The remainder of the craig of [place] and its tributaries is patent and without significant stenosis or additional occlusions. 3. No aneurysms or vascular malformations. 4. Calcified plaques involving the cavernous portions of both internal carotid arteries as well as the origin and the carotid bifurcation bilaterally. This is not associated with significant stenosis. 5. Vertebral arteries are patent. FINDINGS were discussed with Dr. Tenke, ER, at 2019 hours. FOR INTERNAL CODING PURPOSES ONLY RESULT CODE: CVR PAGE 1 Signed Report (CONTINUED) Name: MULUGETA DOTSON [facility] : 1945 Age/S: 73 / M [address] Unit #: [id number] Loc: [place] [address] Phys: Arthur Mcclendon MD Acct: [id number] Dis Date: Status: ADM IN PHONE #: [phone] Exam Date: 08/21/2019624 FAX #: [phone] Reason: left sided deficits, afib EXAMS: CPT CODE: [id number] CTA NECK 84945 < Continued> at 2021 Reported and signed by: Trevor Ramirez M.D. CC: Davie Schultz; Arthur Mcclendon MD Technologist:Kolton YOO(R); CHERYL WEBB CTDI: DLP: Trnscb Date/Time: 08/21/2019 (2021) Mehran Orig Print D/T: S: 08/21/2019 (2024) PAGE 2 Signed Report - CTA [id number] 19:10:00 Name: MULUGETA DOTSON [facility] : 1945 Age/S: 73 / M [address] Unit #: [id number] Loc: [place] [address] Phys: Arthur Mcclendon MD Acct: [id number] Dis Date: Status: REG ER PHONE #: [phone] Exam Date: 08/21/2019624 FAX #: [phone] Reason: left sided deficits, afib EXAMS: CPT CODE: [id number] CTA HEAD 56010 EXAM: CT angiography of the head; INFORMATION: Code stroke; left sided deficits; A. fib; TECHNIQUE AND FINDINGS: CT dose reduction protocol; Helical scans were obtained through the head and neck, during intravenous infusion of contrast material. Multiple curvilinear reconstructions were obtained. 3-D angiographic studies are currently been generated on an independent workstation. There is dense enhancement of the arterial system. Calcified plaques are seen at the carotid bifurcation bilaterally and also involving the origin of the internal carotid arteries. This is associated with significant stenosis. Calcified plaques are seen in the cavernous portion of the internal carotid arteries. No evidence of significant stenosis. Both anterior and middle cerebral arteries are patent. The vertebral arteries are patent and without stenosis. The right vertebral artery is hypoplastic. The basilar artery and both posterior cerebral arteries are patent. No evidence of aneurysms or vascular malformations. IMPRESSION: 1. Atherosclerotic plaques involving the carotid bifurcation and the proximal portions of the internal carotid arteries bilaterally without significant stenosis. 2. Atherosclerotic plaques of the cavernous portion of the internal carotid arteries, again without significant stenosis. 3. Otherwise, the craig of [place] and its tributaries are unremarkable; no evidence of significant stenosis or occlusions; no evidence of aneurysms or vascular malformations. An addendum will be generated, once the 3-D reconstructions become available. Location code: [facility] at 1909 Reported and signed by: Trevor Ramirez M.D. PAGE 1 Signed Report (CONTINUED) Name: MULUGETA DOTSON [facility] : 1945 Age/S: 73 / M [address] [facility] Unit #: [id number] Loc: [place] [address] Phys: Arthur Mcclendon MD Acct: [id number] Dis Date: Status: REG ER PHONE #: [phone] Exam Date: 08/21/2019624 FAX #: [phone] Reason: left sided deficits, afib EXAMS: CPT CODE: [id number] CT A HEAD 46680 <Continued> CC: Davie Schultz; Arthur Mcclendon MD Technologist:Kolton Jeronimo RT(R) CTDI: DLP: Trnscb Date/Time: 08/21/2019 (1909) [email or web address] Orig Print D/T: S: 08/21/2019 (1912) PAGE 2 Signed Report - XR CHEST 1 [id number] 17:58:00 FAX: Davie Allen [phone] [place]: St: REG FAX: Arthur Mcclendon [phone] Name: MULUGETA DOTSON [facility] : 1945 Age/S: 73/M [address] [facility] Unit #: [id number] Loc: [place] [address] Phys: Arthur Mcclendon MD Acct: [id number] Dis Date: Status: REG ER PHONE #: [phone] Exam Date: 08/21/2019 1735 FAX #: [phone] Reason: CODE STROKE EXAMS: CPT CODE: [id number] XR CHEST 1 V 89786 EXAM: Chest x-ray, one view; INFORMATION: Code stroke; left-sided weakness; FINDINGS: The heart is moderately enlarged. Lungs are clear; no infiltrates, no edema; no effusions; no pneumothorax. IMPRESSION: 1. Moderate cardiomegaly. 2. Otherwise, no evidence of active cardiopulmonary disease. Location code: [facility] at 1758 Reported and signed by: Trevor Ramirez M.D. CC: Davie Schultz; Arthur Mcclendon MD Technologist: Jacqueline Myers) Trnwyrd Date/Time/By: (1757) : By: ParminderGRJuan F Orig Print D/T: S: 08/21/2019 (1800) PAGE 1 Signed Report BASIC METABOLIC [id number] 17:48:00* Test Item Value Reference Range Comments SODIUM (test code=NA) 142 mmol/L 136-145 POTASSIUM (test code=K) 4.0 mmol/L 3.5-5.1 CHLORIDE (test code=CL) 109.0 mmol/L 98-107 CARBON DIOXIDE (test code=CO2) 26.0 mmol/L 21-32 ANION GAP (test code=GAP) 11.0 10-20 GLUCOSE (test code=GLU) 110 mg/dL 74-106 BLOOD UREA NITROGEN (test code=BUN) 17 mg/dL 7-18 GLOMERULAR FILTRATION RATE (test code=GFR) 49 mL/min >=60 Estimated GFR by using Modified MDRD formula.Chronic kidney disease is defined as either kidney damageor GFR <60 mL/min/1.73 m2 for >3 months. CREATININE (test code=CREAT) 1.40 mg/dL 0.7-1.3 BUN/CREATININE RATIO (test code=BUN/CREA) 12.1 10-20 CALCIUM (test code=CA) 8.5 mg/dL 8.5-10.1 [id number] 17:48:00* Test Item Value Reference Range Comments TROPONIN-I (test code=TROPI) 0.021 ng/mL 0-0.045 - CT HEAD/BRAIN W/O [id number] 17:40:00 Name: MULUGETA DOTSON [facility] : 1945 Age/S: 73 / M [address] [facility] Unit #: [id number] Loc: [place] [address] Phys: Arthur Mcclendon MD Acct: [id number] Dis Date: Status: REG ER PHONE #: [phone] Exam Date: 08/21/2019 1722 FAX #: [phone] Reason: right sided weakness Report Has Been Amended EXAMS: CPT CODE: [id number] CT HEAD/BRAIN W/O CONT 29184 Addendum - 08/21/2019 SIGNED 08/21/2019 ADDENDUM: [id number] CT/CTHDBRWO ADDENDUM: FINDINGS were discussed with Dr. Mcclendon, ER, at 1730 hours; FOR INTERNAL CODING PURPOSES ONLY RESULT CODE: CVR at 1740 Reported and signed by: Trevor Ramirez M.D. Transcribed: 08/21/2019 (174) Mehran Report EXAM: CT of the head without contrast; INFORMATION: right-sided and left-sided weakness; code stroke; TECHNIQUE AND FINDINGS: CT dose redu ction protocol; 2.5 mm axial scans; There is no evidence of intra or extra-axial hemorrhage, mass lesions or midline shift. 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 There are mild hypodensities involv ing the periventricular and deep white matter. Otherwise, unremarkable gra y/white matter differentiation. Ventricles are asymmetric with moder ate dilatation of the right ventricle. Sulci and basilar cisterns are inta ct. Calcifications of the internal carotid arteries and the left vertebral artery. The calvarium is intact. A mucoid retention cyst is s een in the antral portion of the right maxillary sinus. Mastoid air cells are well aerated. IMPRESSION: 1. No evidence of in tracranial hemorrhage or acute territorial PAGE 1 Sig francisca Report (CONTINUED) Name: MULUGETA DOTSON [facility] : 1945 Age/S: 73 / M [address] Unit #: [id number] Loc: [place] [address] Phys: Arthur Mcclendon MD Acct: [id number] Dis Date: Status: REG ER PHONE #: [phone] Exam Date: 08/21/2019 172 FAX #: [phone] Reason: right sided weakness Report Has Been Amended EXAMS: CPT CODE: [id number] CT HEAD/BRAIN W/O CONT 26661 <Continued> infarction. 2. Chronic right FLEET OPERATIONS MANAGER infarct. 3. Mild chronic ischemic white matter changes. 4. Right maxillary retention cyst. Location code: [facility] at 1734 Reported and signed by: Trevor Ramirez M.D. CC: Davie Schultz; Arthur Mcclendon MD Technologist:Yvonne Olsen RT(R) CTDI: DLP: Trnscb D ate/Time: 08/21/2019 (4923) Mehran Orig Print D/T: S: 08/21/2019 (3641) PAGE 2 Signed Report BASIC METABOLIC [id number] 17:37:00* Test Item Value Reference Range Comments SODIUM (test code=NA) 142 mmol/L 136-145 POTASSIUM (test code=K) 4.0 mmol/L 3.5-5.1 CHLORIDE (test code=CL) 109.0 mmol/L 98-107 CARBON DIOXIDE (test code=CO2) mmol/L 21-32 ANION GAP (test code=GAP) 10-20 GLUCOSE (test code=GLU) mg/dL 74-106 BLOOD UREA NITROGEN (test code=BUN) mg/dL 7-18 GLOMERULAR FILTRATION RATE (test code=GFR) mL/min >=60 CREATININE (test code=CREAT) mg/dL 0.7-1.3 BUN/CREATININE RATIO (test code=BUN/CREA) 10-20 CALCIUM (test code=CA) mg/dL 8.5-10.1 [id number] 17:37:00* Test Item Value Reference Range Comments TROPONIN-I (test code=TROPI) ng/mL 0-0.045 - CT HEAD/BRAIN W/O [id number] 17:34:00 Name: MULUGETA DOTSON [facility] : 1945 Age/S: 73 / M [address] [facility] Unit #: [id number] Loc: [place] [address] Phys: Arthur Mcclendon MD Acct: [id number] Dis Date: Status: REG ER PHONE #: [phone] Exam Date: 08/21/2019 1722 FAX #: [phone] Reason: right sided weakness EXAMS: CPT CODE: [id number] CT HEAD/BRAIN W/O CONT 59028 EXAM: CT of the head without contrast; INFORMATION: right-sided and left-sided weakness; code stroke; TECHNIQUE AND FINDINGS: CT dose reduction protocol; 2.5 mm axial scans; There is no evidence of intra or extra-axial hemorrhage, mass lesions or midline shift. There is encephalomalacia after right FLEET OPERATIONS MANAGER infarct. There are mild hypodensities involving the periventricular and deep white matter. Otherwise, unremarkable harper/white matter differentiation. Ventricles are asymmetric with moderate dilatation of the right ventricle. Sulci and basilar cisterns are intact. Bob cifications of the internal carotid arteries and the left vertebral artery . The calvarium is intact. A mucoid retention cyst is seen in the an tral portion of the right maxillary sinus. Mastoid air cells are wel l aerated. IMPRESSION: 1. No evidence of intracranial he morrhage or acute territorial infarction. 2. Chronic right FLEET OPERATIONS MANAGER i nfarct. 3. Mild chronic ischemic white matter changes. 4. Right maxillary retention cyst. Location code: [facility] at 1733 Reported and signed by: Trevor Ramirez M.D. CC: Davie Schultz; Arthur Mcclendon MD Technologist:Yvonne Olsen RT(R) CTDI: DLP: T rnscb Date/Time: 08/21/2019 (173) [email or web address] Orig Print D /T: S: 08/21/2019 (1491) PAGE 1 Signed Report PROTHROMBIN [id number] 17:31:00* Test Item Value Reference Range Comments PROTHROMBIN TIME PATIENT (test code=PTP) 12.1 seconds 9.0-14.0 INTERNATIONAL NORMAL RATIO (test code=INR) 1.0 0.8-1.2 The therapeutic range for oral anticoagulant therapy formost indications is an international normalized ratio (INR)of between 2.0 and 3.0. The recommended therapeutic INRrange for various clinical situations is listed below: Clinical Situation INR range Pulmonary e mbolism treatment (2.0-3.0)Venous thrombosis treatmentVenous thrombosis prophylaxis (high risk surgery)Prevention of systemic embolism from: Acute myocardial infarction Valvular heart disease Atrial fibrillation Mechanical prosthetic heart valves (2.5-3.5) IS PATIENT ON ANTICOAGULANTS? NTHROMBOPLASTIN TIME [id number] 17:31:00* Test Item Value Reference Range Comments THROMBOPLASTIN TIME PARTIAL (test code=PTT) 25.8 seconds 25.0-36.5 IS PATIENT ON ANTICOAGULANTS? NCBC W/AUTO [id number] 17:27:00* Test Item Value Reference Range Comments WHITE BLOOD CELL (test code=WBC) 10.0 K/mm3 4.5-12.5 RED BLOOD CELL (test code=RBC) 5.23 mill/mm3 4.0-5.8 HEMOGLOBIN (test code=HGB) 14.5 gram/dL 13.0-17.5 HEMATOCRIT (test code=HCT) 44.5 % 42.0-52.0 MEAN CELL VOLUME (test code=MCV) 85.1 fL 80-98 MEAN CELL HGB (test code=MCH) 27.7 picogram 27.0-33.0 MEAN CELL HGB CONCETRATION (test code=MCHC) 32.6 gram/dL 33.0-36.0 RED CELL DISTRIBUTION WIDTH (test code=RDW) 13.4 % 11.6-16.2 RED CELL DISTRIBUTION WIDTH SD (test code=RDW-SD) 41.4 fL 37.0-51.0 PLATELET COUNT (test code=PLT) 158 K/mm3 150-450 MEAN PLATELET VOLUME (test code=MPV) 11.3 fL 6.7-11.0 NEUTROPHIL % (test code=NT%) 80.8 % 39.0-69.0 IMMATURE GRANULOCYTE % (test code=IG%) 0.5 % 0.0-5.0 LYMPHOCYTE % (test code=LY%) 12.3 % 25.0-55.0 MONOCYTE % (test code=MO%) 5.5 % 0.0-10.0 EOSINOPHIL % (test code=EO%) 0.5 % 0.0-5.0 BASOPHIL % (test code=BA%) 0.4 % 0.0-1.0 NUCLEATED RBC % (test code=NRBC%) 0.0 % 0-0 NEUTROPHIL # (test code=NT#) 8.05 K/mm3 1.8-7.7 IMMATURE GRANULOCYTE # (test code=IG#) 0.05 x10 3/uL 0-0.03 LYMPHOCYTE # (test code=LY#) 1.23 K/mm3 1.0-5.0 MONOCYTE # (test code=MO#) 0.55 K/mm3 0-0.8 EOSINOPHIL # (test code=EO#) 0.05 K/mm3 0.0-0.5 BASOPHIL # (test code=BA#) 0.04 K/mm3 0.0-0.2 NUCLEATED RBC # (test code=NRBC#) 0.00 K/mm3 0.0-0.1
[2019-10-01] MEDS ORDERED: DIATRIZOATE MEGL/DIATRIZOA SOD 30 ML BTL PO ONE (00:02)
--- NOTE | 2019-10-01 00:33 | Diagnostic Imaging Report ---
EXAM: Abdomen Radiograph 1 View INDICATION: Replaced displaced PEG tube, ^with gastrografen to check peg COMPARISON: None FINDINGS: No abnormalities in the lower chest. No lines or tubes. Normal volume of stool in the colon. No dilated loops of small bowel. No abnormal abdominal calcifications.. No abnormal soft tissue masses. No pneumoperitoneum. No acute osseous abnormality. Instilled hyperdense contrast occupies the gastric lumen and duodenum, without evidence of extraluminal leak. IMPRESSION: No acute abdominal radiographic abnormality. Instilled hyperdense contrast occupies the gastric lumen and duodenum, without evidence of extraluminal leak. Signed by: Ariel Duffy DO on 10/01/2019 12:29 AM
== END 2019-10-01 00:20 | disposition home or self-care (01) ==
LOC: ER 23:44
DX: Z43.1 Encounter for attention to gastrostomy (principal); L89.153 Pressure ulcer of sacral region, stage 3; I10 Essential (primary) hypertension; E11.9 Type 2 diabetes mellitus without complications; E78.5 Hyperlipidemia, unspecified; N18.9 Chronic kidney disease, unspecified; J44.9 Chronic obstructive pulmonary disease, unspecified; K21.9 Gastro-esophageal reflux disease without esophagitis; F20.9 Schizophrenia, unspecified; I69.354 Hemiplegia and hemiparesis following cerebral infarction affecting left non-dominant side
CPT/HCPCS: 74018; 99282